=== PATIENT | female | born 1940 | race Caucasian/White ===

== ENCOUNTER → 2017-05-01 13:36 | Outpatient (CLI) | payer MEDICARE ==
[2016-04-11 09:51] VITALS: BMI 24.3
[~2017-05-01 13:36] MED LIST: ADVAIR 250/501 DISK INH; ARAVA10 MG PO; BAYER CHEWABLE81 MG PO; COUMADIN5 MG PO; CRESTOR5 MG PO; DEXILANT30 MG PO; GABAPENTIN100 MG PO; HCTZ25 MG PO; HYDROCODON-ACE1 EAC7 PO; IMDUR60 MG PO; LISINOPRIL-HCTZ1 T13 PO; LISINOPRIL10 MG PO; MAXIPIME INJ2 GM IV; MAXZIDE-25 MG T1 TAB PO; NITROSTAT0.4 MG SL; OYSCO 500+D TAB1 TAB PO; PEPCID20 MG PO; PLAVIX75 MG PO; PREDNISONE10 MG PO; PREDNISONE5 MG PO; PROAIR HFA8.5 GM INH; SODIUM CL 0.91000 ML IV; SPIRIVA18 MCG INH; SYNTHROID50 MCG PO; TUDORZA PRESS400 MCG IH; TYLENOL 325 MG325 MG PO; ULTRAM50 MG PO; VANCOMYCIN IV; VANCOMYCIN1 GM/2501 IV; VENTOLIN HFA18 GM INH; ZOFRAN4 MG PO; ZOSYN 3.373.375 G/VI IV; [UNRECOGNIZED DRUG - OTHER] PO
== END | disposition home or self-care (01) ==
LOC: D.US 13:36
DX: I65.23 Occlusion and stenosis of bilateral carotid arteries (principal)

== ENCOUNTER → 2018-01-17 14:05 | Outpatient (CLI) | payer MEDICARE ==
[2016-04-11 09:51] VITALS: BMI 24.3
== END | disposition home or self-care (01) ==
LOC: D.CT 14:05
DX: M79.605 Pain in left leg (principal); M79.604 Pain in right leg

== ENCOUNTER → 2018-02-26 09:21 | Outpatient (CLI) | payer MEDICARE ==
[2016-04-11 09:51] VITALS: BMI 24.3
== END | disposition home or self-care (01) ==
LOC: D.MRI 09:21
DX: M25.561 Pain in right knee (principal)

== ENCOUNTER → 2018-04-30 10:25 | Outpatient (CLI) | payer MEDICARE ==
[2016-04-11 09:51] VITALS: BMI 24.3
== END | disposition home or self-care (01) ==
LOC: D.US 10:25
DX: I65.23 Occlusion and stenosis of bilateral carotid arteries (principal)

== ENCOUNTER 2019-03-04 16:12 | Emergency (ER) | payer MEDICARE ==
[~2019-03-04] VITALS: Ht 157.5 cm; Wt 62.3 kg
[2019-03-04 16:13] VITALS: Ht 157.5 cm; Wt 62.3 kg
[2019-03-04 17:22] LABS: ALBUMIN 3.1 g/dL (3.4-5.0); ALKALINE PHOSPHATASE 69 U/L (46-116); ALT (SGPT) 21 U/L (10-68); BASOPHILS 0.1 % (0-2); BILIRUBIN - TOTAL 0.35 mg/dL (0.2-1.3); CALC OSMOLALITY 276 mosm/kg (275-300); CALCIUM 8.5 mg/dL (8.5-10.1); CHLORIDE - SERUM 99 mmol/L (98-107); CREATININE - SERUM 0.9 mg/dL (0.6-1.3); EOSINOPHILS 0.7 % (0-7); GLUCOSE 125 mg/dL (74-106); HEMATOCRIT 38.2 % (36.0-48.0); HEMOGLOBIN 12.5 g/dL (12-16); IMMATURE GRANULOCYTES 0.1 % (0-5); LYMPHOCYTES 6.5 % (15-50); MCHC 32.7 g/dL (31.0-37.0); MCV 85.7 fL (80.0-100.0); MEAN PLATELET VOLUME 9.8 fL (7.4-10.4); MONOCYTES 5.9 % (2-11); NEUTROPHILS 86.7 % (40-80); POTASSIUM - SERUM 4.2 mmol/L (3.5-5.1); PROTEIN - SERUM 7.7 g/dL (6.4-8.2); RBC 4.46 10x6/uL (4.00-5.40); RDW 14.6 % (11.5-14.5); SODIUM 137 mmol/L (136-145); UREA NITROGEN 17 mg/dL (7-18); WBC 7.4 10x3/uL (4.8-10.8); eGFR NON AFRICAN AMERICAN 64 mL/min (90-120)
[2019-03-04 17:28] LABS: PLATELET COUNT 206 10x3/uL (130-400)
[2019-03-04 17:31] LABS: CREATINE KINASE 56 UL (21-215); PRO BNP 393 pg/mL (0-450)
[2019-03-04 17:34] LABS: TROPONIN-I < 0.017 ng/mL (0.000-0.060)
[2019-03-04 18:44] LABS: APPEARANCE CLEAR (CLEAR); BILIRUBIN NEGATIVE (NEGATIVE); COLOR YELLOW (YELLOW); GLUCOSE NEGATIVE (NEGATIVE); KETONE NEGATIVE (NEGATIVE); NITRITE NEGATIVE (NEGATIVE); PROTEIN NEGATIVE (NEGATIVE); UROBILINOGEN NORMAL (NORMAL)
[2019-03-04] MEDS ORDERED: PEPCID40 MG PO (21:12)
[2019-03-04 21:43] VITALS: BP 168/83
== END 2019-03-04 21:43 | disposition home or self-care (01) ==
LOC: D.ER 16:12
PROVIDERS: Family Medicine
DX: J44.1 Chronic obstructive pulmonary disease with (acute) exacerbation (principal); I10 Essential (primary) hypertension

== ENCOUNTER → 2019-04-09 10:57 | Outpatient (CLI) | payer MEDICARE ==
[2019-03-04 16:13] VITALS: BMI 25.1
[~2019-04-09 10:57] MED LIST changes: +PEPCID40 MG PO
== END | disposition home or self-care (01) ==
LOC: D.HCCARDIO 10:57
PROVIDERS: ATTEND Internal Medicine Cardiovascular Disease
DX: I25.10 Atherosclerotic heart disease of native coronary artery without angina pectoris (principal)

== ENCOUNTER → 2019-04-26 08:45 | Outpatient (CLI) | payer MEDICARE ==
[2019-03-04 16:13] VITALS: BMI 25.1
== END | disposition home or self-care (01) ==
LOC: D.US 08:45
PROVIDERS: ATTEND Internal Medicine Cardiovascular Disease
DX: I65.23 Occlusion and stenosis of bilateral carotid arteries (principal)

== ENCOUNTER 2019-05-27 09:42 | Observation (INO) | payer MEDICARE ==
[~2019-05-27] VITALS: Ht 157.5 cm; Wt 50.0 kg
--- NOTE | ~2019-05-27 | CN ---
PATIENT NAME:NORI JAY MEDICAL RECORD: [id number] : 36 LOCATION:D.[facility].E10- ADMIT DATE: 05/27/19 ACCOUNT: [id number] CONSULTING PHYSICIAN: FEROZ SHEN MD REFERRING PHYSICIAN: EUNICE MURPHY MD DATE OF CONSULTATION: 05/27/2019 CARDIOLOGY CONSULT ADMITTING DIAGNOSES: 1. Atypical chest pain. 2. Coronary artery disease. 3. Previous percutaneous transluminal coronary angioplasty stent in 2013. 4. Hypertension. 5. Hyperlipidemia. 6. Chronic obstructive pulmonary disease. 7. Smoking history. HISTORY OF PRESENT ILLNESS: Ms. Jay has chest pain on the right side up near her shoulder only when she coughs. This is not at all like her previous angina. Her last cardiac intervention was 2013. Her EKG is with no ST-T abnormalities. Troponin is normal. PHYSICAL EXAMINATION: GENERAL APPEARANCE: Well-nourished, well-developed, appears stated age. Level of distress, comfortable. PSYCHIATRIC: Mental status, alert, normal affect. Orientation, oriented to time, place and person. EYES: Lids and conjunctiva, noninjected. No discharge, no pallor. ENT: Lips, teeth, gums, normal dentition. Oropharynx, no cyanosis, no pallor. NECK: Carotid arteries, bilateral normal upstroke, no bruits, no thrills. JUGULAR VEINS: No jugular venous pressure or distention. CERVICAL LYMPH NODES: Nontender, nonenlarged. THYROID: Not enlarged. Nontender. No nodules. LUNGS: Respiratory effort, unlabored. CHEST: Normal curvature. No thoracic deformity. No chest wall tenderness. Percussion, resonant. Auscultation, clear. No wheezes, no rales, no rhonchi. CARDIOVASCULAR: Precordial exam, nondisplaced. No heaves or pericardial thrills. Rate and rhythm, regular. Heart sounds, normal S1, normal S2. No S3, no gallop, no rub. Systolic murmur, not heard. Diastolic murmur, not heard. EXTREMITIES: No cyanosis, no edema. Peripheral pulses, full and equal in all extremities, except as noted. No bruits appreciated. ABDOMEN: Soft, nondistended. Normal aorta. No bruit. Nontender. No masses. Liver, nontender, no hepatomegaly. Spleen, nontender, no splenomegaly. MUSCULOSKELETAL: No joint tenderness. No joint swelling. No erythema. NEUROLOGICAL: Normal gait, normal strength, normal tone. SKIN: Warm and dry. OVERALL IMPRESSION: Atypical chest pain, it is musculoskeletal in nature. This is noncardiac. No other cardiac workup or treatment is necessary at this time. TRANSINT:[id number] Voice Confirmation ID: [id number] DOCUMENT ID: [id number] CONSULT REPORT [id number] NORI JAY JEFFREY MD CC: [id number] DICTATION DATE: 05/27/19 1202 FILTRATION PLANT MECHANIC: 05/27/19 1221 ADM IN [facility] [address] [id number]
[2019-05-27 09:47] VITALS: Ht 157.5 cm; Wt 50.0 kg
[2019-05-27 10:27] LABS: BASOPHILS 0.3 % (0-2); EOSINOPHILS 2.8 % (0-7); HEMATOCRIT 35.2 % (36.0-48.0); HEMOGLOBIN 11.7 g/dL (12-16); IMMATURE GRANULOCYTES 0.3 % (0-5); LYMPHOCYTES 13.7 % (15-50); MCH 28.5 pg (26.0-34.0); MCHC 33.2 g/dL (31.0-37.0); MCV 85.9 fL (80.0-100.0); MEAN PLATELET VOLUME 9.5 fL (7.4-10.4); MONOCYTES 12.6 % (2-11); NEUTROPHILS 70.3 % (40-80); PLATELET COUNT 167 10x3/uL (130-400); RDW 14.2 % (11.5-14.5); WBC 6.1 10x3/uL (4.8-10.8)
[2019-05-27 10:31] LABS: ALBUMIN 2.9 g/dL (3.4-5.0); ALKALINE PHOSPHATASE 67 U/L (46-116); ALT (SGPT) 21 U/L (10-68); BILIRUBIN - TOTAL 0.27 mg/dL (0.2-1.3); CALC OSMOLALITY 266 mosm/kg (275-300); CALCIUM 8.5 mg/dL (8.5-10.1); CARBON DIOXIDE 31.2 mmol/L (21.0-32.0); CHLORIDE - SERUM 98 mmol/L (98-107); GLUCOSE 107 mg/dL (74-106); POTASSIUM - SERUM 4.1 mmol/L (3.5-5.1); PROTEIN - SERUM 7.2 g/dL (6.4-8.2); SODIUM 133 mmol/L (136-145); UREA NITROGEN 15 mg/dL (7-18); eGFR NON AFRICAN AMERICAN 56 mL/min (90-120)
[2019-05-27 10:40] LABS: MAGNESIUM - SERUM 1.8 mg/dL (1.8-2.4); PRO BNP 252 pg/mL (0-450); TROPONIN-I < 0.017 ng/mL (0.000-0.060)
[2019-05-27 11:20] VITALS: BP 114/60
[2019-05-27 12:00] VITALS: BP 122/64
[2019-05-27 12:32] VITALS: BP 114/74
== END 2019-05-27 12:32 | disposition home or self-care (01) ==
LOC: D.ER 09:42 → D.EDHOLD 11:41 → D.M2 11:41 → OBSVTIME 11:51 → D.EDHOLD 12:09
PROVIDERS: Family Medicine; ADMIT Family Medicine; ATTEND Family Medicine
DX: R07.9 Chest pain, unspecified (principal); I25.10 Atherosclerotic heart disease of native coronary artery without angina pectoris; E78.5 Hyperlipidemia, unspecified; I10 Essential (primary) hypertension; J44.9 Chronic obstructive pulmonary disease, unspecified; Z95.5 Presence of coronary angioplasty implant and graft; Z87.891 Personal history of nicotine dependence

== ENCOUNTER 2019-10-27 11:43 | Inpatient (IN) | payer MEDICARE ==
[2019-10-27] VITALS (13 sets, daily range): BP systolic 118–178; BP diastolic 28–99; BMI 24.0
[~2019-10-27] VITALS: Ht 157.5 cm; Wt 68.6 kg
--- NOTE | 2019-10-27 12:15 | NUR ---
PT TAKEN OFF C-PAP AND PLACED ON 4/L/NC
[2019-10-27 12:31] LABS: BASOPHILS 0.1 % (0-2); EOSINOPHILS 0 % (0-7); HEMATOCRIT 36.2 % (36.0-48.0); HEMOGLOBIN 11.7 g/dL (12-16); IMMATURE GRANULOCYTES 0.2 % (0-5); LYMPHOCYTES 3.5 % (15-50); MCHC 32.3 g/dL (31.0-37.0); MCV 86.6 fL (80.0-100.0); MONOCYTES 8.5 % (2-11); NEUTROPHILS 87.7 % (40-80); RBC 4.18 10x6/uL (4.00-5.40); RDW 15.5 % (11.5-14.5); WBC 10.1 10x3/uL (4.8-10.8)
[2019-10-27 12:36] LABS: PLATELET COUNT 207 10x3/uL (130-400)
[2019-10-27 12:43] LABS: CALC OSMOLALITY 269 mosm/kg (275-300); CALCIUM 8.8 mg/dL (8.5-10.1); CARBON DIOXIDE 28.3 mmol/L (21.0-32.0); CHLORIDE - SERUM 97 mmol/L (98-107); CREATININE - SERUM 0.7 mg/dL (0.6-1.3); GLUCOSE 148 mg/dL (74-106); POTASSIUM - SERUM 4.3 mmol/L (3.5-5.1); SODIUM 132 mmol/L (136-145); UREA NITROGEN 17 mg/dL (7-18); eGFR NON AFRICAN AMERICAN 85 mL/min (90-120)
[2019-10-27 12:44] LABS: INR 3.26 (0.85-1.17); PROTIME 32.4 SECONDS (11.6-15.0)
[2019-10-27 12:45] LABS: APTT 65.5 SECONDS (22.8-39.4)
[2019-10-27 13:03] LABS: ALBUMIN 2.8 g/dL (3.4-5.0); ALKALINE PHOSPHATASE 55 U/L (46-116); ALT (SGPT) 15 U/L (10-68); CKMB 2.5 U/L (0.0-3.6); CREATINE KINASE 124 UL (21-215); MAGNESIUM - SERUM 1.6 mg/dL (1.8-2.4); PRO BNP 1417 pg/mL (0-450); TROPONIN-I < 0.017 ng/mL (0.000-0.060)
--- NOTE | 2019-10-27 14:35 | NUR ---
PATIENT ADMITTED FROM ER PER STRETCHER, TRANSFERED SELF TO BED. ON NASAL CANNULA ON ARRIVAL, PLACE BIPAP AT 40% OXYGEN. PATIENT DOES BECOME SHORT OF BREATH WITH TRANSFERRING SELF. LEFT HAND INFUSING WITH LEVAQUIN, LEFT AC INFUSING WITH MAGNESIUM. PATIENT DENIES PAIN. MONITOR SR.
--- NOTE | 2019-10-27 15:14 | MORECARE ---
CASE MANAGEMENT DISCHARGE SUMMARY PATIENT: NORI JAY UNIT: [id number] ADM DATE: 10/27/19 AGE: 79 : 38 SEX: F ROOM/BED: D.2303 AUTHOR: SABI CORTES PHYSICIAN: REFERRING PHYSICIAN: JACOBO ARORA MD DATE OF SERVICE: 10/27/19 Discharge Plan Patient Name: NORI JAY Facility: [facility]:[place] : 1940 Planned Disposition: Home Anticipated Discharge Date: 10/29/19 Discharge Date: Expected LOS: 2 Initial Reviewer: [email or web address] Initial Review Date: 10/27/2019 Generated: 10/27/19 4:14 pm Patient Name: NORI JAY Page [phone] at 1514 All edits/amendments must be made on the electronic document DICTATION DATE: 10/27/19 151 REIMBURSEMENT ANALYST: RUPAL 10/27/19 151 RPT#: [id number] DC DATE: STATUS: ADM IN [facility] [address] [place] [address] END OF REPORT
--- NOTE | 2019-10-27 15:23 | MORECARE ---
CASE MANAGEMENT DISCHARGE SUMMARY PATIENT: NORI JAY UNIT: [id number] ADM DATE: 10/27/19 AGE: 79 : 38 SEX: F ROOM/BED: D.2303 AUTHOR: SABI CORTES PHYSICIAN: REFERRING PHYSICIAN: JACOBO ARORA MD DATE OF SERVICE: 10/27/19 Discharge Plan Patient Name: NORI JAY Facility: [facility]:[place] : 1940 Planned Disposition: Home Anticipated Discharge Date: 10/29/19 Discharge Date: Expected LOS: 2 Initial Reviewer: [email or web address] Initial Review Date: 10/27/2019 Generated: 10/27/19 4:23 pm Last DP export: 10/27/19 2:14 p Patient Name: NORI JAY Page [phone] at 1523 All edits/amendments must be made on the electronic document DICTATION DATE: 10/27/19 1523 FURNACE ROOM SUPERVISOR: RUPAL 10/27/19 1523 RPT#: [id number] DC DATE: STATUS: ADM IN [facility] [address] [place] [address] END OF REPORT
[2019-10-27 15:25] LABS: % SATURATION 7 % (15-55); IRON 19 ug/dl (35-150); TOTAL IRON BIND CAPACITY 238 ug/dl (260-445); UNSAT IRON BIND CAPACITY 219 ug/dl (150-375)
[2019-10-27] MEDS ORDERED: GABAPENTIN100 MG PO (15:41)
[2019-10-27] MEDS ORDERED: NORVASC2.5 MG PO (15:42)
--- NOTE | 2019-10-27 15:47 | MORECARE ---
CASE MANAGEMENT DISCHARGE SUMMARY PATIENT: NORI JAY UNIT: [id number] ADM DATE: 10/27/19 AGE: 79 : 38 SEX: F ROOM/BED: D.2303 AUTHOR: SEBASTIANDOC PHYSICIAN: REFERRING PHYSICIAN: JACOBO ARORA MD DATE OF SERVICE: 10/27/19 Discharge Plan Patient Name: NORI JAY Facility: [facility]:[place] : 1940 Planned Disposition: Home Anticipated Discharge Date: 10/29/19 Discharge Date: Expected LOS: 2 Initial Reviewer: [email or web address] Initial Review Date: 10/27/2019 Generated: 10/27/19 4:46 pm DCP- Discharge Planning Updated by [email or web address]: Petra Durán on 10/27/19 2:[address] DC PLAN: Return home independently with her significant other. ANTICIPATED DC NEEDS: Denied known dc needs. CM met with patient to complete initial dc planning assessment. CM educated patient on the CM role and verbal consent given by patient to complete assessment. CM verified patient's address, phone number, and emergency contact phone numbers. Patient lives at home independently with her significant other. At discharge patient plans to return home and feels this is a safe discharge. CM discussed availability of home health, rehab services, and medical equipment. Patient denied known discharge needs at this time. Transportation provider at discharge will be Alfonzo. CM will continue to follow and will assist as needed with dc plans/needs. Petra Durán RN, [facility] DCPIA - Discharge Planning Initial Assessment Updated by [email or web address]: Petra Durán on 10/27/19 3:44 pm * Is the patient Alert and Oriented? Yes * How many steps to enter\exit or inside your home? None * PCP Dr. Bethea * Pharmacy [facility] [address] [place] [phone] * Preadmission Environment Home with Family * ADLs Independent * Equipment Cane Nebulizer Oxygen * Other Equipment Home oxygen with portability. Chris is DME provider. * List name and contact numbers for known caregivers / representatives who currently or will assist patient after discharge: Alfonzo Beltran - [facility] - [phone] * Verbal permission to speak to the caregivers and representatives has been obtained from the patient. Yes * Community resources currently utilized None * Additional services required to return to the preadmission environment? No * Can the patient safely return to the preadmission environment? Yes * Has this patient been hospitalized within the prior 30 days at any hospital? No Last DP export: 10/27/19 2:23 p Patient Name: NORI JAY Page [phone] at 1547 All edits/amendments must be made on the electronic document DICTATION DATE: 10/27/19 1546 MARBLE INSTALLER: RUAPL 10/27/196 RPT#: [id number] DC DATE: STATUS: ADM IN [facility] [address] [place] [address] END OF REPORT
--- NOTE | 2019-10-27 16:36 | NUR ---
ASSESSMENT COMPLETED PATIENT ANSWERS QUESTIONS APPRIOPIATELY. FRIEND HERE UPDATE GIVEN. BREATHING BETTER ON BIPAP.
--- NOTE | 2019-10-27 17:27 | NUR ---
DR. ESPINOSA HERE. DINNER TRAY SERVED. ATE ONE BITE AND BECAME TOO SHORT OF BREATH TO EAT. BIPAP MASK REPLACED. TALKED WITH ABOUT LIFE SUPPORT HAVE A TUBE PLACED DOWN HER THROAT IF SHE BECOMES UNABLE TO BREATH OR IF SHE WANTS CPR DONE IF HEART STOPS, SHE STATES SHE DOES NOT WANT CPR OR TO PLACED ON LIFE SUPPORT AND HER DAUGHTER HAS ALL THE PAPERWORK, HER DAUGHTER WILL BE HERE TOMORROW. DR. ESPINOSA NOTIFIED. PO MED TAKEN.
--- NOTE | 2019-10-27 18:00 | NUR ---
PHILLIPS CATH INSERTED IN ENGINEER THIRD ASSISTANT 16 [place] WITHOUT DIFFICULTY, IMMEDIATE RETURN OF CLEAR YELLOW URINE. PATIENT TOLERATED WELL. PHILLIPS SECURE TO RIGHT THIGH. PATIENT RESTING COMFORTABLY ON BIPAP. 1/2 NS INFUSING RIGHT AC AT 75 ML HOUR. NO REDNESS OR SWELLING AT SITE.
[2019-10-27 18:38] LABS: APPEARANCE SL CLDY (CLEAR); BILIRUBIN NEGATIVE (NEGATIVE); COLOR DK YELLOW (YELLOW); GLUCOSE NEGATIVE (NEGATIVE); KETONE NEGATIVE (NEGATIVE); NITRITE NEGATIVE (NEGATIVE); PROTEIN TRACE mg/dL (NEGATIVE); SPECIFIC GRAVITY 1.025 (1.005-1.020); UROBILINOGEN NORMAL (NORMAL)
--- NOTE | 2019-10-27 19:00 | NUR ---
REPORT RECECIVED. RECEIVED PATIENT IN BED. AWAKE ALERT AND ORIENTED X 4. ON BIPAP. ASSESSMENT COMPLETED PER FLOW SHEET WITH NO ACUTE DISTRESS OBSERVED AT PRESENT. MONITORS CONNECTED TO PATIENT WITH ALARMS SET. VSS. CALL LIGHT IN REACH AND ABLE TO UTILIZE TO MAKE NEEDS KNOWN.
--- NOTE | 2019-10-27 20:05 | NUR ---
PATIENT TOLL SERVICE OBSERVER LIGHT. ENTERED ROOM PATIENT FOUND TO BE DYSPNEIC/TACHYPNEIC AND USING ACCESSORY MUSCLES RESP 30-35 02 SAT 96% AND REMAINS ON BIPAP AT ORDERED SETTINGS. SKIN FLUSHED/DIAPHORETIC. DENIES PAIN. BP 200/110 HR 106. HOB ELEVATED MORE TO EASE BREATHING. DR. JESÚS WALDEN
--- NOTE | 2019-10-27 20:10 | NUR ---
SPOKE WITH DR. ESPINOSA. UPDATED ON PAIALANTS CURRENT CONDITION. NEW ORDERS RECEIVED.
--- NOTE | 2019-10-27 20:14 | NUR ---
MORPHINE 2 MG IVP ADMIN AND EFFECTIVE. RESP EFFORT/RATE DECREASED. BP LOWERED TO 140'S SYSTOLIC. PATIENT EXPRESSED FEELING BETTER. CALL LIGHT IN REACH
--- NOTE | 2019-10-27 21:00 | NUR ---
RESTING QUIETLY WITH EYES CLOSED, EASILY ROUSED AND ALERT. VSS. RESP EVEN AND UNLABORED RR20. CONTINUES ON BIPAP. CALL LIGHT IN REACH
--- NOTE | 2019-10-27 23:00 | NUR ---
RESTING WITH EYES CLOSED, EASILY ROUSED AND ALERT. VSS. REASSESSMENT COMPLETED PER FLOW SHEET. WITH NO ACUTE DISTRESS OBSERVED. CONTINUES ON BIPAP
[2019-10-28] VITALS (71 sets, daily range): BP systolic 106–209; BP diastolic 57–117; Ht 157.5 cm; Wt 68.6 kg
--- NOTE | 2019-10-28 01:00 | NUR ---
RESTING WITH EYES CLOSED, EASILY ROUSED AND ALERT. VSS
--- NOTE | 2019-10-28 03:00 | NUR ---
REASSESSMENT COMPLETED PER FLOW SHEET. CONTINUE POC
[2019-10-28 03:38] LABS: BASOPHILS 0.2 % (0-2); EOSINOPHILS 0 % (0-7); HEMATOCRIT 35.6 % (36.0-48.0); HEMOGLOBIN 11.6 g/dL (12-16); IMMATURE GRANULOCYTES 0.2 % (0-5); LYMPHOCYTES 4.4 % (15-50); MCH 28.1 pg (26.0-34.0); MCHC 32.6 g/dL (31.0-37.0); MCV 86.2 fL (80.0-100.0); MEAN PLATELET VOLUME 9.1 fL (7.4-10.4); MONOCYTES 5.4 % (2-11); NEUTROPHILS 89.8 % (40-80); PLATELET COUNT 229 10x3/uL (130-400); RBC 4.13 10x6/uL (4.00-5.40); RDW 15.5 % (11.5-14.5)
[2019-10-28 03:41] LABS: WBC 5.9 10x3/uL (4.8-10.8)
[2019-10-28 03:44] LABS: INR 3.43 (0.85-1.17); PROTIME 33.7 SECONDS (11.6-15.0)
[2019-10-28 03:53] LABS: ANION GAP 12.3 mmol/L (8-16); CALCIUM 8.8 mg/dL (8.5-10.1); CREATININE - SERUM 0.8 mg/dL (0.6-1.3); PHOSPHOROUS 3.2 mg/dL (2.5-4.9); POTASSIUM - SERUM 4.3 mmol/L (3.5-5.1)
[2019-10-28 03:55] LABS: MAGNESIUM - SERUM 2.2 mg/dL (1.8-2.4)
--- NOTE | 2019-10-28 07:00 | NUR ---
PT REPORT RECEIVED FROM INSPECTOR MECHANICAL NURSE. SHIFT ASSESSMENT COMPLETED AT THIS TIME. NO VISIBLE SIGNS OF DISTRESS NOTED. WILL CONTINUE TO MONITOR
--- NOTE | 2019-10-28 08:30 | NUR ---
STARTED PT ON A CARDENE DRIP DUE TO HYPERTENSION. WILL CONTINUE TO MONITOR
--- NOTE | 2019-10-28 09:00 | NUR ---
PT GIVEN AM MEDS. TOLERATED WELL. TRIED TO EAT BREAKFAST. ATE TWO BITES BUT HAD TO GO BACK ON BIPAP BECAUSE OF SOB. WILL CONTINUE TO MONITOR
--- NOTE | 2019-10-28 11:15 | NUR ---
DR ESPINOSA AT BEDSIDE. UPDATE GIVEN. ORDER RECEIVED TO TRY VAPOTHERM SO PT CAN ATTEMPT TO EAT LUNCH. REASSESSMENT COMPLETED. WILL CONTINUE TO MONITOR
--- NOTE | 2019-10-28 12:15 | NUR ---
PT PLACED ON VAPOTHERM BY RT. 40L 60% OXYGEN. WILL CONTINUE TO MONITOR. RT AT BEDSIDE.
--- NOTE | 2019-10-28 12:25 | NUR ---
PT BACK ON BIPAP. UNABLE TO TOLERATE BEING ON VAPOTHERM DUE TO SOB. NO VISIBLE SIGNS OF DISTRESS NOTED. WILL CONTINUE TO MONITOR
--- NOTE | 2019-10-28 13:00 | NUR ---
PT RESTING IN BED CURRENTLY. NO VISIBLE SIGNS OF DISTRESS NOTED. WILL CONTINUE TO MONITOR
--- NOTE | 2019-10-28 15:00 | NUR ---
PT RESTING IN BED. FAMILY AT BEDSIDE. PT BECAME NAUSEOUS AND DRY HEAVED INTO BAG. NO VOMITING NOTED. REASSESSMENT COMPLETED. ZOFRAN GIVEN FOR NAUSEA. WILL CONTINUE TO MONITOR
--- NOTE | 2019-10-28 17:00 | NUR ---
PT RESTING IN BED. NO VISIBLE SIGNS OF DISTRESS NOTED. PT STILL USING BIPAP. WILL CONTINUE TO MONITOR
--- NOTE | 2019-10-28 19:00 | NUR ---
ASSESSMENT COMPLETED. BIPAP ON. PT C/O NOT BEING ABLE TO BREATHE, PER ORDERS GIVEN MORPHINE. PATIENT TOOK SEVERAL MINS AFTERWARDS TO RECOVER. HOB ELEVATED. DENIES ANY PAIN
--- NOTE | 2019-10-28 21:00 | NUR ---
PATIENT REFUSED TO REPOSITIONED. STATES SHE CAN'T BREATHE AND THIS IS THE ONLY POSITION SHE CAN BREATHE.
--- NOTE | 2019-10-28 23:00 | NUR ---
RE-ASSESSMENT COMPLETED. CONT TO REFUSE TO REPOSITION. MORE MORPHINE GIVEN D/T C/O AIR HUNGER. STATES SHE DOES NOT WANT AN ETT IF IT'S NEEDED. UNABLE TO TAKE BIPAP OFF FOR ANY TIME OR PT DESAT AND TAKES A WHILE TO RECOVER. PT ALSO REFUSED CHG BATH
[2019-10-29] VITALS (31 sets, daily range): BP systolic 113–202; BP diastolic 64–111
--- NOTE | 2019-10-29 02:00 | NUR ---
LAYING IN BED. EASILY WAKES. C/O HEADACHE. REFUSED TYLENOL PO D/T STATES SHE ALREADY CAN'T BREATHE WITH BIPAP ON. STATED THAT SHE CAN WAIT UNTIL THE NEXT MORPHINE IS DUE SINCE IT'S IV.
--- NOTE | 2019-10-29 03:00 | NUR ---
RE-ASSESSMENT COMPLETED. NO CHANGES SINCE LAST ASSESSMENT.
[2019-10-29 04:21] LABS: BASOPHILS 0 % (0-2); EOSINOPHILS 0 % (0-7); HEMATOCRIT 35.1 % (36.0-48.0); HEMOGLOBIN 11.2 g/dL (12-16); IMMATURE GRANULOCYTES 0.2 % (0-5); LYMPHOCYTES 1.2 % (15-50); MCH 27.6 pg (26.0-34.0); MCHC 31.9 g/dL (31.0-37.0); MCV 86.5 fL (80.0-100.0); MEAN PLATELET VOLUME 9.5 fL (7.4-10.4); MONOCYTES 3.9 % (2-11); NEUTROPHILS 94.7 % (40-80); PLATELET COUNT 246 10x3/uL (130-400); RBC 4.06 10x6/uL (4.00-5.40); RDW 15.4 % (11.5-14.5)
[2019-10-29 04:30] LABS: PROTIME 39.7 SECONDS (11.6-15.0)
[2019-10-29 04:31] LABS: WBC 12.5 10x3/uL (4.8-10.8)
[2019-10-29 04:33] LABS: INR 4.21 (0.85-1.17)
[2019-10-29 04:55] LABS: ANION GAP 10.3 mmol/L (8-16); CALCIUM 8.5 mg/dL (8.5-10.1); CARBON DIOXIDE 26.4 mmol/L (21.0-32.0); CREATININE - SERUM 0.9 mg/dL (0.6-1.3); MAGNESIUM - SERUM 2.1 mg/dL (1.8-2.4); POTASSIUM - SERUM 4.7 mmol/L (3.5-5.1)
--- NOTE | 2019-10-29 05:02 | NUR ---
REPOSITIONED PATIENT, C/O CAN'T BREATHE BUT RECOVERED AFTER APPROX 5 MINS
--- NOTE | 2019-10-29 07:00 | NUR ---
PT REPORT RECEIVED FROM LPN HOME HEALTH NURSE. NO VISIBLE SIGNS OF DISTRESS NOTED. SHIFT ASSESSMENT COMPLETED AT THIS TIME. PT REQUESTING MORPHINE FOR AIR HUNGER. WILL CONTINUE TO MONITOR
--- NOTE | 2019-10-29 09:00 | NUR ---
PT RESTING IN BED. FAMILY AT BEDSIDE. NO VISIBLE SIGNS OF DISTRESS NOTED. WILL CONTINUE TO MONITOR.
--- NOTE | 2019-10-29 11:00 | NUR ---
PT RESTING IN BED. REASSESSMENT COMPLETED AT THIS TIME. NO VISIBLE SIGNS OF DISTRESS NOTED. WILL CONTINUE TO MONITOR
--- NOTE | 2019-10-29 12:03 | NUR ---
DAUGHTER IN ROOM. BROUGHT COPY OF LIVING WILL FOR PT. WILL CONTINUE TO MOINTOR
--- NOTE | 2019-10-29 13:00 | NUR ---
PT RESTING IN BED. FAMILY IN ROOM. DR ESPINOSA AT BEDSIDE. UPDATE GIVEN. NEW ORDER FOR XANAX RECEIVED. WILL CONTINUE TO MONITOR
--- NOTE | 2019-10-29 17:00 | NUR ---
PT TRIED TO EAT DINNER TRAY. TOOK ONE BITE AND HAD TO GO BACK ON BIPAP. PT WANTS TO TRY AGAIN. WILL CONTINUE TO MONITOR
--- NOTE | 2019-10-29 17:36 | NUR ---
PT TOLERATED A FEW BITES OF FOOD WHILE BEING OFF BIPAP. HOWEVER PT BECAME TIRED AND SOB. PUT BIPAP MASK BACK ON PT AND WILL CONTINUE TO MONITOR
--- NOTE | 2019-10-29 19:44 | NUR ---
SHIFT ASSESSMENT COMPLETE. PATIENT DENIES ANY NEEDS AT THIS TIME. CALL LIGHT WITHIN REACH, BED IN LOW POSITION.
--- NOTE | 2019-10-29 21:07 | NUR ---
PATIENT MEDS GIVEN PER ORDER. PATIENT STATES THAT SHE DOES NOT WANT HER BREATHING TREATMENTS TONIGHT IF SHE IS ASLEEP. PATIENT ALSO STATES SHE TOLD RESPIRATORY NOT TO WAKE HER FOR TREATMENT.
[2019-10-30] VITALS (24 sets, daily range): BP systolic 108–180; BP diastolic 64–97
--- NOTE | 2019-10-30 00:26 | NUR ---
PATIENT VERY ANXIOUS, RR 35-40, AND SPO2 95%. PATIENT IS UNABLE TO TAKE BIPAP MASK OFF DUE TO SPO2 DECREASING INTO THE 80'S WITHIN 1-2 MINUTES. MEDS GIVEN FOR AIR HUNGER AND ANXIETY. CALL LIGHT WITHIN REACH, BED IN LOW POSITION.
[2019-10-30 03:39] LABS: BASOPHILS 0 % (0-2); EOSINOPHILS 0 % (0-7); HEMATOCRIT 34.5 % (36.0-48.0); IMMATURE GRANULOCYTES 0.2 % (0-5); LYMPHOCYTES 1.9 % (15-50); MCH 27.4 pg (26.0-34.0); MCHC 31.9 g/dL (31.0-37.0); MEAN PLATELET VOLUME 9.2 fL (7.4-10.4); MONOCYTES 4.8 % (2-11); NEUTROPHILS 93.1 % (40-80); PLATELET COUNT 212 10x3/uL (130-400); RBC 4.01 10x6/uL (4.00-5.40); RDW 15.2 % (11.5-14.5)
[2019-10-30 03:41] LABS: WBC 9.3 10x3/uL (4.8-10.8)
[2019-10-30 03:51] LABS: CALCIUM 8.5 mg/dL (8.5-10.1); CARBON DIOXIDE 26.5 mmol/L (21.0-32.0); CREATININE - SERUM 0.9 mg/dL (0.6-1.3); MAGNESIUM - SERUM 2.3 mg/dL (1.8-2.4); PHOSPHOROUS 3.4 mg/dL (2.5-4.9)
[2019-10-30 03:53] LABS: POTASSIUM - SERUM 5.5 mmol/L (3.5-5.1)
[2019-10-30 03:55] LABS: INR 4.09 (0.85-1.17); PROTIME 40.1 SECONDS (11.6-15.0)
--- NOTE | 2019-10-30 07:15 | NUR ---
REPORT RECEIVED. ASSESSMENT COMPPLETE PER FLOW SHEET. VSS. NO NEW CHANGES WILL CONTINUE TO MONITOR
--- NOTE | 2019-10-30 08:43 | NUR ---
NUTRITION F//U PT REMAINS ON BIPAP. NURSING REPORTS PT UNABLE TO TAKE PO DUE TO BIPAP USE. MAY BENEFIT FROM PROCALAMINE PPN. WILL CONTINUE TO MONITOR. RD FOLLOWING
--- NOTE | 2019-10-30 09:00 | NUR ---
PT RESTING COMFORTABLY REPOSITIOEND FOR COMFORT. WILL CONTINUE TO MONITOR
--- NOTE | 2019-10-30 11:00 | NUR ---
REASSESSMENT COMPLETE PER FLOW SHEET. VSS. NO NEW CHANGES PT RESTING COMFORTABLY WILL CONTINUE TOMONITOR
--- NOTE | 2019-10-30 13:10 | NUR ---
FAMILY AT BEDSIDE GIVEN UDPATE NO NEW CAHNGES WILL CONTINUE TO MONITOR
--- NOTE | 2019-10-30 15:00 | NUR ---
REASSESSMENT COMPLETE PER FLOW SHEET. NO NEW CHANES PT RESTING COMFORTABLY WILL CONTINUE TO MONITOR
--- NOTE | 2019-10-30 17:10 | NUR ---
FAMILY AT BEDSIDE. NO NEW CHANGES. PT RESTING COMFORTABLY WILL CONTINUE TO MONITOR
--- NOTE | 2019-10-30 19:16 | NUR ---
SWITCHED SUPPLEMENTAL O2 DEVICE TO VAPOTHERM 25L 30% 02
--- NOTE | 2019-10-30 19:25 | NUR ---
PATIENT WANTED TO TRY VAPOTHERM AGAIN WHILE FAMILY WAS NOT PRESENT DUE TO ANXIETY SHE GETS WITH EVERYONE IN ROOM. RT RYLEE HERE CHANGING PATIENT OVER TO VAPOTHERM.
--- NOTE | 2019-10-30 19:52 | NUR ---
PATIENT HAS VERY LABORED BREATHING AND WANTS TO GO BACK ON BIPAP. SPO2 WAS 92% AT THIS TIME. BIPAP PLACED ON PATIENT.
--- NOTE | 2019-10-30 23:00 | NUR ---
Reassessment complete with no changes at this time. Call light within reach, bed in low position.
[2019-10-31] VITALS (24 sets, daily range): BP systolic 16–191; BP diastolic 44–99
--- NOTE | 2019-10-31 03:00 | NUR ---
Reassessment complete with no changes noted at this time. Call light within reach, bed in low position.
--- NOTE | 2019-10-31 03:17 | NUR ---
PATIENT VERY ANXIOUS, LABORED BREATHING. XANAX GIVEN FOR ANXIETY PER MD ORDER. CALL LIGHT WITHIN REACH, BED IN LOW POSITION.
[2019-10-31 04:32] LABS: BASOPHILS 0 % (0-2); EOSINOPHILS 0 % (0-7); HEMATOCRIT 36.1 % (36.0-48.0); HEMOGLOBIN 11.4 g/dL (12-16); IMMATURE GRANULOCYTES 0.2 % (0-5); LYMPHOCYTES 2.7 % (15-50); MCH 27.3 pg (26.0-34.0); MCHC 31.6 g/dL (31.0-37.0); MCV 86.4 fL (80.0-100.0); MEAN PLATELET VOLUME 9.7 fL (7.4-10.4); MONOCYTES 5.2 % (2-11); NEUTROPHILS 91.9 % (40-80); PLATELET COUNT 231 10x3/uL (130-400); RBC 4.18 10x6/uL (4.00-5.40); RDW 15.6 % (11.5-14.5)
[2019-10-31 04:34] LABS: WBC 6.4 10x3/uL (4.8-10.8)
[2019-10-31 04:46] LABS: ANION GAP 9.3 mmol/L (8-16); CALCIUM 8.6 mg/dL (8.5-10.1); CARBON DIOXIDE 30.5 mmol/L (21.0-32.0); CREATININE - SERUM 0.8 mg/dL (0.6-1.3); INR 3.8 (0.85-1.17); POTASSIUM - SERUM 4.8 mmol/L (3.5-5.1); PROTIME 36.7 SECONDS (11.6-15.0)
--- NOTE | 2019-10-31 06:50 | NUR ---
CHG BATH GIVEN. PATIENT IS LABORED RESPIRATIONS. PHILLIPS CARE DONE. CALL LIGHT WITHIN REACH, BED IN LOW POSITION.
--- NOTE | 2019-10-31 07:00 | NUR ---
REPORT RECEIVED ASSESSMENT COMPLETE PER FLOW SHEET. VSS. NO NEW CHANGES WILL CONTINUE TO MONITOR
--- NOTE | 2019-10-31 08:44 | NUR ---
NUTRITION F/U PT ATE SMALL AMT BREAKFAST BEFORE RESUMING BIPAP. NURSING REPORTS PT DOES BETTER WITH LIQUIDS. WILL ADD ENSURE TO MEALS CONTINUE TO MONITOR. RD FOLLOWING
--- NOTE | 2019-10-31 09:00 | NUR ---
PT ATE 2 BITES OF BREAKFAST. BACK ON BIPAP AT THIS TIME R/T AIR HUNGER
--- NOTE | 2019-10-31 11:00 | NUR ---
REASSESSMENT COMPLETE EPER FLOW SHEET.VSS. NO NEW CAHNGES WILL CONTINUE TO MONITOR
--- NOTE | 2019-10-31 11:31 | NUR ---
Nutrition follow-up: Chart reviewed Pt with very poor po intake 2/2 breathing issues ProcalAmine PPN started @ 50 ml/hr IVF decreased to 25 ml/hr RDN following.
--- NOTE | 2019-10-31 13:00 | NUR ---
FAMILY AT BEDSIDE GIVEN UPDATE NO NEW CHANGES WILL CONTINUE TOMONITOR
--- NOTE | 2019-10-31 15:00 | NUR ---
REASSESSMENT COMPLET EPER FLOW SHEET. VSS. NO NEW CHANGES WILL CONTINUE TOMONITOR
--- NOTE | 2019-10-31 17:00 | NUR ---
PT SLEEPING COMFORTABLY VSS NO NEW CHANGES WILL CONTINUE TO MONITOR
--- NOTE | 2019-10-31 19:15 | NUR ---
PT RESTING QUIETLY, AROUSES EASILY WITH NO C/O, BIPAP IN USE WITH FIO2 @ 50 %, EXPIRATORY WHEEZES NOTED, LEFT PIV INTACT WITH 1/2 NS @ 25 CC/HR AND PROCALAMINE @ 50 CC/HR, PHILLIPS PATENT TO BSD, PULSES EQUAL AND PALPABLE, VITALS STABLE, WILL CONT TO MONITOR
--- NOTE | 2019-10-31 21:00 | NUR ---
PT ASLEEP WITH NO DISTRESS NOTED, WILL CONT TO MONITOR
--- NOTE | 2019-10-31 23:00 | NUR ---
PT REMAINS STABLE, SLEEPING, VITALS STABLE
[2019-11-01] VITALS (49 sets, daily range): BP systolic 117–184; BP diastolic 63–149
--- NOTE | 2019-11-01 01:00 | NUR ---
PT REMAINS ASLEEP, WILL CONT TO MONITOR
--- NOTE | 2019-11-01 03:00 | NUR ---
PT RESTING QUIETLY WITH BIPAP IN USE, NO DISTRESS NOTED
[2019-11-01 03:33] LABS: BASOPHILS 0.2 % (0-2); EOSINOPHILS 0 % (0-7); HEMATOCRIT 35.4 % (36.0-48.0); HEMOGLOBIN 11.4 g/dL (12-16); IMMATURE GRANULOCYTES 0.2 % (0-5); LYMPHOCYTES 4.2 % (15-50); MCH 27.3 pg (26.0-34.0); MCHC 32.2 g/dL (31.0-37.0); MCV 84.9 fL (80.0-100.0); MEAN PLATELET VOLUME 9.1 fL (7.4-10.4); NEUTROPHILS 88.4 % (40-80); RBC 4.17 10x6/uL (4.00-5.40); RDW 15.5 % (11.5-14.5); WBC 5.3 10x3/uL (4.8-10.8)
[2019-11-01 04:03] LABS: PLATELET COUNT 182 10x3/uL (130-400)
[2019-11-01 04:07] LABS: CALC OSMOLALITY 276 mosm/kg (275-300); CALCIUM 8.6 mg/dL (8.5-10.1); CHLORIDE - SERUM 100 mmol/L (98-107); CREATININE - SERUM 0.6 mg/dL (0.6-1.3); POTASSIUM - SERUM 4.3 mmol/L (3.5-5.1); SODIUM 134 mmol/L (136-145); UREA NITROGEN 28 mg/dL (7-18); eGFR NON AFRICAN AMERICAN > 90 mL/min (90-120)
[2019-11-01 04:08] LABS: GLUCOSE 146 mg/dL (74-106)
[2019-11-01 04:18] LABS: INR 3.11 (0.85-1.17); PROTIME 31.3 SECONDS (11.6-15.0)
--- NOTE | 2019-11-01 07:15 | NUR ---
REPORT RECEIVED. PT LAYING QUIETLY IN BED ON VAPOTHERM AT 30%. ALERT AND ORIENTED. PT HAS A PHILLIPS AND AN IV TO HER LEFT FOREARM WITH PROCALAMINE AT 50ML/HR AND CARDENE AT 25ML/HR. HEAD TO TOE ASSESSMENT COMPLETED. VSS. WILL CONTINUE TO MONITOR.
--- NOTE | 2019-11-01 09:48 | NUR ---
PT SITTING UP IN BED. AT BEDSIDE. VSS. NO COMPLAINTS OR NEEDS AT THIS TIME. WILL CONTINUE TO MONITOR.
--- NOTE | 2019-11-01 11:15 | NUR ---
REASSESSMENT COMPLETED. PT MAINTAINING O2 SATURATION GREATER THAN 92 ON VAPOTHERM. NO COMPLAINTS AT THIS TIME. WILL CONTINUE TO MONITOR.
--- NOTE | 2019-11-01 13:15 | NUR ---
FAMILY AT BEDSIDE. VSS. WILL CONTINUE TO MONITOR.
--- NOTE | 2019-11-01 15:30 | NUR ---
AFEBRILE. PT COMPLAINS OF BEING HOT. AIR TURNED DOWN IN ROOM. WILL CONTINUE TO MONITOR.
--- NOTE | 2019-11-01 17:20 | NUR ---
FAMILY AT BEDSIDE GIVEN UDPATE NO NEW CHANGES VSS WILL CONTINUE TOMONITOR
--- NOTE | 2019-11-01 20:28 | NUR ---
PT RESTING QUIETLY WITH BIPAP IN USE, LEFT PIV INTACT WITH PROCALAMINE @ 50 CC/HR/, PHILLIPS PATENT TO BSD, NO DISTRESS NOTED AT THIS TIME, WILL CONT TO MONITOR
--- NOTE | 2019-11-01 21:00 | NUR ---
PT REMAINS ASLEEP ON BIPAP WITH NO DISTRESS NOTED
--- NOTE | 2019-11-01 22:57 | NUR ---
PT MAKES NEEDS KNOWN, VITALS STABLE, NO DISTRESS NOTED
[2019-11-02] VITALS (24 sets, daily range): BP systolic 107–180; BP diastolic 63–110
--- NOTE | 2019-11-02 01:26 | NUR ---
PT SLEEPING WITH NO CHANGES NOTED, WILL CONT TO MONITOR
[2019-11-02 02:58] LABS: BASOPHILS 0.2 % (0-2); EOSINOPHILS 0 % (0-7); HEMATOCRIT 35.9 % (36.0-48.0); HEMOGLOBIN 11.5 g/dL (12-16); IMMATURE GRANULOCYTES 0.5 % (0-5); LYMPHOCYTES 4.9 % (15-50); MCH 27.3 pg (26.0-34.0); MCV 85.3 fL (80.0-100.0); MEAN PLATELET VOLUME 10.2 fL (7.4-10.4); NEUTROPHILS 88.4 % (40-80); PLATELET COUNT 193 10x3/uL (130-400); RBC 4.21 10x6/uL (4.00-5.40); RDW 15.5 % (11.5-14.5); WBC 6.1 10x3/uL (4.8-10.8)
--- NOTE | 2019-11-02 03:00 | NUR ---
PT AWAKENED BY PRODUCTION CELL LEADER FOR AM LABS, PT AGITATED FOR BEING AWAKENED SO EARLY, RT PRESENT FOR UPDRAFT
[2019-11-02 03:09] LABS: CALC OSMOLALITY 276 mosm/kg (275-300); CALCIUM 8.2 mg/dL (8.5-10.1); CARBON DIOXIDE 32.6 mmol/L (21.0-32.0); CHLORIDE - SERUM 101 mmol/L (98-107); CREATININE - SERUM 0.6 mg/dL (0.6-1.3); GLUCOSE 152 mg/dL (74-106); PHOSPHOROUS 2.1 mg/dL (2.5-4.9); POTASSIUM - SERUM 4.4 mmol/L (3.5-5.1); SODIUM 135 mmol/L (136-145); UREA NITROGEN 25 mg/dL (7-18); eGFR NON AFRICAN AMERICAN > 90 mL/min (90-120)
--- NOTE | 2019-11-02 05:04 | NUR ---
PT AWAKE, NO C/O @ THIS TIME, DRINKS FLUIDS WITH ASSISTANCE WITH BIPAP MASK, WILL CONT TO MONITOR
--- NOTE | 2019-11-02 14:47 | NUR ---
ASSISTED TO BEDSIDE COMMODE CHAIR-90% ASSIST-POOR WEIGHT BEARING BY PT PT STATED BREATHING EASIER SITTING UP--BATH AND LINEN CHANGE DONE -80% [id number] PLACED ON PT BY RT -HOB ELEVATED TO 45*-O2 SAT 98%
[2019-11-03] VITALS (24 sets, daily range): BP systolic 120–197; BP diastolic 61–109
[2019-11-03 03:22] LABS: BASOPHILS 0 % (0-2); EOSINOPHILS 0 % (0-7); HEMATOCRIT 36.2 % (36.0-48.0); HEMOGLOBIN 11.6 g/dL (12-16); IMMATURE GRANULOCYTES 1.1 % (0-5); LYMPHOCYTES 6.3 % (15-50); MCH 27.4 pg (26.0-34.0); MCV 85.6 fL (80.0-100.0); MEAN PLATELET VOLUME 9.6 fL (7.4-10.4); MONOCYTES 13.9 % (2-11); NEUTROPHILS 78.7 % (40-80); PLATELET COUNT 197 10x3/uL (130-400); RBC 4.23 10x6/uL (4.00-5.40); RDW 15.5 % (11.5-14.5); WBC 7.5 10x3/uL (4.8-10.8)
[2019-11-03 03:32] LABS: INR 2.45 (0.85-1.17); PROTIME 25.9 SECONDS (11.6-15.0)
[2019-11-03 03:36] LABS: CALC OSMOLALITY 281 mosm/kg (275-300); CALCIUM 8.7 mg/dL (8.5-10.1); CARBON DIOXIDE 32.3 mmol/L (21.0-32.0); CHLORIDE - SERUM 102 mmol/L (98-107); CREATININE - SERUM 0.7 mg/dL (0.6-1.3); GLUCOSE 124 mg/dL (74-106); POTASSIUM - SERUM 4.1 mmol/L (3.5-5.1); SODIUM 137 mmol/L (136-145); UREA NITROGEN 31 mg/dL (7-18); eGFR NON AFRICAN AMERICAN 85 mL/min (90-120)
[2019-11-03 03:37] LABS: PHOSPHOROUS 2.8 mg/dL (2.5-4.9)
--- NOTE | 2019-11-03 19:00 | NUR ---
SHIFT ASSESSMENT COMPLETE. VS STABLE. NO VISUAL CUES OF DISTRESS NOTED. WILL CONTINUE TO MONITOR.
--- NOTE | 2019-11-03 21:00 | NUR ---
VS STABLE. NO DISTRESS NOTED. WILL MONITOR.
--- NOTE | 2019-11-03 21:00 | NUR ---
VS STABLE. NO DISTRESS NOTED. WILL MONITOR.
--- NOTE | 2019-11-03 23:00 | NUR ---
VS STABLE. NO DISTRESS NOTED. WILL MONITOR.
[2019-11-04] VITALS (15 sets, daily range): BP systolic 115–193; BP diastolic 75–99
--- NOTE | 2019-11-04 01:00 | NUR ---
VS STABLE. NO DISTRESS NOTED. WILL MONITOR.
--- NOTE | 2019-11-04 03:00 | NUR ---
VS STABLE. NO DISTRESS NOTED. WILL MONITOR.
[2019-11-04 04:04] LABS: BASOPHILS 0 % (0-2); EOSINOPHILS 0 % (0-7); HEMATOCRIT 39.8 % (36.0-48.0); HEMOGLOBIN 12.6 g/dL (12-16); IMMATURE GRANULOCYTES 0.4 % (0-5); MCH 27.5 pg (26.0-34.0); MCHC 31.7 g/dL (31.0-37.0); MCV 86.7 fL (80.0-100.0); MEAN PLATELET VOLUME 9.9 fL (7.4-10.4); MONOCYTES 10.4 % (2-11); NEUTROPHILS 82.2 % (40-80); PLATELET COUNT 217 10x3/uL (130-400); RBC 4.59 10x6/uL (4.00-5.40); RDW 15.5 % (11.5-14.5); WBC 6.7 10x3/uL (4.8-10.8)
[2019-11-04 04:31] LABS: ALBUMIN 2.4 g/dL (3.4-5.0); ALKALINE PHOSPHATASE 35 U/L (46-116); ALT (SGPT) 32 U/L (10-68); BILIRUBIN - TOTAL 0.44 mg/dL (0.2-1.3); CALC OSMOLALITY 285 mosm/kg (275-300); CALCIUM 8.8 mg/dL (8.5-10.1); CARBON DIOXIDE 36.7 mmol/L (21.0-32.0); CHLORIDE - SERUM 102 mmol/L (98-107); CREATININE - SERUM 0.6 mg/dL (0.6-1.3); GLUCOSE 101 mg/dL (74-106); POTASSIUM - SERUM 4.2 mmol/L (3.5-5.1); PROTEIN - SERUM 5.8 g/dL (6.4-8.2); SODIUM 140 mmol/L (136-145); THYROID STIMULATING HORMONE 1.63 uIU/mL (0.36-3.74); UREA NITROGEN 32 mg/dL (7-18); eGFR NON AFRICAN AMERICAN > 90 mL/min (90-120)
--- NOTE | 2019-11-04 05:00 | NUR ---
VS STABLE. NO DISTRESS NOTED. WILL MONITOR.
--- NOTE | 2019-11-04 07:00 | NUR ---
PT REPORT RECEIVED FROM JAVA GRAILS DEVELOPER NURSE. NO VISIBLE SIGNS OF DISTRESS NOTED. SHIFT ASSESSMENT COMPLETED. WILL CONTINUE TO MONITOR
--- NOTE | 2019-11-04 08:45 | NUR ---
PAGED DR ESPINOSA CONCERNING IV ACCESS. AWAITING CALL BACK
--- NOTE | 2019-11-04 08:55 | NUR ---
DR ESPINOSA CALLED BACK. UPDATE GIVEN. ORDERED MIDLINE PLACEMENT FOR PT IV ACCESS.
--- NOTE | 2019-11-04 09:10 | NUR ---
PT SITTING UP AT BEDSIDE. NO VISIBLE SIGNS OF DISTRESS NOTED. WILL CONTINUE TO MONITOR
--- NOTE | 2019-11-04 09:23 | NUR ---
NUTRITION F/U VISITOR AT BEDSIDE. PT WITH 100% INTAKE ENSURE THIS AM AND PREPARING TO EAT A SAUSAGE AND BISCUIT. WILL CONTINUE TO PROVIDE DIET AND ENSURE. MONITOR PO INTAKE. RD FOLLOWING
--- NOTE | 2019-11-04 09:26 | NUR ---
PT BACK IN BED. VSS.
--- NOTE | 2019-11-04 11:00 | NUR ---
PT RESTING IN BED. NO VISIBLE SIGNS OF DISTRESS NOTED. REASSESSMENT COMPLETED. WILL CONTINUE TO MONITOR
--- NOTE | 2019-11-04 12:45 | NUR ---
DR ESPINOSA AT BEDSIDE. ORDERS TO TRANSFER RECEIVED. WILL CONTINUE TO MONITOR
--- NOTE | 2019-11-04 13:00 | NUR ---
PT RESTING IN BED. REQUESTED TO GO BACK ON BIPAP DUE TO SOB. PLACED PT BACK ON BIPAP. WILL CONTINUE TO MONITOR
--- NOTE | 2019-11-04 14:00 | NUR ---
CALLED RAFAEL HERMOSILLOSHAVING MACHINE OPERATOR TO GET BED FOR PT.
--- NOTE | 2019-11-04 15:00 | NUR ---
PT RESTING IN BED. NO VISIBLE SIGNS OF DISTRESS NOTED. WANTED A DRINK OF WATER. TOOK BIPAP MASK OFF AND GOT PT A SIP OF WATER. WILL CONTINUE TO MONITOR
--- NOTE | 2019-11-04 16:05 | NUR ---
BED ASSIGNMENT CALLED IN. PT GOING TO ROOM [id number]
--- NOTE | 2019-11-04 16:26 | NUR ---
OT NOTE: PT COMPLETED BED MOB TASKS WITH MIN A. PT COMPLETED SIT TO STAND WITH MIN A. PT COMPLETED EOB SITTING WITH SBA. THANK YOU,JOVITA NGUYỄN
--- NOTE | 2019-11-04 16:45 | NUR ---
TRIED CALLING REPORT TO MED 2. LEFT ON HOLD.
--- NOTE | 2019-11-04 16:50 | NUR ---
HUNG UP AND CALLED MED 2 AGAIN. WAITING ON NURSE
--- NOTE | 2019-11-04 16:53 | NUR ---
REPORT CALLED TO MIRIAM ON MED 2. PREPARING TO TRANSFER PT TO FLOOR.
--- NOTE | 2019-11-04 23:10 | NUR ---
PT LYING IN BED RESTING WITH EYES CLOSED. EASILY AROUSED TO VERBAL STIMULATION. PT IS WEARING BiPAP. O2 95% NO SIGNS OR SYMPTOMS OF RESPIRATORY DISTRESS AT THIS TIME. PHILLIPS CATHETER IN PLACE. CLEAR YELLOW URINE FLOWING. BLACK AND BLUE BRUISES TO RIGHT ARM NOTED. LEFT AC 20G SALINE LOCKED, DRESSING IS CLEAN, DRY, AND INTACT. PT STATES LAST BOWEL MOVEMENT WAS TODAY. ABDOMEN IS SOFT TO PALPATIONS. ACTIVE BOWELL SOUNDS X4. RED IRRATATED AREA TO BOTTOM AND GROIN AREA, WOUND CONSULT AND PRN NYSTATIN POWDER VERBAL ORDER PER HALLIE GALARZA APRN. BED IS IN LOWEST POSITON AND CALL LIGHT IS WITHIN REACH. PT ADVISED TO CALL WHEN GETTING TO AND FROM BED. WILL CONTINUE TO MONITOR.
[2019-11-05] VITALS: BP 155/82
--- NOTE | 2019-11-05 02:46 | NUR ---
I have reviewed this patient and I concur with the Shift Assessment completed by the Licensed Practical Nurse today this shift.
[2019-11-05 04:30] VITALS: BP 157/73
[2019-11-05 06:11] LABS: HEMATOCRIT 39.8 % (36.0-48.0); HEMOGLOBIN 12.6 g/dL (12-16); MCH 27.6 pg (26.0-34.0); MCHC 31.7 g/dL (31.0-37.0); MCV 87.1 fL (80.0-100.0); MEAN PLATELET VOLUME 10.3 fL (7.4-10.4); PLATELET COUNT 207 10x3/uL (130-400); RBC 4.57 10x6/uL (4.00-5.40); RDW 15.7 % (11.5-14.5); WBC 6.4 10x3/uL (4.8-10.8)
--- NOTE | 2019-11-05 06:29 | NUR ---
PT LYING IN BED WATCHING T.V. PT ON VAPOTHERM 30LS/60% PULSE OX 96. NO COMPLAINTS OF PAIN AT THIS TIME.
[2019-11-05 06:37] LABS: ALBUMIN 2.5 g/dL (3.4-5.0); ALKALINE PHOSPHATASE 42 U/L (46-116); ALT (SGPT) 35 U/L (10-68); BILIRUBIN - TOTAL 0.55 mg/dL (0.2-1.3); CALC OSMOLALITY 292 mosm/kg (275-300); CALCIUM 8.7 mg/dL (8.5-10.1); CARBON DIOXIDE 32.2 mmol/L (21.0-32.0); CHLORIDE - SERUM 103 mmol/L (98-107); CREATININE - SERUM 0.7 mg/dL (0.6-1.3); GLUCOSE 128 mg/dL (74-106); PROTEIN - SERUM 5.7 g/dL (6.4-8.2); SODIUM 141 mmol/L (136-145); eGFR NON AFRICAN AMERICAN 85 mL/min (90-120)
[2019-11-05 06:49] LABS: POTASSIUM - SERUM 4.7 mmol/L (3.5-5.1); UREA NITROGEN 41 mg/dL (7-18)
--- NOTE | 2019-11-05 07:00 | NUR ---
CALL LIGHT ANSWERED, PT REMOVED FROM BED SANCHEZ. REDNESS AND SCAB NOTED TO COCCYX/BOTTOM. PHILLIPS NOTED WITH DARK, YELLOW URINE. PT ASSISTED TO SIT UP ON SIDE OF BED PER REQUEST. VAPOTHERM IN PLACE AT THIS TIME. DENIES NEEDS OR PAIN AT THIS TIME. PT REPOSITIONED TO COMFORT. BED IN LOWEST POSITION. CALL LIGHT WITHIN REACH. WILL CONTINUE TO MONITOR.
--- NOTE | 2019-11-05 07:39 | NUR ---
CALL LIGHT ANSWERED, PT REMOVED FROM BED SANCHEZ. NO VOID OR BM NOTED. REDNESS AND SCAB NOTED TO COCCYX/BOTTOM. PT ASSISTED TO SIT UP ON SIDE OF BED PER REQUEST. VAPOTHERM IN PLACE AT THIS TIME. DENIES NEEDS OR PAIN AT THIS TIME. PT REPOSITIONED TO COMFORT. BED IN LOWEST POSITION. CALL LIGHT WITHIN REACH. WILL CONTINUE TO MONITOR.
[2019-11-05 08:37] LABS: ANISOCYTOSIS OCC; LYMPHOCYTES 9 % (15-50); MONOCYTES 10 % (2-11); NEUTROPHILS 80 % (40-80); PLATELET ESTIMATE NORMAL; ROULEAUX OCC
--- NOTE | 2019-11-05 10:00 | NUR ---
I have reviewed this patient and I concur with the Shift Assessment completed by the Licensed Practical Nurse today this shift.
[2019-11-05 10:09] VITALS: BP 126/72
--- NOTE | 2019-11-05 10:38 | NUR ---
PT SWITHCED FROM VAPOTHERM TO BIPAP, STATED SHE WAS HAVING SOME SLIGHT SOB. SOB IMPROVED AFTER BIPAP PLACEMENT.
[2019-11-05 11:49] LABS: INR 1.68 (0.85-1.17); PROTIME 19.2 SECONDS (11.6-15.0)
--- NOTE | 2019-11-05 12:08 | NUR ---
OT NOTE: PT PERFORMED VERY WELL TODAY. BED MOB WITH MIN ASSIST; SIT TO STAND WITH MIN ASSIST; TRANSFERS FROM BED TO CHAIR WITH MIN ASSIST; SET UP FOR GROOMING TASKS; AROM EXS TO 90 DEGREES; EDUCATED ON LE EXS WHILE UP IN CHAIR. MIRIAM STEPHENS, OTR/L
--- NOTE | 2019-11-05 12:25 | MORECARE ---
CASE MANAGEMENT DISCHARGE SUMMARY PATIENT: NORI JAY UNIT: [id number] ADM DATE: 10/27/19 AGE: 79 : 38 SEX: F ROOM/BED: D.2106 AUTHOR: SEBASTIANDOC PHYSICIAN: REFERRING PHYSICIAN: JACOBO ARORA MD DATE OF SERVICE: 11/05/19 Discharge Plan Patient Name: NORI JAY Facility: [facility]:[place] : 1940 Planned Disposition: Senior Care Acute Care Facility Anticipated Discharge Date: 10/29/19 Discharge Date: Expected LOS: 2 Initial Reviewer: [email or web address] Initial Review Date: 11/06/2019 Generated: 11/05/19 1:25 pm DCP- Discharge Planning Updated by [email or web address]: Petra Durán on 10/27/19 2:[address] DC PLAN: Return home independently with her significant other. ANTICIPATED DC NEEDS: Denied known dc needs. CM met with patient to complete initial dc planning assessment. CM educated patient on the CM role and verbal consent given by patient to complete assessment. CM verified patient's address, phone number, and emergency contact phone numbers. Patient lives at home independently with her significant other. At discharge patient plans to return home and feels this is a safe discharge. CM discussed availability of home health, rehab services, and medical equipment. Patient denied known discharge needs at this time. Transportation provider at discharge will be Alfonzo. CM will continue to follow and will assist as needed with dc plans/needs. Petra Durán RN, [facility] DCPIA - Discharge Planning Initial Assessment Updated by [email or web address]: Petra Durán on 10/27/19 3:44 pm * Is the patient Alert and Oriented? Yes * How many steps to enter\exit or inside your home? None * PCP Dr. Bethea * Pharmacy [facility] [address] [place] [phone] * Preadmission Environment Home with Family * ADLs Independent * Equipment Cane Nebulizer Oxygen * Other Equipment Home oxygen with portability. Chris is DME provider. * List name and contact numbers for known caregivers / representatives who currently or will assist patient after discharge: Alfonzo Beltran - [facility] - [phone] * Verbal permission to speak to the caregivers and representatives has been obtained from the patient. Yes * Community resources currently utilized None * Additional services required to return to the preadmission environment? No * Can the patient safely return to the preadmission environment? Yes * Has this patient been hospitalized within the prior 30 days at any hospital? No External Providers External Provider: Y[facility] Next Contact Date: 11/05/2019 Service Request Date: Service Type: Resolution: Reviewer: Comments: Last DP export: 10/27/19 2:47 p Patient Name: NORI JAY Page [phone] at 1225 All edits/amendments must be made on the electronic document DICTATION DATE: 11/05/191224 EMERY WHEEL MOLDER: RUPAL 11/05/19 1225 RPT#: [id number] DC DATE: STATUS: ADM IN [facility] [address] [place] [address] END OF REPORT
--- NOTE | 2019-11-05 12:50 | MORECARE ---
CASE MANAGEMENT DISCHARGE SUMMARY PATIENT: NORI JAY UNIT: [id number] ADM DATE: 10/27/19 AGE: 79 : 38 SEX: F ROOM/BED: D.3163 AUTHOR: SEBASTIAN,DOC PHYSICIAN: REFERRING PHYSICIAN: JACOBO ARORA MD DATE OF SERVICE: 11/05/19 Discharge Plan Patient Name: NORI JAY Facility: [facility]:[place] : 1940 Planned Disposition: Skilled Nursing Acute Care Facility Anticipated Discharge Date: 10/29/19 Discharge Date: Expected LOS: 2 Initial Reviewer: [email or web address] Initial Review Date: 11/06/2019 Generated: 11/05/19 1:50 pm Comments DCP- Discharge Planning Updated by [id number]: Chacho Mackey on 11/05/19 11:[address] Patient Name: NOIR JAY Encounter No: [id number] : 1940 Primary Insurance: MEDICARE A & B Anticipated DC Date: 10-29-2019 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 CM MET WITH PT AND STEP DAUGHTER IN ROOM. NORI JAY provided verbal consent to discuss current and ongoing needs with/in the presence of: STEP DAUGHTER. CM DISCUSSED LTACH REFERRAL AND LTACH AVAILABILITIY. PT TEARFUL AND WAS HOPING SHE WOULD BE HOME FOR IONIA. CM EXPLAINED TO PT THAT DR. ARORA FEELS PT WILL REQUIRE THREE WEEKS OF HOSPITALIZATION. PT STATES THAT THE DOCTOR IS "FULL OF SHIT". CM EXPLAINED THAT PT HAS BEEN VERY ILL AND THAT IT WOULD TAKE SOME TIME TO RECUPERATE AND GET PT'S OXYGEN NEEDS TO A LEVEL THAT CAN BE PROVIDED AT HOME FOR PT TO ACTUALLY GO HOME. PT REPORTS UNDERSTANDING, PT IN AGREEMENT WITH REFERRAL TO LTACH [facility]FERRAL TO [facility] [place]. IMPORTANT MESSAGE FROM MEDICARE PROVIDED AND EXPLAINED. CM CALLED [facility] OF [facility], , LEFT DETAILED MESSAGE ASKING FOR ADMISSION DETERMINATION. CM FAXED REFERRAL TO [facility] [place] AT [phone]. CM WAITING ADMISSION DETERMINATION FROM [facility]. Chacho Mackey , CASE MANAGEMENT DCP- Discharge Planning Updated by [id number]: Petra Durán on 10/27/19 2:[address] DC PLAN: Return home independently with her significant other. ANTICIPATED DC NEEDS: Denied known dc needs. CM met with patient to complete initial dc planning assessment. CM educated patient on the CM role and verbal consent given by patient to complete assessment. CM verified patient's address, phone number, and emergency contact phone numbers. Patient lives at home independently with her significant other. At discharge patient plans to return home and feels this is a safe discharge. CM discussed availability of home health, rehab services, and medical equipment. Patient denied known discharge needs at this time. Transportation provider at discharge will be Alfonzo. CM will continue to follow and will assist as needed with dc plans/needs. Petra Durán RN, [facility] DCPIA - Discharge Planning Initial Assessment Updated by [id number]: Petra Durán on 10/27/19 3:44 pm * Is the patient Alert and Oriented? Yes * How many steps to enter\\exit or inside your home? None * PCP Dr. Bethea * Pharmacy [facility] [address] [place] [address] * Preadmission Environment Home with Family * ADLs Independent * Equipment Cane Nebulizer Oxygen * Other Equipment Home oxygen with portability. Chris is DME provider. * List name and contact numbers for known caregivers / representatives who currently or will assist patient after discharge: Alfonzo Bletran - [facility] other - [phone] * Verbal permission to speak to the caregivers and representatives has been obtained from the patient. Yes * Community resources currently utilized None * Additional services required to return to the preadmission environment? No * Can the patient safely return to the preadmission environment? Yes * Has this patient been hospitalized within the prior 30 days at any hospital? No Coverage Notice Reviewer: [id number] - Chacho Mackey Notice Issued Date-Time: 11/05/2019 11:35 Notice Type: IM Discharge Notice Notice Delivered To: Patient Relationship to Patient: Stem Setter Name: Delivery Method: HAND - Hand Delivered Monalisa Days: Prior Verbal Notification: Recipient Understood Notice: Yes Recipient Signature: Yes Med Rec Note Co-signed by Attending: Coverage Notice Comment: Last DP export: 12/17/19 11:25 Patient Name: NORI JAY Page 26725 at 1250 All edits/amendments must be made on the electronic document DICTATION DATE: 11/05/191248 ENGINEER OPERATIONS AND MAINTENANCE: RUPAL 11/05/191248 RPT#: [id number] DC DATE: STATUS: ADM IN [facility] [address] [place] [address] END OF REPORT
[2019-11-05 14:12] VITALS: BP 131/74
--- NOTE | 2019-11-05 14:30 | NUR ---
PT PLACED BACK ON BIPAP PER REQUEST. STATED SHE FEELS A LITTLE SOB.
--- NOTE | 2019-11-05 16:44 | MORECARE ---
CASE MANAGEMENT DISCHARGE SUMMARY PATIENT: NORI JAY UNIT: [id number] ADM DATE: 10/27/19 AGE: 79 : 38 SEX: F ROOM/BED: D.8047 AUTHOR: SEBASTIAN,DOC PHYSICIAN: REFERRING PHYSICIAN: JACOBO ARORA MD DATE OF SERVICE: 11/05/19 Discharge Plan Patient Name: NORI JAY Facility: [facility]:[place] : 1940 Planned Disposition: Care Home Acute Care Facility Anticipated Discharge Date: 10/29/19 Discharge Date: Expected LOS: 2 Initial Reviewer: [email or web address] Initial Review Date: 11/06/2019 Generated: 11/05/19 5:44 pm Comments DCP- Discharge Planning Updated by [email or web address]: Chacho Mackey on 11/05/19 11:[address] Patient Name: NORI JAY Encounter No: [id number] : 1940 Primary Insurance: MEDICARE A & B Anticipated DC Date: 10-29-2019 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 CM MET WITH PT AND STEP DAUGHTER IN ROOM. NORI JAY provided verbal consent to discuss current and ongoing needs with/in the presence of: STEP DAUGHTER. CM DISCUSSED LTACH REFERRAL AND LTACH AVAILABILITIY. PT TEARFUL AND WAS HOPING SHE WOULD BE HOME FOR CASHION. CM EXPLAINED TO PT THAT DR. ARORA FEELS PT WILL REQUIRE THREE WEEKS OF HOSPITALIZATION. PT STATES THAT THE DOCTOR IS "FULL OF SHIT". CM EXPLAINED THAT PT HAS BEEN VERY ILL AND THAT IT WOULD TAKE SOME TIME TO RECUPERATE AND GET PT'S OXYGEN NEEDS TO A LEVEL THAT CAN BE PROVIDED AT HOME FOR PT TO ACTUALLY GO HOME. PT REPORTS UNDERSTANDING, PT IN AGREEMENT WITH REFERRAL TO LTACH [facility]FERRAL TO [facility] IN [place]. IMPORTANT MESSAGE FROM MEDICARE PROVIDED AND EXPLAINED. CM CALLED [facility] OF [facility], , LEFT DETAILED MESSAGE ASKING FOR ADMISSION DETERMINATION. CM FAXED REFERRAL TO [facility] [place] AT [phone]. CM WAITING ADMISSION DETERMINATION FROM [facility]. Chacho aMckey , CASE MANAGEMENT DCP- Discharge Planning Updated by [email or web address]: Petra Durán on 10/27/19 2:[address] DC PLAN: Return home independently with her significant other. ANTICIPATED DC NEEDS: Denied known dc needs. CM met with patient to complete initial dc planning assessment. CM educated patient on the CM role and verbal consent given by patient to complete assessment. CM verified patient's address, phone number, and emergency contact phone numbers. Patient lives at home independently with her significant other. At discharge patient plans to return home and feels this is a safe discharge. CM discussed availability of home health, rehab services, and medical equipment. Patient denied known discharge needs at this time. Transportation provider at discharge will be Alfonzo. CM will continue to follow and will assist as needed with dc plans/needs. Petra Durán RN, [facility] DCPIA - Discharge Planning Initial Assessment Updated by [email or web address]: Chacho Mackey on 11/05/19 4:37 pm * Is the patient Alert and Oriented? Yes * How many steps to enter\\exit or inside your home? None * PCP Dr. Bethea * Pharmacy [facility] [address] [place] [address] * Preadmission Environment Home with Family * ADLs Independent * Equipment Cane Nebulizer Oxygen * Other Equipment Home oxygen with portability. Chris is DME provider. * List name and contact numbers for known caregivers / representatives who currently or will assist patient after discharge: Alfonzo Beltran - [facility] other - [phone] WIL JAY, SON, HILARIO JAY, SON, * Verbal permission to speak to the caregivers and representatives has been obtained from the patient. Yes * Community resources currently utilized None * Additional services required to return to the preadmission environment? No * Can the patient safely return to the preadmission environment? Yes * Has this patient been hospitalized within the prior 30 days at any hospital? No Coverage Notice Reviewer: [id number] Jovani Mackey Notice Issued Date-Time: 11/05/2019 11:35 Notice Type: IM Discharge Notice Notice Delivered To: Patient Relationship to Patient: Account Development Manager Name: Delivery Method: HAND - Hand Delivered Monalisa Days: Prior Verbal Notification: Recipient Understood Notice: Yes Recipient Signature: Yes Med Rec Note Co-signed by Attending: Coverage Notice Comment: Last DP export: 11/05/19 11:50 Patient Name: NORI JAY Page [phone] at 1644 All edits/amendments must be made on the electronic document DICTATION DATE: 11/05/191643 LEI MAKER: RUPAL 11/05/191643 RPT#: [id number] DC DATE: STATUS: ADM IN [facility] [address] [place] [address] END OF REPORT
--- NOTE | 2019-11-05 18:07 | NUR ---
OT NOTE: PT COMPLETED BED MOB TASKS WITH CGA. PT COMPLETED HYGIENE TASKS WITH LAY Mathias. THANK YOU,JOVITA NGUYỄN
[2019-11-05 19:00] VITALS: BP 147/58
[2019-11-05 20:00] VITALS: BP 147/91
--- NOTE | 2019-11-05 22:01 | NUR ---
PATIENT SITTING UP IN BED WITH BIPAP ON. IV L UPPER ARM SL. PATIENT HAS BRUISES ON HER R LOWER ARM. PATIENT STATES THAT SHE IS NOT IN PAIN AT THE TIME. PATIENT HAS REDNESS/ SCAN TO COCCIX. PATIENT DENIES ANY NEEDS AT THIS TIME. BED RAILS X2. CALL LIGHT AND BEDSIDE TABLE WITHIN REACH.
[2019-11-06 01:21] VITALS: BP 148/76
[2019-11-06 04:00] VITALS: BP 100/56; BP 142/79
[2019-11-06 04:40] LABS: BASOPHILS 0 % (0-2); EOSINOPHILS 0 % (0-7); HEMATOCRIT 36.8 % (36.0-48.0); HEMOGLOBIN 11.7 g/dL (12-16); IMMATURE GRANULOCYTES 1.1 % (0-5); LYMPHOCYTES 5.4 % (15-50); MCH 27.5 pg (26.0-34.0); MCHC 31.8 g/dL (31.0-37.0); MCV 86.6 fL (80.0-100.0); MEAN PLATELET VOLUME 9.9 fL (7.4-10.4); MONOCYTES 5.9 % (2-11); NEUTROPHILS 87.6 % (40-80); PLATELET COUNT 202 10x3/uL (130-400); RBC 4.25 10x6/uL (4.00-5.40); RDW 15.6 % (11.5-14.5)
[2019-11-06 05:03] LABS: ALBUMIN 2.4 g/dL (3.4-5.0); BILIRUBIN - TOTAL 0.37 mg/dL (0.2-1.3); CALCIUM 8.6 mg/dL (8.5-10.1); CARBON DIOXIDE 34.1 mmol/L (21.0-32.0); CREATININE - SERUM 0.8 mg/dL (0.6-1.3); POTASSIUM - SERUM 4.1 mmol/L (3.5-5.1); PROTEIN - SERUM 5.5 g/dL (6.4-8.2)
[2019-11-06 05:22] LABS: INR 1.67 (0.85-1.17)
--- NOTE | 2019-11-06 05:27 | NUR ---
PT RECEIVED LAYING IN BED AWAKE WITH BIPAP MASK ON. UPDATED BOARD AND PLAN FOR THE DAY. CALL LIGHT CLOSE.
[2019-11-06 07:59] VITALS: BP 141/65
[2019-11-06 11:23] VITALS: BP 148/65
--- NOTE | 2019-11-06 11:51 | MORECARE ---
CASE MANAGEMENT DISCHARGE SUMMARY PATIENT: NORI JAY UNIT: [id number] ADM DATE: 10/27/19 AGE: 79 : 38 SEX: F ROOM/BED: D.2104 AUTHOR: SEBASTIANDOC PHYSICIAN: REFERRING PHYSICIAN: JACOBO ARORA MD DATE OF SERVICE: 11/06/19 Discharge Plan Patient Name: NORI JAY Facility: [facility]:[place] : 1940 Planned Disposition: Senior Living Acute Care Facility Anticipated Discharge Date: 10/29/19 Discharge Date: Expected LOS: 2 Initial Reviewer: [email or web address] Initial Review Date: 11/06/2019 Generated: 11/06/19 12:51 pm Comments DCP- Discharge Planning Updated by [email or web address]: Chacho Mackey on 11/06/19 10:[address] Patient Name: NORI JAY Encounter No: [id number] : 1940 Primary Insurance: MEDICARE A & B Anticipated DC Date: 10-29-2019 Planned Disposition: Tours Captain Acute Care Facility External Planned Provider: [facility] [place] DCP follow-up note: CM FAXED REFERRAL [place] TO [facility] AT [phone]. CM WAITING ADMISSION DETERMINATION FROM [facility]. LARRY Singer DCP- Discharge Planning Updated by [id number]: Chacho Mackey on 11/05/19 11:[address] Patient Name: NORI JAY Encounter No: [id number] : 1940 Primary Insurance: MEDICARE A & B Anticipated DC Date: 10-29-2019 Planned Disposition: Tours Captain Acute Care Facility External Planned Provider: [facility] [place] DCP follow-up note: CM RECEIVED ORDER FOR LTACH REFERRAL. CM MET WITH PT AND STEP DAUGHTER IN ROOM. NORI JAY provided verbal consent to discuss current and ongoing needs with/in the presence of: STEP DAUGHTER. CM DISCUSSED LTACH REFERRAL AND LTACH AVAILABILITIY. PT TEARFUL AND WAS HOPING SHE WOULD BE HOME FOR INVERNESS. CM EXPLAINED TO PT THAT DR. ARORA FEELS PT WILL REQUIRE THREE WEEKS OF HOSPITALIZATION. PT STATES THAT THE DOCTOR IS "FULL OF SHIT". CM EXPLAINED THAT PT HAS BEEN VERY ILL AND THAT IT WOULD TAKE SOME TIME TO RECUPERATE AND GET PT'S OXYGEN NEEDS TO A LEVEL THAT CAN BE PROVIDED AT HOME FOR PT TO ACTUALLY GO HOME. PT REPORTS UNDERSTANDING, PT IN AGREEMENT WITH REFERRAL TO LTACH [facility]FERRAL TO [facility] [place]. IMPORTANT MESSAGE FROM MEDICARE PROVIDED AND EXPLAINED. CM [facility], , LEFT DETAILED MESSAGE ASKING FOR ADMISSION DETERMINATION. CM FAXED REFERRAL TO [facility] AT [phone]. CM WAITING ADMISSION DETERMINATION FROM [facility]. Chacho Mackey , CASE MANAGEMENT DCP- Discharge Planning Updated by [id number]: Petra Durán on 10/27/19 2:[address] DC PLAN: Return home independently with her significant other. ANTICIPATED DC NEEDS: Denied known dc needs. CM met with patient to complete initial dc planning assessment. CM educated patient on the CM role and verbal consent given by patient to complete assessment. CM verified patient's address, phone number, and emergency contact phone numbers. Patient lives at home independently with her significant other. At discharge patient plans to return home and feels this is a safe discharge. CM discussed availability of home health, rehab services, and medical equipment. Patient denied known discharge needs at this time. Transportation provider at discharge will be Alfonzo. CM will continue to follow and will assist as needed with dc plans/needs. Petra Durán RN, [facility] DCPIA - Discharge Planning Initial Assessment Updated by [email or web address]: Chacho Mackey on 11/05/19 4:37 pm * Is the patient Alert and Oriented? Yes * How many steps to enter\\exit or inside your home? None * PCP Dr. Bethea * Pharmacy [facility] [address] [place] [phone] * Preadmission Environment Home with Family * ADLs Independent * Equipment Cane Nebulizer Oxygen * Other Equipment Home oxygen with portability. Chris is DME provider. * List name and contact numbers for known caregivers / representatives who currently or will assist patient after discharge: Alfonzo Beltran - [facility] - [phone] WIL JAY, SON, HILARIO JAY, SON, * Verbal permission to speak to the caregivers and representatives has been obtained from the patient. Yes * Community resources currently utilized None * Additional services required to return to the preadmission environment? No * Can the patient safely return to the preadmission environment? Yes * Has this patient been hospitalized within the prior 30 days at any hospital? No Coverage Notice Reviewer: [id number] Jovani Mackey Notice Issued Date-Time: 11/05/2019 11:35 Notice Type: IM Discharge Notice Notice Delivered To: Patient Relationship to Patient: Shop Repairer Name: Delivery Method: HAND - Hand Delivered Monalisa Days: Prior Verbal Notification: Recipient Understood Notice: Yes Recipient Signature: Yes Med Rec Note Co-signed by Attending: Coverage Notice Comment: Last DP export: 11/05/19 3:44 Patient Name: NORI JAY Page [phone] at 1151 All edits/amendments must be made on the electronic document DICTATION DATE: 11/06/19 1151 OCEAN LIFEGUARD: RUPAL 11/06/19 1151 RPT#: [id number] DC DATE: STATUS: ADM IN [facility] [address] [place] [address] END OF REPORT
--- NOTE | 2019-11-06 12:25 | NUR ---
Nutrition Consult/Follow-up: Not eating very much. Pt states "you can't eat if you're not hungry". Denies N/V. Prefers Boost to Ensure. Diet: Cardiac, Mech Soft with Gravy, Ensure TID PO intake: 0-25% Wt: 142.1# (145.5# on 10/28) Last BM: 11/04 (diarrhea) Labs noted: Glu 135, Alb 2.4 Meds reviewed -Ensure changed to Boost per pt request -Rec appetite stimulant -Monitor wt -RD following
--- NOTE | 2019-11-06 13:28 | NUR ---
OT NOTE: PERFORMED BED MOB WITH MIN ASSIST; EOB SITTING WITH GOOD BALANCE; SIMPLE GROOMING WITH SET UP; FEEDING WITH SET UP; FUNCTIONAL TRANSFERS TO AND FROM BED TO CHAIR WITH WALKER AND MIN ASSIST. PT REMAINS WEAK AND SOB WITH MINIMAL EXERTION, HOWEVER, IMPROVING DAILY AND WOULD BENEFIT FROM IP REHAB. MIRIAM STEPHENS, OTR/L
[2019-11-06 15:47] VITALS: BP 153/75
--- NOTE | 2019-11-06 15:49 | NUR ---
PHILLIPS REMOVED PER PROTOCOL. PT ABLE TO GET TO BATHROOM WITH ASSIST. EXPLAINED REASON FOR REMOVAL. FAMILY IN ROOM WITH UPDATE.
--- NOTE | 2019-11-06 16:18 | NUR ---
Blanchable redness noted just above coccyx region with a scaly area that was possibly an ulcer at some point, but is now healed. Zinc paste is being used on the area. Pt is now up to bathroom, as f/c has been removed. And is also up to chair.
--- NOTE | 2019-11-06 19:30 | NUR ---
EVENING ROUNDS COMPLETE, PT LAYING IN BED, NO SIGNS OF DISTRESS. PT DENIES ANY PAIN OR NEEDS AT THIS TIME. CL IN REACH, BED IN LOWEST POSITION.
[2019-11-06 20:00] VITALS: BP 152/67
--- NOTE | 2019-11-06 23:10 | NUR ---
PT C/O NOT VOIDING SINCE REMOVAL OF PHILILPS. BLADDER SCAN COMPLETE WITH 200ML HOLDING. HALLIE THACKER APN PAGED AT THIS TIME. THIS NURSE WAS TOLD TO WATCH PT'S OUTPUT AND TO BLADDER SCAN WHEN IT IS TIME FOR I&O'S AND CALL WITH ANY UPDATES.
[2019-11-07 01:08] VITALS: BP 149/76
--- NOTE | 2019-11-07 04:03 | NUR ---
PT VOIDED 25CC AT THIS TIME ON THE BSC. PT STILL RETAINING 290CC ACCORDING TO BLADDER SCANNER.
[2019-11-07 05:24] LABS: BASOPHILS 0 % (0-2); EOSINOPHILS 0 % (0-7); HEMATOCRIT 39.4 % (36.0-48.0); HEMOGLOBIN 12.3 g/dL (12-16); IMMATURE GRANULOCYTES 1.4 % (0-5); LYMPHOCYTES 4.1 % (15-50); MCH 27.3 pg (26.0-34.0); MCHC 31.2 g/dL (31.0-37.0); MCV 87.6 fL (80.0-100.0); MEAN PLATELET VOLUME 10.2 fL (7.4-10.4); MONOCYTES 5.1 % (2-11); NEUTROPHILS 89.4 % (40-80); PLATELET COUNT 223 10x3/uL (130-400); RDW 15.8 % (11.5-14.5); WBC 8.5 10x3/uL (4.8-10.8)
[2019-11-07 05:31] LABS: INR 1.72 (0.85-1.17); PROTIME 19.5 SECONDS (11.6-15.0)
[2019-11-07 05:32] VITALS: BP 151/79
[2019-11-07 05:33] LABS: ALBUMIN 2.7 g/dL (3.4-5.0); ANION GAP 6.2 mmol/L (8-16); BILIRUBIN - TOTAL 0.43 mg/dL (0.2-1.3); CALCIUM 8.7 mg/dL (8.5-10.1); CARBON DIOXIDE 35.9 mmol/L (21.0-32.0); CREATININE - SERUM 0.8 mg/dL (0.6-1.3); POTASSIUM - SERUM 4.1 mmol/L (3.5-5.1); PROTEIN - SERUM 6.2 g/dL (6.4-8.2)
--- NOTE | 2019-11-07 07:17 | NUR ---
PT RECEIVED LYING IN BED, AWAKE AND ALERT WEARING BIPAP AT PRESENT. RT IN ROOM FOR TREATMENT AND WILL PLACE ON VAPOTHERM AFTER.
--- NOTE | 2019-11-07 08:36 | MORECARE ---
CASE MANAGEMENT DISCHARGE SUMMARY PATIENT: NORI JAY UNIT: [id number] ADM DATE: 10/27/19 AGE: 79 : 38 SEX: F ROOM/BED: D.2104 AUTHOR: SEBASTIAN,DOC PHYSICIAN: REFERRING PHYSICIAN: JACOBO ARORA MD DATE OF SERVICE: 11/07/19 Discharge Plan Patient Name: NORI JAY Facility: [facility]:[place] : 1940 Planned Disposition: Retirement Acute Care Facility Anticipated Discharge Date: 10/29/19 Discharge Date: Expected LOS: 2 Initial Reviewer: [id number] Initial Review Date: 11/06/2019 Generated: 11/07/19 9:35 am Comments DCP- Discharge Planning Updated by [email or web address]: Chacho Mackey on 11/07/19 7:[address] Patient Name: NORI JAY Encounter No: [id number] : 1940 Primary Insurance: MEDICARE A & B Anticipated DC Date: 10-29-2019 Planned Disposition: Retirement Acute Care Facility External Planned Provider: [facility] DCP follow-up note: CM FAXED REFERRAL UDPATE TO [facility] AT [phone]. CM WAITING ADMISSION DETERMINATION FROM [facility]. LARRY Singer DCP- Discharge Planning Updated by [id number]: Chacho Mackey on 11/06/19 10:[address] Patient Name: NORI JAY Encounter No: [id number] : 1940 Primary Insurance: MEDICARE A & B Anticipated DC Date: 10-29-2019 Planned Disposition: [place] [facility] Acute Care Facility External Planned Provider: [facility] DCP follow-up note: CM FAXED REFERRAL UDPATE TO [facility] AT [phone]. CM WAITING ADMISSION DETERMINATION FROM [facility]. LARRY Singer DCP- Discharge Planning Updated by [email or web address]: Chacho Mackey on 11/05/19 11:[address] Patient Name: NORI JAY Encounter No: [id number] : 1940 Primary Insurance: MEDICARE A & B Anticipated DC Date: 10-29-2019 Planned Disposition: Retirement Acute Care Facility External Planned Provider: [facility] DCP follow-up note: CM RECEIVED ORDER FOR LTACH REFERRAL. CM MET WITH PT AND STEP DAUGHTER IN ROOM. NORI JAY provided verbal consent to discuss current and ongoing needs with/in the presence of: STEP DAUGHTER. CM DISCUSSED LTACH REFERRAL AND LTACH AVAILABILITIY. PT TEARFUL AND WAS HOPING SHE WOULD BE HOME FOR [place]. CM EXPLAINED TO PT THAT DR. ARORA FEELS PT WILL REQUIRE THREE WEEKS OF HOSPITALIZATION. PT STATES THAT THE DOCTOR IS "FULL OF SHIT". CM EXPLAINED THAT PT HAS BEEN VERY ILL AND THAT IT WOULD TAKE SOME TIME TO RECUPERATE AND GET PT'S OXYGEN NEEDS TO A LEVEL THAT CAN BE PROVIDED AT HOME FOR PT TO ACTUALLY GO HOME. PT REPORTS UNDERSTANDING, PT IN AGREEMENT WITH REFERRAL TO LTACH REFERRAL TO [facility] [place]. IMPORTANT MESSAGE FROM MEDICARE PROVIDED AND EXPLAINED. CM CALLED [facility] OF [facility], , LEFT DETAILED MESSAGE ASKING FOR ADMISSION DETERMINATION. CM FAXED REFERRAL TO [facility] [place] AT [phone]. CM WAITING ADMISSION DETERMINATION FROM [facility], [place]. Chacho Mackey , CASE MANAGEMENT DCP- Discharge Planning Updated by [email or web address]: Petra Durán on 10/27/19 2:[address] DC PLAN: Return home independently with her significant other. ANTICIPATED DC NEEDS: Denied known dc needs. CM met with patient to complete initial dc planning assessment. CM educated patient on the CM role and verbal consent given by patient to complete assessment. CM verified patient's address, phone number, and emergency contact phone numbers. Patient lives at home independently with her significant other. At discharge patient plans to return home and feels this is a safe discharge. CM discussed availability of home health, rehab services, and medical equipment. Patient denied known discharge needs at this time. Transportation provider at discharge will be Alfonzo. CM will continue to follow and will assist as needed with dc plans/needs. Petra Durán RN, [facility] DCPIA - Discharge Planning Initial Assessment Updated by [email or web address]: Chacho Mackey on 11/05/19 4:37 pm * Is the patient Alert and Oriented? Yes * How many steps to enter\\exit or inside your home? None * PCP Dr. Bethea * Pharmacy [facility] [address] [place] [phone] * Preadmission Environment Home with Family * ADLs Independent * Equipment Cane Nebulizer Oxygen * Other Equipment Home oxygen with portability. Chris is DME provider. * List name and contact numbers for known caregivers / representatives who currently or will assist patient after discharge: Alfonzo Beltran - [facility] - [phone] WIL JAY, SON, HILARIO JAY, SON, * Verbal permission to speak to the caregivers and representatives has been obtained from the patient. Yes * Community resources currently utilized None * Additional services required to return to the preadmission environment? No * Can the patient safely return to the preadmission environment? Yes * Has this patient been hospitalized within the prior 30 days at any hospital? No Coverage Notice Reviewer: [id number] Jovani Mackey Notice Issued Date-Time: 11/05/2019 11:35 Notice Type: IM Discharge Notice Notice Delivered To: Patient Relationship to Patient: Pitch Gatherer Name: Delivery Method: HAND - Hand Delivered Monalisa Days: Prior Verbal Notification: Recipient Understood Notice: Yes Recipient Signature: Yes Med Rec Note Co-signed by Attending: Coverage Notice Comment: Reviewer: [id number] C Mackey Notice Issued Date-Time: 11/06/2019 12:55 Notice Type: Patient Choice Letter Notice Delivered To: Patient Relationship to Patient: Pitch Gatherer Name: Delivery Method: HAND - Hand Delivered Monalisa Days: Prior Verbal Notification: Recipient Understood Notice: Yes Recipient Signature: Yes Med Rec Note Co-signed by Attending: Coverage Notice Comment: TAL Carrasco DP export: 11/06/19 10:51 Patient Name: NORI JAY Page [phone] at 0836 All edits/amendments must be made on the electronic document DICTATION DATE: 11/07/19834 GENERAL ACTIVITIES THERAPIST: RUPAL 11/07/19834 RPT#: [id number] DC DATE: STATUS: ADM IN [facility] [address] [place] [address] END OF REPORT
[2019-11-07 10:39] VITALS: BP 145/69
--- NOTE | 2019-11-07 11:58 | MORECARE ---
CASE MANAGEMENT DISCHARGE SUMMARY PATIENT: NORI JAY UNIT: [id number] ADM DATE: 10/27/19 AGE: 79 : 38 SEX: F ROOM/BED: D.2104 AUTHOR: SEBASTIAN,DOC PHYSICIAN: REFERRING PHYSICIAN: JACOBO ARORA MD DATE OF SERVICE: 11/07/19 Discharge Plan Patient Name: NORI JAY Facility: [facility]:[place] : 1940 Planned Disposition: Fdc Acute Care Facility Anticipated Discharge Date: 11/08/19 Discharge Date: Expected LOS: 12 Initial Reviewer: [id number] Initial Review Date: 11/06/2019 Generated: 11/07/19 12:57 pm Comments DCP- Discharge Planning Updated by [email or web address]: Chacho Mackey on 11/07/19 7:[address] Patient Name: NORI JAY Encounter No: [id number] : 1940 Primary Insurance: MEDICARE A & B Anticipated DC Date: 10-29-2019 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 DCP follow-up note: CM FAXED REFERRAL UDPATE TO [facility] AT [phone]. CM WAITING ADMISSION DETERMINATION FROM [facility]. LARRY Singer DCP- Discharge Planning Updated by [email or web address]: Chacho Mackey on 11/06/19 10:[address] Patient Name: NORI JAY Encounter No: [id number] : 1940 Primary Insurance: MEDICARE A & B Anticipated DC Date: 10-29-2019 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 DCP follow-up note: CM FAXED REFERRAL UDPATE TO [facility] AT [phone]. CM WAITING ADMISSION DETERMINATION FROM [facility]. LARRY Singer DCP- Discharge Planning Updated by [id number]: Chacho Mackey on 11/05/19 11:[address] Patient Name: NORI JAY Encounter No: [id number] : 1940 Primary Insurance: MEDICARE A & B Anticipated DC Date: 10-29-2019 Planned Disposition: Corporate Staff Accountant Acute Care Facility External Planned Provider: [facility] [place] DCP follow-up note: CM RECEIVED ORDER FOR LTACH REFERRAL. CM MET WITH PT AND STEP DAUGHTER IN ROOM. NORI JAY provided verbal consent to discuss current and ongoing needs with/in the presence of: STEP DAUGHTER. CM DISCUSSED LTACH REFERRAL AND LTACH AVAILABILITIY. PT TEARFUL AND WAS HOPING SHE WOULD BE HOME FOR [place]. CM EXPLAINED TO PT THAT DR. ARORA FEELS PT WILL REQUIRE THREE WEEKS OF HOSPITALIZATION. PT STATES THAT THE DOCTOR IS "FULL OF SHIT". CM EXPLAINED THAT PT HAS BEEN VERY ILL AND THAT IT WOULD TAKE SOME TIME TO RECUPERATE AND GET PT'S OXYGEN NEEDS TO A LEVEL THAT CAN BE PROVIDED AT HOME FOR PT TO ACTUALLY GO HOME. PT REPORTS UNDERSTANDING, PT IN AGREEMENT WITH REFERRAL TO LTACH REFERRAL TO [facility] [place]. IMPORTANT MESSAGE FROM MEDICARE PROVIDED AND EXPLAINED. CM CALLED [facility] OF [facility], , LEFT DETAILED MESSAGE ASKING FOR ADMISSION DETERMINATION. CM [facility] [place] AT [phone]. CM WAITING ADMISSION DETERMINATION FROM [facility] [place]. Chacho Mackey , CASE MANAGEMENT DCP- Discharge Planning Updated by [email or web address]: Petra Durán on 10/27/19 2:[address] DC PLAN: Return home independently with her significant other. ANTICIPATED DC NEEDS: Denied known dc needs. CM met with patient to complete initial dc planning assessment. CM educated patient on the CM role and verbal consent given by patient to complete assessment. CM verified patient's address, phone number, and emergency contact phone numbers. Patient lives at home independently with her significant other. At discharge patient plans to return home and feels this is a safe discharge. CM discussed availability of home health, rehab services, and medical equipment. Patient denied known discharge needs at this time. Transportation provider at discharge will be Alfonzo. CM will continue to follow and will assist as needed with dc plans/needs. Petra Durán RN, [facility] DCPIA - Discharge Planning Initial Assessment Updated by [email or web address]: Chacho Mackey on 11/05/19 4:37 pm * Is the patient Alert and Oriented? Yes * How many steps to enter\\exit or inside your home? None * PCP Dr. Bethea * Pharmacy [facility] [address] [place] [phone] * Preadmission Environment Home with Family * ADLs Independent * Equipment Cane Nebulizer Oxygen * Other Equipment Home oxygen with portability. Chris is DME provider. * List name and contact numbers for known caregivers / representatives who currently or will assist patient after discharge: Alfonzo Beltran - [facility] - [phone] WIL JAY, SON, HILARIO JAY, SON, * Verbal permission to speak to the caregivers and representatives has been obtained from the patient. Yes * Community resources currently utilized None * Additional services required to return to the preadmission environment? No * Can the patient safely return to the preadmission environment? Yes * Has this patient been hospitalized within the prior 30 days at any hospital? No Coverage Notice Reviewer: [email or web address] Jovani Mackey Notice Issued Date-Time: 11/05/2019 11:35 Notice Type: IM Discharge Notice Notice Delivered To: Patient Relationship to Patient: Air And Hydronic Balancing Technician Name: Delivery Method: HAND - Hand Delivered Monalisa Days: Prior Verbal Notification: Recipient Understood Notice: Yes Recipient Signature: Yes Med Rec Note Co-signed by Attending: Coverage Notice Comment: Reviewer: [id number] C Mackey Notice Issued Date-Time: 11/06/2019 12:55 Notice Type: Patient Choice Letter Notice Delivered To: Patient Relationship to Patient: Air And Hydronic Balancing Technician Name: Delivery Method: HAND - Hand Delivered Monalisa Days: Prior Verbal Notification: Recipient Understood Notice: Yes Recipient Signature: Yes Med Rec Note Co-signed by Attending: Coverage Notice Comment: TAL Carrasco DP export: 11/07/19 7:36 Patient Name: NORI JAY Page [phone] at 1158 All edits/amendments must be made on the electronic document DICTATION DATE: 11/07/19 1157 FIRE ENGINE PUMP OPERATOR: RUPAL 11/07/19 1157 RPT#: [id number] DC DATE: [facility]US: [facility] [address] [place] [address] END OF REPORT
--- NOTE | 2019-11-07 12:05 | MORECARE ---
CASE MANAGEMENT DISCHARGE SUMMARY PATIENT: NORI JAY UNIT: [id number] ADM DATE: 10/27/19 AGE: 79 : 38 SEX: F ROOM/BED: D.7310 AUTHOR: SEBASTIAN,DOC PHYSICIAN: REFERRING PHYSICIAN: JACOBO ARORA MD DATE OF SERVICE: 11/07/19 Discharge Plan Patient Name: NORI JAY Facility: [facility]:[place] : 1940 Planned Disposition: Jail Acute Care Facility Anticipated Discharge Date: 11/08/19 Discharge Date: Expected LOS: 12 Initial Reviewer: [email or web address] Initial Review Date: 11/06/2019 Generated: 11/07/19 1:05 pm Comments DCP- Discharge Planning Updated by [id number]: Chacho Mackey on 11/07/19 10:[address] Patient Name: NORI JAY Encounter No: [id number] : 1940 Primary Insurance: MEDICARE A & B Anticipated DC Date: 11-08-2019 Planned Disposition: Jail Acute Care Facility External Planned Provider: [facility] DCP follow-up note: CM RECEIVED CALL FROM [facility] [place], THEY PLAN TO ACCEPT PT BUT DO NOT HAVE AVAILABLE BEDS AT THIS TIME. CM SPOKE TO PT IN ROOM, DISCUSSED [place] TE[facility]NIC[facility] ACUTE CARE FACILITIES [place] OF [place]. PT IS NOT WILLING TO BE PLACED IN ASSISTED ACUTE CARE [place] OF [place]. PT IS WILLING TO WAIT FOR LTACH BED AT [facility]. CM NOTIFIED CARE TEAM MEMBERS AT [facility] TEAM MEETING. CM WAITING AVAILABLE BED AT [facility] FOR ASSISTED ACUTE CARE. Chacho Mackey CASE ADA DCP- Discharge Planning Updated by [email or web address]: Chacho Mackey on 11/07/19 7:[address] Patient Name: NORI JAY Encounter No: [id number] : 1940 Primary Insurance: MEDICARE A & B Anticipated DC Date: 10-29-2019 Planned Disposition: Underwriting Specialist Acute Care Facility External Planned Provider: [facility] DCP follow-up note: CM FAXED REFERRAL UDPATE TO [facility] AT [phone]. CM WAITING ADMISSION DETERMINATION FROM [facility]. Chacho Mackey CASE MANAGEMENT DCP- Discharge Planning Updated by [id number]: Chacho Mackey on 11/06/19 10:[address] Patient Name: NORI JAY Encounter No: [id number] : 1940 Primary Insurance: MEDICARE A & B Anticipated DC Date: 10-29-2019 Planned Disposition: Jail Acute Care Facility External Planned Provider: [facility] [place] DCP follow-up note: CM FAXED REFERRAL UDPATE TO [facility] AT [phone]. CM WAITING ADMISSION DETERMINATION FROM [facility]. Chacho Mackey CASE ADA DCP- Discharge Planning Updated by [email or web address]: Chacho Mackey on 11/05/19 11:[address] Patient Name: NORI JAY Encounter No: [id number] : 1940 Primary Insurance: MEDICARE A & B Anticipated DC Date: 10-29-2019 Planned Disposition: Underwriting Specialist Acute Care Facility External Planned Provider: [facility] [place] DCP follow-up note: CM RECEIVED ORDER FOR LTACH REFERRAL. CM MET WITH PT AND STEP DAUGHTER IN ROOM. NORI JAY provided verbal consent to discuss current and ongoing needs with/in the presence of: STEP DAUGHTER. CM DISCUSSED LTACH REFERRAL AND LTACH AVAILABILITIY. PT TEARFUL AND WAS HOPING SHE WOULD BE HOME FOR [place]. CM EXPLAINED TO PT THAT DR. ARORA FEELS PT WILL REQUIRE THREE WEEKS OF HOSPITALIZATION. PT STATES THAT THE DOCTOR IS "FULL OF SHIT". CM EXPLAINED THAT PT HAS BEEN VERY ILL AND THAT IT WOULD TAKE SOME TIME TO RECUPERATE AND GET PT'S OXYGEN NEEDS TO A LEVEL THAT CAN BE PROVIDED AT HOME FOR PT TO ACTUALLY GO HOME. PT REPORTS UNDERSTANDING, PT IN AGREEMENT WITH REFERRAL TO LTACH [facility] [place]. IMPORTANT MESSAGE FROM MEDICARE PROVIDED AND EXPLAINED. CM CALLED [facility] OF [facility], , LEFT DETAILED MESSAGE ASKING FOR ADMISSION DETERMINATION. CM FAXED REFERRAL TO [facility] AT [phone]. CM WAITING ADMISSION DETERMINATION FROM [facility]. Chacho Mackey , CASE MANAGEMENT DCP- Discharge Planning Updated by [id number]: Petra Durán on 10/27/19 2:[address] DC PLAN: Return home independently with her significant other. ANTICIPATED DC NEEDS: Denied known dc needs. CM met with patient to complete initial dc planning assessment. CM educated patient on the CM role and verbal consent given by patient to complete assessment. CM verified patient's address, phone number, and emergency contact phone numbers. Patient lives at home independently with her significant other. At discharge patient plans to return home and feels this is a safe discharge. CM discussed availability of home health, rehab services, and medical equipment. Patient denied known discharge needs at this time. Transportation provider at discharge will be Alfonzo. CM will continue to follow and will assist as needed with dc plans/needs. Petra Durán RN, [facility] DCPIA - Discharge Planning Initial Assessment Updated by [id number]: Chacoh Mackey on 11/05/19 4:37 pm * Is the patient Alert and Oriented? Yes * How many steps to enter\\exit or inside your home? None * PCP Dr. Bethea * Pharmacy [facility] [address] [place] [phone] * Preadmission Environment Home with Family * ADLs Independent * Equipment Cane Nebulizer Oxygen * Other Equipment Home oxygen with portability. Chris is DME provider. * List name and contact numbers for known caregivers / representatives who currently or will assist patient after discharge: Alfonzo Beltran - [facility] - [phone] WIL JAY, SON, HILARIO JAY, SON, * Verbal permission to speak to the caregivers and representatives has been obtained from the patient. Yes * Community resources currently utilized None * Additional services required to return to the preadmission environment? No * Can the patient safely return to the preadmission environment? Yes * Has this patient been hospitalized within the prior 30 days at any hospital? No Coverage Notice Reviewer: [id number] Jovani Mackey Notice Issued Date-Time: 11/05/2019 11:35 Notice Type: IM Discharge Notice Notice Delivered To: Patient Relationship to Patient: Section Plotter Operator Name: Delivery Method: HAND - Hand Delivered Monalisa Days: Prior Verbal Notification: Recipient Understood Notice: Yes Recipient Signature: Yes Med Rec Note Co-signed by Attending: Coverage Notice Comment: Reviewer: [id number] Jovani Mackey Notice Issued Date-Time: 11/06/2019 12:55 Notice Type: Patient Choice Letter Notice Delivered To: Patient Relationship to Patient: Section Plotter Operator Name: Delivery Method: HAND - Hand Delivered Monalisa Days: Prior Verbal Notification: Recipient Understood Notice: Yes Recipient Signature: Yes Med Rec Note Co-signed by Attending: Coverage Notice Comment: TAL HERNANDEZ Last DP export: 11/07/19 10:58 Patient Name: NORI JAY Page [phone] at 1205 All edits/amendments must be made on the electronic document DICTATION DATE: 11/07/19 1205 MOTION PICTURE SET WORKER: RUPAL 11/07/19 1205 RPT#: [id number] DC DATE: STATUS: ADM IN [facility] [address] [place] [address] END OF REPORT
[2019-11-07 13:19] VITALS: BP 156/76
--- NOTE | 2019-11-07 15:03 | NUR ---
OT NOTE:11/06/19 PT COMPLETED BED MOB TASKS WITH MIN A. PT COMPLETED TRANSFERS WITH MIN A. PT COMPLETED BUE AROM AX. THANK YOU,JOVITA NGUYỄN
--- NOTE | 2019-11-07 15:32 | NUR ---
OT NOTE: PT SITTING UP ON EOB.. GOOD SITTING BALANCE. PERFORMED SIT TO STAND X 2 TRIALS.. 02 DROPPED TO 88 BUT QUICKLY INCREASED TO 92/93..BACK TO BED WITH MIN ASSIST; SUPINE TO SIT WITH MIN ASSIST. TRANSFER TO CHAIR WITH MIN ASSIST X 2. ABLE TO PERFORM BASIC UPPER BODY TASKS WHILE SITTING UP IN CHAIR WITH ITEMS PLACED ON BEDSIDE TRAY TABLE. Jaki GLEZ TR/L
[2019-11-07 18:10] VITALS: BP 126/63
[2019-11-07 21:28] VITALS: BP 105/59
[2019-11-08] VITALS: BP 141/74
--- NOTE | 2019-11-08 03:58 | NUR ---
PT O2 SAT REPORTED BY CRYSTALLIZER OPERATOR OF 83% WITH PT ON BIPAP. RESP THERAPY ASSISTED WITH ADMINISTERING BREATHING TREATMENT. EKG DONE AND COPY IN PAPER CHART. CONT PULSE OX ADDED TO PT L HAND. O2 SAT UP TO 93% ON BIPAP. PT IN HIGH FOWLERS POSITION AT THIS TIME.
[2019-11-08 04:00] VITALS: BP 123/64
--- NOTE | 2019-11-08 04:01 | NUR ---
THIS NURSE NOTICED THAT A LIVING WILL FOR PT WAS SCANNED INTO CHART, BUT NO DNR ORDER HAS BEEN SIGNED.
--- NOTE | 2019-11-08 04:50 | NUR ---
SPOKE WITH HALLIE THACKER APN ABOUT DNR NEEDING TO BE SIGNED. WILL HAVE DR. ARORA SIGN FIRST THING.
[2019-11-08 06:16] LABS: BASOPHILS 0.1 % (0-2); EOSINOPHILS 0 % (0-7); HEMATOCRIT 38.7 % (36.0-48.0); HEMOGLOBIN 12.1 g/dL (12-16); IMMATURE GRANULOCYTES 1.1 % (0-5); LYMPHOCYTES 6.4 % (15-50); MCH 27.4 pg (26.0-34.0); MCHC 31.3 g/dL (31.0-37.0); MCV 87.8 fL (80.0-100.0); MEAN PLATELET VOLUME 10.4 fL (7.4-10.4); MONOCYTES 6.3 % (2-11); NEUTROPHILS 86.1 % (40-80); PLATELET COUNT 211 10x3/uL (130-400); RBC 4.41 10x6/uL (4.00-5.40)
[2019-11-08 06:37] LABS: WBC 16.1 10x3/uL (4.8-10.8)
[2019-11-08 06:45] LABS: ALBUMIN 2.8 g/dL (3.4-5.0); ANION GAP 7.5 mmol/L (8-16); BILIRUBIN - TOTAL 0.42 mg/dL (0.2-1.3); CALCIUM 8.9 mg/dL (8.5-10.1); CREATININE - SERUM 0.8 mg/dL (0.6-1.3); POTASSIUM - SERUM 3.5 mmol/L (3.5-5.1); PROTEIN - SERUM 5.9 g/dL (6.4-8.2)
[2019-11-08 06:54] LABS: INR 2.35 (0.85-1.17)
--- NOTE | 2019-11-08 07:31 | NUR ---
OT NOTE: DOS 11/07/19 PT EXHIBITED SOB WITH ACTIVITIES. NURSING NOTIFIED. PT COMPLETED SUPINE TO SIT WITH MIN A. PT COMPLETED EOB SITTING ENDURANCE WITH SBA-CGA. PT COMPLETED SIMPLE HYGIENE TASKS AT EOB WITH MIN A. THANK YOU, JOVITA NGUYỄN
--- NOTE | 2019-11-08 07:34 | NUR ---
PT RECEIVED LAYING ON RIGHT SIDE IN BED, AWAKE AND ALERT. BIPAP IN PLACE, 100% OXYGEN SETTING. STABLE AT PRESENT BUT HAD ROUGH NIGHT WITH OXYGEN LEVEL DROPPING.
--- NOTE | 2019-11-08 08:36 | NUR ---
OT NOTE: HOLD SECONDARY TO RESPIRATORY ISSUES. MIRIAM STEPHENS,O TR/L
--- NOTE | 2019-11-08 08:48 | NUR ---
PT STARTED SHIFT ON BIPAP 100% OXYGEN, HR 104. RT SWITCHED HER TO VAPOTHERM 30 LITERS. SATS DROPPED TO 82% SO RT PLACED BACK ON PIPAP AND PULSE OX UP TO 90%. RASHID SALAS NOTIFIED AND DR ESPINOSA NOTIFIED, ORDERS RECEIVED.
[2019-11-08 13:21] VITALS: BP 148/86
[2019-11-08 17:19] VITALS: BP 124/61
--- NOTE | 2019-11-08 19:15 | NUR ---
REPORT RECEIVED. PT RR EVEN AND TACHYPENIC 26, ON 100% BIPAP. ASST PT WITH BEDPAN AND PTs SATS DROPED TO THE LOW 70S. PT A&O X4, FAMILY AT BEDSIDE. NO FURTHER NEEDS EXPRESSED AT THIS TIME. WILL CTM.
[2019-11-08 20:30] VITALS: BP 145/80
--- NOTE | 2019-11-08 20:30 | NUR ---
PTS IV TO LEFT UPPER ARM NOT FLUSHING, PT C/O PAIN TO TOUCH. NEW 22G IV STARTED TO LEFT WRIST. X2 ATTEMPT. NO FURTHER NEEDS EXPRESSED. GRANDDAUGHTER AT BEDSIDE. WILL CTM.
--- NOTE | 2019-11-09 03:41 | NUR ---
PTS FAMILY REFUSING PTS VITALS WHILE SHE IS ASLEEP. NO NEEDS EXPRESSED. CALL LIGHT IN REACH. WILL CTM.
[2019-11-09 05:07] LABS: BASOPHILS 0 % (0-2); EOSINOPHILS 0 % (0-7); HEMATOCRIT 38.9 % (36.0-48.0); HEMOGLOBIN 12.1 g/dL (12-16); IMMATURE GRANULOCYTES 0.7 % (0-5); LYMPHOCYTES 2.6 % (15-50); MCH 27.5 pg (26.0-34.0); MCHC 31.1 g/dL (31.0-37.0); MCV 88.4 fL (80.0-100.0); MEAN PLATELET VOLUME 10.3 fL (7.4-10.4); MONOCYTES 1.4 % (2-11); NEUTROPHILS 95.3 % (40-80); PLATELET COUNT 218 10x3/uL (130-400); RDW 16.1 % (11.5-14.5); WBC 12.8 10x3/uL (4.8-10.8)
[2019-11-09 05:16] LABS: ANION GAP 12.7 mmol/L (8-16); CALCIUM 8.8 mg/dL (8.5-10.1); CARBON DIOXIDE 29.7 mmol/L (21.0-32.0); CREATININE - SERUM 0.8 mg/dL (0.6-1.3)
[2019-11-09 05:22] LABS: POTASSIUM - SERUM 4.4 mmol/L (3.5-5.1)
[2019-11-09 05:30] LABS: INR 2.27 (0.85-1.17); PROTIME 24.4 SECONDS (11.6-15.0)
--- NOTE | 2019-11-09 07:28 | NUR ---
PT AWAKE AND ORIENTED. GRANDDAUGHTER AT BEDSIDE. PT HAS BIPAP ON AND IS REQUESTING TO HAVE IT OFF TO ATTEMPT TO EAT AND DRINK SOME COFFFE. PT VERBALIZES UNDERSTANDING THAT IF SHE BEGINS TO RAPIDLY DESAT SHE PREVIOUSLY HAS, SHE WILL HAVE TO GO BACK ON THE BIPAP. REQUESTING XANX BEFORE SHE ATTEMPTS TO DO ALL OF THIS. ALL QUESTIONS ANSWERED TO THE BEST OF MY ABILITY, CL IN REACH, SRX2.
[2019-11-09 08:06] VITALS: BP 170/79
--- NOTE | 2019-11-09 09:50 | NUR ---
PT AWAKE ALERT AND ORIENTED. HAS BEEN OFF BIPAP AND ON VAPOTHERM FOR ABOUT 1 HR AT THIS TIME. PT HAS BEEN SATTING 98-100% ON THE VAPOTHERM, CONFIRMED WITH RT THAT SHE CAN BE ON THE VAPOTHERM LONG SHE DOES NOT BEGAN TO DSAT, IF SHE DOES WE WILL PLACE HER BACK ON. PT VERBALIZES UNDERSTANDING. MULTIPLE FAMILY MEMBERS AT BEDSIDE, CLIN REACH, SRX2.
--- NOTE | 2019-11-09 11:06 | NUR ---
I have reviewed this patient and I concur with the Shift Assessment completed by the Licensed Practical Nurse today this shift.
[2019-11-09 11:33] VITALS: BP 129/65
--- NOTE | 2019-11-09 11:48 | NUR ---
EGG CRATE PLACED UNDER PT FOR COMFORT AND WOUND PREVENTION.
--- NOTE | 2019-11-09 12:30 | NUR ---
PT STILL SATTING WELL 97-100%, 96% WHEN ROLLING FOR BED CHANGES. FAMILY AT BEDSIDE,, NO COMPALITNS OR CONCERNS AT THIS TIME. CL IN REACH, SRX2.
[2019-11-09 15:31] VITALS: BP 135/69
--- NOTE | 2019-11-09 18:32 | NUR ---
PT AWAKE AND ORIENTED NO COMPLAINTS OR CONCERNS HAS TOLERATED WITH GOOD O2 ALL DAY WITHOUT BIPAP. WILL PLACE AGAIN FOR BEDTIME. MULTIPLE FAMILY MEMBERS AT BEDSIDE. CL IN REACH, SRX2.
--- NOTE | 2019-11-09 19:10 | NUR ---
REPORT RECEIVED. RR EVEN AND UNLABORED ON VAPOTHERM. FAMILY AT BEDSIDE. NO VOICED C/O OR CONCERNS NOTED. NO S/SX OF DISTRESS OBSERVED. CALL LIGHT IN REACH. WILL CTM.
[2019-11-09 20:30] VITALS: BP 159/70
[2019-11-10 05:14] LABS: BASOPHILS 0 % (0-2); EOSINOPHILS 0 % (0-7); HEMATOCRIT 36.1 % (36.0-48.0); IMMATURE GRANULOCYTES 0.4 % (0-5); LYMPHOCYTES 2.2 % (15-50); MCH 26.9 pg (26.0-34.0); MCHC 30.5 g/dL (31.0-37.0); MCV 88.3 fL (80.0-100.0); MEAN PLATELET VOLUME 10.3 fL (7.4-10.4); MONOCYTES 3.7 % (2-11); NEUTROPHILS 93.7 % (40-80); PLATELET COUNT 199 10x3/uL (130-400); RBC 4.09 10x6/uL (4.00-5.40); RDW 16.2 % (11.5-14.5); WBC 14.3 10x3/uL (4.8-10.8)
[2019-11-10 05:26] LABS: INR 4.18 (0.85-1.17); PROTIME 39.5 SECONDS (11.6-15.0)
[2019-11-10 05:34] LABS: ANION GAP 10.4 mmol/L (8-16); CARBON DIOXIDE 30.9 mmol/L (21.0-32.0); CREATININE - SERUM 0.8 mg/dL (0.6-1.3); POTASSIUM - SERUM 4.3 mmol/L (3.5-5.1)
--- NOTE | 2019-11-10 07:19 | NUR ---
PT AWAKE AND ORIENTED, NO COMPLAINTS OR CONCERNS THIS MRONING. TOLERATING VAPOTHERM WELL. GRANDDAUGHTER AT BEDISDE. ALL QUESTIONS ANSWERED TO THE BEST OF MY ABILITY. CL IN REACH, SRX2.
[2019-11-10 10:28] VITALS: BP 148/68
--- NOTE | 2019-11-10 10:50 | NUR ---
I have reviewed this patient and I concur with the Shift Assessment completed by the Licensed Practical Nurse today this shift.
[2019-11-10 14:02] VITALS: BP 129/59
--- NOTE | 2019-11-10 14:39 | NUR ---
OT NOTE: PT REQUIRED INCREASED ASSIST WITH FUNCTIONAL TRANSFER FROM CHAIR TO BED.. REQUIRED MIN ASSIST LAST WEEK, TODAY REQUIRED MAX ASSIST AND INCREASED DIFFICULTY MOVING LES.; TOLERATED SITTING UP IN CHAIR APPROX 2 HRS. MAX ASSIST BACK TO BED. MOD ASSIST WITH ROLLING SIDE TO SIDE. [phone] MIRIAM STEPHENS, OTR/L
[2019-11-10 17:10] VITALS: BP 142/64
--- NOTE | 2019-11-10 19:04 | NUR ---
ALERT AND OX4 AND DENIES SOB THERM IN PLACE AT 40 FAMILY PRESENT AT BS BED LOW AND LOCKED SRX2 AND CALL LIGHT WITH PT SHE DENIES NEEDS AT THIS TIME
[2019-11-10 20:29] VITALS: BP 130/60
[2019-11-11 00:30] VITALS: BP 139/74
--- NOTE | 2019-11-11 01:23 | NUR ---
I have reviewed this patient and I concur with the Shift Assessment completed by the Licensed Practical Nurse today this shift.
[2019-11-11 04:03] VITALS: BP 160/70
[2019-11-11 06:00] LABS: BASOPHILS 0 % (0-2); EOSINOPHILS 0 % (0-7); HEMATOCRIT 33.1 % (36.0-48.0); HEMOGLOBIN 10.5 g/dL (12-16); IMMATURE GRANULOCYTES 0.6 % (0-5); LYMPHOCYTES 2.3 % (15-50); MCH 27.9 pg (26.0-34.0); MCHC 31.7 g/dL (31.0-37.0); MCV 87.8 fL (80.0-100.0); MEAN PLATELET VOLUME 10.8 fL (7.4-10.4); MONOCYTES 4.6 % (2-11); NEUTROPHILS 92.5 % (40-80); PLATELET COUNT 192 10x3/uL (130-400); RBC 3.77 10x6/uL (4.00-5.40); RDW 16.2 % (11.5-14.5); WBC 14.2 10x3/uL (4.8-10.8)
[2019-11-11 06:17] LABS: INR 4.17 (0.85-1.17); PROTIME 39.4 SECONDS (11.6-15.0)
[2019-11-11 06:26] LABS: CALC OSMOLALITY 299 mosm/kg (275-300); CALCIUM 8.5 mg/dL (8.5-10.1); CARBON DIOXIDE 30.4 mmol/L (21.0-32.0); CHLORIDE - SERUM 110 mmol/L (98-107); CREATININE - SERUM 0.7 mg/dL (0.6-1.3); GLUCOSE 99 mg/dL (74-106); POTASSIUM - SERUM 4.3 mmol/L (3.5-5.1); SODIUM 146 mmol/L (136-145); UREA NITROGEN 39 mg/dL (7-18); eGFR NON AFRICAN AMERICAN 85 mL/min (90-120)
--- NOTE | 2019-11-11 07:13 | NUR ---
PT AWAKE AND ORIENTED WHEN I ENTERED. ON VAPOTHERM AND TOLERATING WELL AT THIS TIME. REQUESTS XANAX WHEN I BRING MORNING MEDICATIONS. MULTIPLE FAMILY MEMEBERS AT BEDSIDE. NO COMPLAINTS/CONCERNS, ALL QUESTIONS ANSWERED TO THE BEST OF MY ABILITY. CL IN REACH, SRX2.
[2019-11-11 08:40] VITALS: BP 152/68
--- NOTE | 2019-11-11 09:06 | NUR ---
PT AWAKE AND ORIENTED, NO COMPLAINTS/CONCERNS, STATES SHE'S FEELING BETTER THAN ANY PREVIOUS DAY AND IS THANKFUL FOR THE CARE SHES' RECIEVED. FAMILY AT BEDSIDE, CL IN REACH, SRX2.
--- NOTE | 2019-11-11 09:22 | NUR ---
FAMILY REQUESTS MULTIPLE TIMES I PLACE A WOUND CARE CONSULT FOR THE PTS BOTTOM. WILL DO, BUT I INFORMED FAMILY WE WERE ALREADY FOLLWING WHAT JAMES LOPEZ WOULD LIKELY SUGGEST. WILL ACCOMIDATE.
--- NOTE | 2019-11-11 10:40 | NUR ---
I CONCUR WITH THE RENTAL SALESPERSON ASSESSMENT OF THIS PATIENT.
--- NOTE | 2019-11-11 11:22 | NUR ---
Pt has a 1cm x 1cm stage 2 pressure injury on her right buttock. It is red with peeling skin. There is no drainage seen. Pt states it is "tender" It is being protected with mepilex dressing. Pt is on an egg crate mattress. Recommend changing over to an air overlay. Pt is alert and oriented. We discussed the importance of turning/repositioning while she is in bed. She voiced understanding. She is able to turn herself, but needs reminding to do so. She is not up walking as of yet, but is up to the chair with physical therapy. Wound care continues to monitor.
--- NOTE | 2019-11-11 12:40 | NUR ---
PT MOVED TO LARGER ROOM TO BETTER ACCOMIDATE NEEDS (3 LARGE MACHINES, AIR MATRESS, ECT.). TRANSFERED VIA WHEELCAHIR WITH ASSISTANCE FROM RT. PT TOLERATED NON REBREATHER WELL. CURRENTLY SITTING IN RECLINER FOR LUNCH. FAMILY AT [facility]. CL IN REACH, SRX2.
[2019-11-11 13:01] VITALS: BP 141/73
--- NOTE | 2019-11-11 13:06 | NUR ---
Nutrition Follow-up: Diet: Cardiac Mech Soft with gravy/thin liquids + Boost with meals PO intake: 0-25%; reports that her appetite is unchanged. States that she just doesn't eat much. States that she is able to drink ~2 cans Boost per day. Last BM: 11/07/19 x 4 days ago. WT: 142# (11/04/19); Admit wt: 131# (10/27/19)- patient with daily wts order Meds noted: solumedrol. Labs noted: Na 146. Noted pt with stage II PU to her R buttock. -Continue current nutrition regimen. -Will add Richard once daily for nutritionally aided wound healing. -Encourage PO intake. -Consider adding appetite stimulant as medically feasible. -Need new wt. -RD following.
[2019-11-11 17:27] VITALS: BP 145/62
--- NOTE | 2019-11-11 19:10 | NUR ---
REPORT RECEIVED, WILL CONTINUE POC. PATIENT IS AAOX4, UP WITH ASSIST. LYING IN SEMI-FOWLERS POSITION. NO S/S OF DISTRESS, RR EVEN AND UNLABORED ON VAPOTHERM 40% PIV TO LT AC, NO PATENT, REMOVED WITH CATH TIP INTACT. ATTEMPTED TO RESITE, UNSUCCESSFUL X2 ATTEMPTS. PATIENT DENIES FURTHER NEEDS. BED LOCKED AND LOWERED. WILL CTM. FAMILY AT BEDSIDE.
--- NOTE | 2019-11-11 19:15 | NUR ---
REPORT RECEIVED, WILL CONTINUE POC. PATIENT IS AAOX4, BEDFAST. NO S/S OF DISTRESS OBSERVED, RR EVEN AND UNLABORED ON 2L O2 VIA NC. F/C HANGING TO RT SIDE OF BED, PATENT, DRAINING CONCENTRATED URINE BY GRAVITY. PATIENT DENIES NEEDS AT THIS TIME. CL IN REACH, BED LOCKED AND LOWERED. WILL CTM.
[2019-11-11 20:00] VITALS: BP 134/60
--- NOTE | 2019-11-11 22:00 | NUR ---
CT CAME TO GET PATIENT BUT NEEDED IV ACCESS. HAD ANOTHER NURSE ATTEMPT IV, SUCCESSFUL X1 ATTEMPTS. NEW PIV TO RT FA. CT FLUSHED TO CHECK PATENCY THEN TOOK PATIENT TO CT.
[2019-11-12 00:09] VITALS: BP 117/78
--- NOTE | 2019-11-12 02:08 | NUR ---
I have reviewed this patient and I concur with the Shift Assessment completed by the Licensed Practical Nurse today this shift.
[2019-11-12 04:00] VITALS: BP 154/59
[2019-11-12 05:10] LABS: BASOPHILS 0 % (0-2); EOSINOPHILS 0.1 % (0-7); HEMATOCRIT 34.6 % (36.0-48.0); HEMOGLOBIN 10.8 g/dL (12-16); IMMATURE GRANULOCYTES 0.3 % (0-5); LYMPHOCYTES 1.8 % (15-50); MCH 27.1 pg (26.0-34.0); MCHC 31.2 g/dL (31.0-37.0); MCV 86.7 fL (80.0-100.0); MEAN PLATELET VOLUME 10.5 fL (7.4-10.4); MONOCYTES 2.8 % (2-11); PLATELET COUNT 182 10x3/uL (130-400); RBC 3.99 10x6/uL (4.00-5.40); RDW 16.1 % (11.5-14.5); WBC 11.6 10x3/uL (4.8-10.8)
[2019-11-12 05:38] LABS: CALC OSMOLALITY 297 mosm/kg (275-300); CALCIUM 8.7 mg/dL (8.5-10.1); CARBON DIOXIDE 30.5 mmol/L (21.0-32.0); CHLORIDE - SERUM 109 mmol/L (98-107); CREATININE - SERUM 0.7 mg/dL (0.6-1.3); GLUCOSE 117 mg/dL (74-106); POTASSIUM - SERUM 4.2 mmol/L (3.5-5.1); SODIUM 145 mmol/L (136-145); UREA NITROGEN 34 mg/dL (7-18); eGFR NON AFRICAN AMERICAN 85 mL/min (90-120)
[2019-11-12 05:41] LABS: INR 2.67 (0.85-1.17); PROTIME 27.7 SECONDS (11.6-15.0)
--- NOTE | 2019-11-12 07:05 | NUR ---
RECEIVED REPORT. ASSUMED CARE OF PATIENT. PATIENT ALERT/OREINTED, GRANDDAUGHTER AT BEDSIDE. PATIENT QUESTIONED THIS TRIMMING OPERATOR IF SHE WAS GOING TO HAVE TO HAVE ANOTHER IV TODAY, THEY BLOW EVERY DAY DUE TO THE AMOUNT OF ABX THAT SHE RECEIVES AND SHE HAS BEEN HERE SINCE 10/27/19. THIS TRIMMING OPERATOR ASKED THE FAMILY IF ANYONE HAD SPOKEN TO THEM REGARDING A MIDLINE, SPECIAL IV AND THEY SAID YES BUT NOBODY EVER CAME. ORDER IN CHART FROM 11/04 FOR VASCUALR ACCESS. WILL FOLLOW UP TO WHY THIS LINE WAS NOT PLACED. PATIENT IN NO DISTRESS.
--- NOTE | 2019-11-12 07:51 | NUR ---
FAMILY RESOURCE SPECIALIST CALLED ER FOR THIS HR CLERK VASCULAR ACCESS NURSE NOT ANSWERING EXT [phone]. ER IS UNAWARE OF ANYONE COMING IN TODAY TO PLACE LINES AND INFORMED THE ER THAT WE HAVE 2 PATIENTS NEEDING LINES. WAITING ON CALLBACK.
--- NOTE | 2019-11-12 09:06 | NUR ---
NEW ORDER OBTAINED FOR NYSTATIN SWISH AND SWALLOW.
[2019-11-12 09:19] VITALS: BP 147/60
--- NOTE | 2019-11-12 09:43 | NUR ---
20 GAUGE IV REMOVED FRO RIGHT WRIST AT IV HAS INFILTRATED. CATHETER TIP INTACT. NO BLEEDING FROM SITE. 2X2 GAUZE APPLIED AND SECURED WITH BANDAID.
--- NOTE | 2019-11-12 09:46 | NUR ---
INCENTIVE SPIROMETER PROVIDED TO PATIENT ORDERED. INSTRUCTIONS FOR USE PROVIDED TO PATIENT IN FRONT OF HER FAMILY. PATIENT VERBALIZES UNDERSTANDING OF USE OF DEVICE. PATIENT AT FIRST STATES SHE HAS TWO OF THOSE THINGS AT HOME, REFERRING TO I.S., AND SAYS YA I NEED TO BLOW INTO IT AND THIS NURSE ASKED HOW OFTEN SHE USES HER I.S. AT HOME AND PATIENT REPLIED NEVER, WHILE LAUGHING. PATIENT IS VERY RECEPTIVE TO TEACHINGS AND IS DOING ALL THAT IS ASKED OF HER. CALL LIGHT WITHIN REACH.
--- NOTE | 2019-11-12 10:26 | MORECARE ---
CASE MANAGEMENT DISCHARGE SUMMARY PATIENT: NORI JAY UNIT: [id number] ADM DATE: 10/27/19 AGE: 79 : 38 SEX: F ROOM/BED: D.2103 AUTHOR: SABI CORTES PHYSICIAN: REFERRING PHYSICIAN: JACOBO ARORA MD DATE OF SERVICE: 11/12/19 Discharge Plan Patient Name: NORI JAY Facility: [facility]:[place] : 1940 Planned Disposition: [facility] Acute Care Facility Anticipated Discharge Date: 11/08/19 Discharge Date: Expected LOS: 12 Initial Reviewer: [id number] Initial Review Date: 11/06/2019 Generated: 11/12/19 11:25 am Comments DCP- Discharge Planning Updated by [email or web address]: Chacho Mackey on 11/12/19 9:[address] Patient Name: NORI JAY Encounter No: [id number] : 1940 Primary Insurance: MEDICARE A & B Anticipated DC Date: 11-08-2019 Planned Disposition: [facility] Acute Care Facility External Planned Provider: [facility] DCP follow-up note: CM CALLED [facility] OF [facility], ; THEY DO NOT HAVE AVAILABLE BEDS AT THIS TIME AND HAVE POSSIBLE DISCHARGES LATER THIS WEEK. [facility] ADVISED TO FAX UPDATE ON 11-14-19. CM WAITING AVAILABLE BED AT [facility]. CM TO FAX UPDATE 11-14-19 TO [facility]. Chacho Mackey, CASE MANAGEMENT DCP- Discharge Planning Updated by [id number]: Chacho Mackey on 11/07/19 10:[address] Patient Name: NORI JAY Encounter No: [id number] : 1940 Primary Insurance: MEDICARE A & B Anticipated DC Date: 11-08-2019 Planned Disposition: [facility] Acute Care Facility External Planned Provider: [facility] DCP follow-up note: CM RECEIVED CALL FROM [facility], THEY PLAN TO ACCEPT PT BUT DO NOT HAVE AVAILABLE BEDS AT THIS TIME. CM SPOKE TO PT IN ROOM, DISCUSSED [facility] FACILITIES OUT[place] OF [place]. PT IS NOT WILLING TO BE PLACED IN [facility] [place] OF [place]. PT IS WILLING TO WAIT FOR LTACH BED AT [facility]. CM NOTIFIED CARE TEAM MEMBERS AT [facility] TEAM MEETING. CM WAITING AVAILABLE BED AT [facility] FOR [facility]. Chacho Mackey CASE MANAGEMENT DCP- Discharge Planning Updated by [email or web address]: Chacho Mackey on 11/07/19 7:[address] Patient Name: NORI Nettles PIERRE Encounter No: [id number] : 1940 Primary Insurance: MEDICARE A & B Anticipated DC Date: 10-29-2019 Planned Disposition: [facility] Acute Care Facility External Planned Provider: [facility] DCP follow-up note: CM FAXED REFERRAL UDPATE TO [facility] AT [phone]. CM WAITING ADMISSION DETERMINATION FROM [facility]. Chacho Mackey CASE ADA DCP- Discharge Planning Updated by [email or web address]: Chacho Mackey on 11/06/19 10:[address] Patient Name: NORI Nettles PIERRE Encounter No: [id number] : 1940 Primary Insurance: MEDICARE A & B Anticipated DC Date: 10-29-2019 Planned Disposition: [facility] Acute Care Facility External Planned Provider: [facility] DCP follow-up note: CM FAXED REFERRAL UDPATE TO [facility] AT [phone]. CM WAITING ADMISSION DETERMINATION FROM [facility]. Chacho Mackey CASE MANAGEMENT DCP- Discharge Planning Updated by [id number]: Chacho Mackey on 11/05/19 11:[address] Patient Name: NORI JAY Encounter No: [id number] : 1940 Primary Insurance: MEDICARE A & B Anticipated DC Date: 10-29-2019 Planned Disposition: [facility] Acute Care Facility External Planned Provider: [facility] DCP follow-up note: CM RECEIVED ORDER FOR LTACH REFERRAL. CM MET WITH PT AND STEP DAUGHTER IN ROOM. NORI JAY provided verbal consent to discuss current and ongoing needs with/in the presence of: STEP DAUGHTER. CM DISCUSSED LTACH REFERRAL AND LTACH AVAILABILITIY. PT TEARFUL AND WAS HOPING SHE WOULD BE HOME FOR [place]. CM EXPLAINED TO PT THAT DR. ARORA FEELS PT WILL REQUIRE THREE WEEKS OF HOSPITALIZATION. PT STATES THAT THE DOCTOR IS "FULL OF SHIT". CM EXPLAINED THAT PT HAS BEEN VERY ILL AND THAT IT WOULD TAKE SOME TIME TO RECUPERATE AND GET PT'S OXYGEN NEEDS TO A LEVEL THAT CAN BE PROVIDED AT HOME FOR PT TO ACTUALLY GO HOME. PT REPORTS UNDERSTANDING, PT IN AGREEMENT WITH REFERRAL TO LTACH REFERRAL TO [facility] [place]. IMPORTANT MESSAGE FROM MEDICARE PROVIDED AND EXPLAINED. CM CALLED [facility] OF [facility], , LEFT DETAILED MESSAGE ASKING FOR ADMISSION DETERMINATION. CM FAXED REFERRAL TO [facility] AT [phone]. CM WAITING ADMISSION DETERMINATION FROM [facility]. Chacho Mackey , CASE MANAGEMENT DCP- Discharge Planning Updated by [id number]: Petra Durán on 10/27/19 2:[address] DC PLAN: Return home independently with her significant other. ANTICIPATED DC NEEDS: Denied known dc needs. CM met with patient to complete initial dc planning assessment. CM educated patient on the CM role and verbal consent given by patient to complete assessment. CM verified patient's address, phone number, and emergency contact phone numbers. Patient lives at home independently with her significant other. At discharge patient plans to return home and feels this is a safe discharge. CM discussed availability of home health, rehab services, and medical equipment. Patient denied known discharge needs at this time. Transportation provider at discharge will be Alfonzo. CM will continue to follow and will assist as needed with dc plans/needs. Petra Durán RN, CCM DCPIA - Discharge Planning Initial Assessment Updated by [id number]: Chacho Mackey on 11/05/19 4:37 pm * Is the patient Alert and Oriented? Yes * How many steps to enter\\exit or inside your home? None * PCP Dr. Bethea * Pharmacy [facility] [address] [place] [phone] * Preadmission Environment Home with Family * ADLs Independent * Equipment Cane Nebulizer Oxygen * Other Equipment Home oxygen with portability. Chris is DME provider. * List name and contact numbers for known caregivers / representatives who currently or will assist patient after discharge: Alfonzo Ramaslin - [facility] - [phone] WIL JAY, SON, HILARIO JAY, SON, * Verbal permission to speak to the caregivers and representatives has been obtained from the patient. Yes * Community resources currently utilized None * Additional services required to return to the preadmission environment? No * Can the patient safely return to the preadmission environment? Yes * Has this patient been hospitalized within the prior 30 days at any hospital? No Coverage Notice Reviewer: SANDOVAL Mackey Notice Issued Date-Time: 11/05/2019 11:35 Notice Type: IM Discharge Notice Notice Delivered To: Patient Relationship to Patient: Carbon Brusher Assembler Name: Delivery Method: HAND - Hand Delivered Monalisa Days: Prior Verbal Notification: Recipient Understood Notice: Yes Recipient Signature: Yes Med Rec Note Co-signed by Attending: Coverage Notice Comment: Reviewer: SANDOVAL Mackey Notice Issued Date-Time: 11/06/2019 12:55 Notice Type: Patient Choice Letter Notice Delivered To: Patient Relationship to Patient: Carbon Brusher Assembler Name: Delivery Method: HAND - Hand Delivered Monalisa Days: Prior Verbal Notification: Recipient Understood Notice: Yes Recipient Signature: Yes Med Rec Note Co-signed by Attending: Coverage Notice Comment: TAL HERNANDEZ Last DP export: 11/07/19 11:05 Patient Name: NORI JAY Page [phone] at 1026 All edits/amendments must be made on the electronic document DICTATION DATE: 11/12/19 1025 ENGINEERING INSTRUCTOR: RUPAL 11/12/19 1025 RPT#: [id number] DC DATE: STATUS: ADM IN [facility] [address] [place] [address] END OF REPORT
[2019-11-12 12:13] VITALS: BP 128/61
--- NOTE | 2019-11-12 15:47 | MORECARE ---
CASE MANAGEMENT DISCHARGE SUMMARY PATIENT: NORI JAY UNIT: [id number] ADM DATE: 10/27/19 AGE: 79 : 38 SEX: F ROOM/BED: D.2105 AUTHOR: SABI CORTES PHYSICIAN: REFERRING PHYSICIAN: JACOBO ARORA MD DATE OF SERVICE: 11/12/19 Discharge Plan Patient Name: NORI JAY Facility: [facility]:[place] : 1940 Planned Disposition: Group Home Acute Care Facility Anticipated Discharge Date: 11/08/19 Discharge Date: Expected LOS: 12 Initial Reviewer: [id number] Initial Review Date: 11/06/2019 Generated: 11/12/19 4:47 pm Comments DCP- Discharge Planning Updated by [id number]: Chacho Mackey on 11/12/19 9:[address] Patient Name: NORI JAY Encounter No: [id number] : 1940 Primary Insurance: MEDICARE A & B Anticipated DC Date: 11-08-2019 Planned Disposition: Business Strategy Manager Acute Care Facility External Planned Provider: [facility] DCP follow-up note: CM CALLED [facility] OF [facility], ; THEY DO NOT HAVE AVAILABLE BEDS AT THIS TIME AND HAVE POSSIBLE DISCHARGES LATER THIS WEEK. [facility] ADVISED TO FAX UPDATE ON 11-14-19. CM WAITING AVAILABLE BED AT [facility]. CM TO FAX UPDATE 11-14-19 TO [facility]. Chacho Mackey, CASE MANAGEMENT DCP- Discharge Planning Updated by [id number]: Chacho Mackey on 11/07/19 10:[address] Patient Name: NORI JAY Encounter No: [id number] : 1940 Primary Insurance: MEDICARE A & B Anticipated DC Date: 11-08-2019 Planned Disposition: Group Home Acute Care Facility External Planned Provider: [facility] DCP follow-up note: CM RECEIVED CALL FROM [facility], THEY PLAN TO ACCEPT PT BUT DO NOT HAVE AVAILABLE BEDS AT THIS TIME. CM SPOKE TO PT IN ROOM, DISCUSSED [facility] AC[facility] C[facility] FACILITIES OUTSIDE OF [place]. PT IS NOT WILLING TO BE PLACED IN RECE[facility]ING [facility] C[facility] [place]. PT IS WILLING TO WAIT FOR LTACH BED AT [facility]. CM NOTIFIED CARE TEAM MEMBERS AT [facility]LINARY TEAM MEETING. CM WAITING AVAILABLE BED AT [facility] FOR [facility]. 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 AT [phone]. CM WAITING ADMISSION DETERMINATION FROM [facility]. Chacho Mackey CASE ADA DCP- Discharge Planning Updated by [id number]: Chacho Mackey on 11/06/19 10:[address] Patient Name: NORI Nettles PIERRE Encounter No: [id number] : 1940 Primary Insurance: MEDICARE A & B Anticipated DC Date: 10-29-2019 Planned Disposition: Business Strategy Manager Acute Care Facility External Planned Provider: [facility] DCP follow-up note: CM FAXED REFERRAL UDPATE TO [facility] AT [phone]. CM WAITING ADMISSION DETERMINATION FROM [facility]. 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 CM MET WITH PT AND STEP DAUGHTER IN ROOM. NORI JAY provided verbal consent to discuss current and ongoing needs with/in the presence of: STEP DAUGHTER. CM DISCUSSED LTACH REFERRAL AND LTACH AVAILABILITIY. PT TEARFUL AND WAS HOPING SHE WOULD BE HOME FOR [place]. CM EXPLAINED TO PT THAT DR. ARORA FEELS PT WILL REQUIRE THREE WEEKS OF HOSPITALIZATION. PT STATES THAT THE DOCTOR IS "FULL OF SHIT". CM EXPLAINED THAT PT HAS BEEN VERY ILL AND THAT IT WOULD TAKE SOME TIME TO RECUPERATE AND GET PT'S OXYGEN NEEDS TO A LEVEL THAT CAN BE PROVIDED AT HOME FOR PT TO ACTUALLY GO HOME. PT REPORTS UNDERSTANDING, PT IN AGREEMENT WITH REFERRAL TO LTACH REFERRAL TO [facility] IN [place]. IMPORTANT MESSAGE FROM MEDICARE PROVIDED AND EXPLAINED. CM CALLED [facility] OF [facility], , LEFT DETAILED MESSAGE ASKING FOR ADMISSION DETERMINATION. CM FAXED REFERRAL TO [facility] AT [phone]. CM WAITING ADMISSION DETERMINATION FROM [facility]. Chacho Mackey , CASE MANAGEMENT DCP- Discharge Planning Updated by [id number]: Petra Durán on 10/27/19 2:[address] DC PLAN: Return home independently with her significant other. ANTICIPATED DC NEEDS: Denied known dc needs. CM met with patient to complete initial dc planning assessment. CM educated patient on the CM role and verbal consent given by patient to complete assessment. CM verified patient's address, phone number, and emergency contact phone numbers. Patient lives at home independently with her significant other. At discharge patient plans to return home and feels this is a safe discharge. CM discussed availability of home health, rehab services, and medical equipment. Patient denied known discharge needs at this time. Transportation provider at discharge will be Alfonzo. CM will continue to follow and will assist as needed with dc plans/needs. Petra Durán RN, CCM DCPIA - Discharge Planning Initial Assessment Updated by [id number]: Chacho Mackey on 11/05/19 4:37 pm * Is the patient Alert and Oriented? Yes * How many steps to enter\\exit or inside your home? None * PCP Dr. Bethea * Pharmacy [facility] [address] [place] [phone] * Preadmission Environment Home with Family * ADLs Independent * Equipment Cane Nebulizer Oxygen * Other Equipment Home oxygen with portability. Chris is DME provider. * List name and contact numbers for known caregivers / representatives who currently or will assist patient after discharge: Alfonzo Beltran - [facility] - [phone] WIL JAY, SON, HILARIO JAY, SON, * Verbal permission to speak to the caregivers and representatives has been obtained from the patient. Yes * Community resources currently utilized None * Additional services required to return to the preadmission environment? No * Can the patient safely return to the preadmission environment? Yes * Has this patient been hospitalized within the prior 30 days at any hospital? No Coverage Notice Reviewer: SANDOVAL Mackey Notice Issued Date-Time: 11/05/2019 11:35 Notice Type: IM Discharge Notice Notice Delivered To: Patient Relationship to Patient: Pony Ride Operator Name: Delivery Method: HAND - Hand Delivered Monalisa Days: Prior Verbal Notification: Recipient Understood Notice: Yes Recipient Signature: Yes Med Rec Note Co-signed by Attending: Coverage Notice Comment: Reviewer: SANDOVAL Mackey Notice Issued Date-Time: 11/06/2019 12:55 Notice Type: Patient Choice Letter Notice Delivered To: Patient Relationship to Patient: Pony Ride Operator Name: Delivery Method: HAND - Hand Delivered Monalisa Days: Prior Verbal Notification: Recipient Understood Notice: Yes Recipient Signature: Yes Med Rec Note Co-signed by Attending: Coverage Notice Comment: TAL HERNANDEZ Last DP export: 11/12/19 9:26 Patient Name: NORI JAY Page [phone] at 1547 All edits/amendments must be made on the electronic document DICTATION DATE: 11/12/19 1547 SUPERVISORY HISTORIAN: RUPAL 11/12/19 1547 RPT#: [id number] DC DATE: STATUS: ADM IN [facility] [address] [place] [address] END OF REPORT
--- NOTE | 2019-11-12 16:54 | NUR ---
CENTRAL LINE PLACED AT BEDSIDE BY , PROCEDURE COMPLETE AT 1640. AWAITING XRAY REPORT TO BEFORE USING CVL.
[2019-11-12 17:43] VITALS: BP 151/70
--- NOTE | 2019-11-12 18:00 | NUR ---
COMPLETE LINEN CHANGE AND INCONTINENT CARE PROVIDED TO THIS PATIENT. BLOOD LEAKED ONTO SHEET DURING CVL PLACMENT. PATIENT TOLERATED LINEN CHANGE WELL.
--- NOTE | 2019-11-12 18:39 | NUR ---
MIDLINE TO RIGHT UPPER ARM REMOVED, CATHETER TIP INTACT, NO BLEEDING TO SITE. PRESSURE HELD AND GAUZE SECURED WITH CLEAR TEGADERM. PATIENT TOLERATED REMOVAL WELL. NO DISTRESS.
--- NOTE | 2019-11-12 19:10 | NUR ---
BEDSIDE REPORT RECEIVED FROM DAY SHIFT, PT CARE ASSUMED. INTRODUCED SELF AND WROTE NAME ON BOARD. PT SITTING UP IN BED, VISITING WITH FAMILY, AAOX4, REQUESTING PRN XANAX, ADMINISTERED, PER ORDER. DENIES ANY OTHER NEEDS AT THIS TIME. BED IN LOWEST POSITION, SR X2, CALL LIGHT WITHIN REACH. WILL CONTINUE TO MONITOR.
[2019-11-12 20:00] VITALS: BP 155/69
[2019-11-13 04:00] VITALS: BP 150/56
[2019-11-13 05:58] LABS: BASOPHILS 0 % (0-2); EOSINOPHILS 0 % (0-7); HEMOGLOBIN 9.7 g/dL (12-16); IMMATURE GRANULOCYTES 0.3 % (0-5); LYMPHOCYTES 1.9 % (15-50); MCH 27.1 pg (26.0-34.0); MCHC 31.3 g/dL (31.0-37.0); MCV 86.6 fL (80.0-100.0); MEAN PLATELET VOLUME 10.4 fL (7.4-10.4); NEUTROPHILS 95.8 % (40-80); PLATELET COUNT 155 10x3/uL (130-400); RBC 3.58 10x6/uL (4.00-5.40); RDW 16.2 % (11.5-14.5); WBC 11.8 10x3/uL (4.8-10.8)
[2019-11-13 06:14] LABS: INR 2.47 (0.85-1.17)
[2019-11-13 06:15] LABS: CALC OSMOLALITY 298 mosm/kg (275-300); CALCIUM 8.2 mg/dL (8.5-10.1); CARBON DIOXIDE 29.8 mmol/L (21.0-32.0); CHLORIDE - SERUM 108 mmol/L (98-107); CREATININE - SERUM 0.6 mg/dL (0.6-1.3); GLUCOSE 116 mg/dL (74-106); POTASSIUM - SERUM 4.2 mmol/L (3.5-5.1); SODIUM 146 mmol/L (136-145); UREA NITROGEN 31 mg/dL (7-18); eGFR NON AFRICAN AMERICAN > 90 mL/min (90-120)
--- NOTE | 2019-11-13 08:04 | NUR ---
PATIENT IS ALERT AND ORIENTED. ИВАН AT BEDSIDE. SHE GETS UP TO THE BEDSIDE COMMODE WITH TWO PERSON ASSIST. THIS MORNING SHE WAS UP WITH ASSIST TO THE BEDSIDE COMMODE AND SHE IS CONSTIPATED, SMALL BM, AND HARD STOOL VISABLE THAT SHE COULD NOT PASS. THERE IS EXCORIATION ON HER BUTTOCK. SHE IS ON THE FIRST STEP OVERLAY. DENIES ANY NEEDS AT THIS TIME. SILL ASK FOR A STOOL SOFTENER. PATIENT IS CONCERNED ABOUT HAVING DIARREAH WITH THE SORES ON HER BUTT, HOWEVER SHE MAY GET HEMMORROIDS IF SHE DOES NOT GET SOMETHING.
[2019-11-13 08:07] VITALS: BP 151/63
--- NOTE | 2019-11-13 08:47 | NUR ---
HEART RATE HAS BEEN IN THE 144 TO 150'S FOR ABOUT 30 MINUTES.
--- NOTE | 2019-11-13 10:04 | NUR ---
CALLED DR KEYES, HE ORDERED A EKG AND TELEMETRY. PATIENT IS IN A FIB NOW. CALLING TO REPORT.
--- NOTE | 2019-11-13 10:07 | NUR ---
NO TX GIVEN HR 157
--- NOTE | 2019-11-13 10:22 | NUR ---
PAGED DR. KEYES AGAIN, HE ORDERED ONE TIME DOSE IV CARDEZEM.
[2019-11-13 11:05] VITALS: BP 138/81
--- NOTE | 2019-11-13 12:02 | NUR ---
CALLED DR KEYES AGAIN ABOUT PATIENT HEART RATE, STAYING IN THE 140-150'S. IT HAS BEEN OVER ONE HOUR. WILL GIVE 5MG IV METOPROLOL NOW AND CONTINUE TO MONITOR.
--- NOTE | 2019-11-13 14:08 | NUR ---
NO TX GIVEN PT HR 150
[2019-11-13 15:16] VITALS: BP 93/46
--- NOTE | 2019-11-13 15:22 | NUR ---
REPOSITIONED AND CLEANED UP PATIENT. SHE HAS HAD VISITORS ALL DAY. CARDEZEM DRIP STARTED PER DR KEYES ORDERS. VANCOMYCIN INFUSING. B/P WAS LOW AFTER THE METOPROLOL INJECTION, 93/46. WILL CONTINUE TO MONITOR CLOSELY. HEART RATE IS STILL IN THE 140'S. PATIENT IS CONCERNED WITH USING THE BATHROOM. SHE IS CONSTIPATED. GAVE HER WARM PRUNE JUICE AND SPRITE. TOLD GARRISON ABOUT HER CONCERNS AND HAVE NOT RECIEVED ORDERS YET. WILL ASK AGAIN FOR STOOL SOFTENER. APPLIED CALMOSEPTINE ON HER BUTTOCK AND REPOSITIONED HER ON PILLOWS SO SHE IS NOT STRAIGHT ON HER BACK. PILLOWS UNDER THE RIGHT HIP NOW.
--- NOTE | 2019-11-13 17:55 | NUR ---
PULSE IS MORE STABLE SINCE THE CARDIZEM DRIP WAS STARTED. HER PULSE IS AT 89 AND 98 SINUS . SHE JUST HAD A SMALL HARD BM. SHE HAS SORES ON HER COCCYX. GRANDDAUGHTER AT BEDSIDE. ALL THE PATIENT WILL EAT ARE BOOST MILKSHAKES. SHE HAD A LITTLE PRUNE JUICE AND SPRITE.
[2019-11-13 20:00] VITALS: BP 136/60
--- NOTE | 2019-11-13 21:47 | NUR ---
PT RESTING IN BED ALERT AND ORIENTED X4. PT COMPLAING OF PAIN RELATED TO CONSTIPATION. VITALS STABLE. GRAND-DAUGHTER AT BEDSIDE WHO HELPS ASSIST WITH TURNING AND BEDPAN NEEDS. NO S/S OF DISTRESS AT THIS TIME. RT PLACED BI-PAP ON PT. CARDIZEM DRIP GOING AT 10ML/HR TELE-75 AFIB. BED LOW CALL LIGHT WITHIN REACH. WILL CONTINUE TO MONITOR.
[2019-11-14] VITALS (7 sets, daily range): BP systolic 100–137; BP diastolic 42–74
--- NOTE | 2019-11-14 01:54 | NUR ---
ASSISTED PT TO BEDPAN. PT HAVING DIFFICULT AND PAINFUL TIME HAVING BOWEL MOVEMENT. PT FAMILY AT BEDSIDE. BED LOW CALL LIGHT WITHIN [facility]. WILL CONTINUE TO MONITOR.
--- NOTE | 2019-11-14 03:03 | NUR ---
I have reviewed this patient and I concur with the Shift Assessment completed by the Licensed Practical Nurse today this shift.
[2019-11-14 05:13] LABS: CALC OSMOLALITY 294 mosm/kg (275-300); CALCIUM 8.2 mg/dL (8.5-10.1); CARBON DIOXIDE 30.2 mmol/L (21.0-32.0); CHLORIDE - SERUM 109 mmol/L (98-107); CREATININE - SERUM 0.6 mg/dL (0.6-1.3); GLUCOSE 125 mg/dL (74-106); POTASSIUM - SERUM 4.1 mmol/L (3.5-5.1); SODIUM 144 mmol/L (136-145); UREA NITROGEN 31 mg/dL (7-18); eGFR NON AFRICAN AMERICAN > 90 mL/min (90-120)
[2019-11-14 05:14] LABS: BASOPHILS 0 % (0-2); EOSINOPHILS 0 % (0-7); HEMATOCRIT 32.4 % (36.0-48.0); HEMOGLOBIN 10.1 g/dL (12-16); IMMATURE GRANULOCYTES 0.3 % (0-5); LYMPHOCYTES 2.4 % (15-50); MCH 27.4 pg (26.0-34.0); MCHC 31.2 g/dL (31.0-37.0); MCV 87.8 fL (80.0-100.0); MEAN PLATELET VOLUME 10.2 fL (7.4-10.4); MONOCYTES 2.5 % (2-11); NEUTROPHILS 94.8 % (40-80); PLATELET COUNT 146 10x3/uL (130-400); RBC 3.69 10x6/uL (4.00-5.40); RDW 16.3 % (11.5-14.5); WBC 10.2 10x3/uL (4.8-10.8)
--- NOTE | 2019-11-14 05:28 | NUR ---
PT HR PER TELE 65. DECREASED CARDIZEM TO 5ML/HR. PT ALERT AND ORIENTED X4. NO S/S OF DISTRESS AT THIS TIME. WILL CONTINUE TO MONITOR.
--- NOTE | 2019-11-14 07:20 | NUR ---
PT RECEIVED LAYING IN BED, AWAKE AND ALERT, GETTING BREATHING TREATMENT. FAMILY AT BEDSIDE.
--- NOTE | 2019-11-14 09:40 | NUR ---
PT ASKING FOR SOMETHING FOR BM. STATES SHE WAS TRYING YESTERDAY AND NURSE WAS CHECKING FOR IMPACTION WHEN SHE WENT INTO DISRYTHMIA AND NOW ON CARDIZEM GTT. LAST BM WAS SMALL HARD PELLET. NOTHING ELSE SINCE ADMISSION TO FLOOR PER PT.
--- NOTE | 2019-11-14 13:39 | NUR ---
Nutrition Follow-up: Pt reports eating small portion of breakfast this AM (yogurt, milk, 1/2 pancake). Reports drinking Boost milkshakes (with ice cream) and Boost drinks daily. C/o sore tongue; receiving mouthwash. C/o constipation and that last BM was over a week ago; nursing aware. Per wound care nurse note on 11/11, pt with stage 2 PU to R buttock. Diet: Cardiac, Mech Soft with Gravy, Boost TID PO intake: 38% avg x 6 meals Wt: 152# (11/14); 142.1# (11/04) Labs noted: Glu 125, Ca 8.2 Meds noted: Solumedrol, Coumadin -Rec appetite stimulant. -Will monitor wt and skin integrity. -RD following.
--- NOTE | 2019-11-14 13:59 | NUR ---
PT BRIDGED WITH ORAL CARDIZEM AND GTT STOPPED. TELEMETRY IN USE, SINUS RHYTHM AT PRESENT.
--- NOTE | 2019-11-14 13:59 | MORECARE ---
CASE MANAGEMENT DISCHARGE SUMMARY PATIENT: NORI JAY UNIT: [id number] ADM DATE: 10/27/19 AGE: 79 : 38 SEX: F ROOM/BED: D.2102 AUTHOR: SABI CORTES PHYSICIAN: REFERRING PHYSICIAN: JACOBO ARORA MD DATE OF SERVICE: 11/14/19 Discharge Plan Patient Name: NORI JAY Facility: [facility]:[place] : 1940 Planned Disposition: Long-Term Acute Care Facility Anticipated Discharge Date: 11/08/19 Discharge Date: Expected LOS: 12 Initial Reviewer: [id number] Initial Review Date: 11/06/2019 Generated: 11/14/19 2:59 pm Comments DCP- Discharge Planning Updated by [email or web address]: Chacho Mackey on 11/14/19 12:[address] Patient Name: NORI JAY Encounter No: [id number] : 1940 Primary Insurance: MEDICARE A & B Anticipated DC Date: 11-08-2019 Planned Disposition: Long-Term Acute Care Facility External Planned Provider: [facility] DCP follow-up note: CM CALLED [facility], ; THEY DO NOT HAVE AVAILABLE BEDS AT THIS TIME AND HAVE POSSIBLE DISCHARGES LATER THIS WEEK. CM FAXED UPDATE TO [facility] AT [phone]. CM WAITING AVAILABLE BED AT [facility]. LARRY Singer DCP- Discharge Planning Updated by [id number]: Chacho Mackey on 11/12/19 9:[address] Patient Name: NORI JAY Encounter No: [id number] : 1940 Primary Insurance: MEDICARE A & B Anticipated DC Date: 11-08-2019 Planned Disposition: Long-Term Acute Care Facility External Planned Provider: [facility] DCP follow-up note: CM CALLED [facility], ; THEY DO NOT HAVE AVAILABLE BEDS AT THIS TIME AND HAVE POSSIBLE DISCHARGES LATER THIS WEEK. [facility] ADVISED TO FAX UPDATE ON 11-14-19. CM WAITING AVAILABLE BED AT [facility]. CM TO FAX UPDATE 11-14-19 TO [facility]. LARRY Singer DCP- Discharge Planning Updated by [id number]: Chacho Mackey on 11/07/19 10:[address] Patient Name: NORI JAY Encounter No: [id number] : 1940 Primary Insurance: MEDICARE A & B Anticipated DC Date: 11-08-2019 Planned Disposition: Long-Term Acute Care Facility External Planned Provider: [facility] DCP follow-up note: CM RECEIVED CALL FROM [facility] OF [facility] OF [place], THEY PLAN TO ACCEPT PT BUT DO NOT HAVE AVAILABLE BEDS AT THIS TIME. CM SPOKE TO PT IN ROOM, DISCUSSED [facility] FACILITIES OUTSIDE OF [place]. PT IS NOT WILLING TO BE PLACED IN [facility] OUTSIDE OF [place]. PT IS WILLING TO WAIT FOR LTACH BED AT [facility]. CM NOTIFIED CARE TEAM MEMBERS AT [facility]CIPLINARY TEAM MEETING. CM WAITING AVAILABLE BED AT [facility]. LARRY Singer DCP- Discharge Planning Updated by [id number]: Chacho Mackey on 11/07/19 7:[address] Patient Name: NORI JAY Encounter No: [id number] : 1940 Primary Insurance: MEDICARE A & B Anticipated DC Date: 10-29-2019 Planned Disposition: Care Coordinator Acute Care Facility External Planned Provider: [facility] DCP follow-up note: CM FAXED REFERRAL UDPATE TO [facility] AT [phone]. CM WAITING ADMISSION DETERMINATION FROM [facility]. LARRY Singer DCP- Discharge Planning Updated by [id number]: Chacho Mackey on 11/06/19 10:[address] Patient Name: NORI JAY Encounter No: [id number] : 1940 Primary Insurance: MEDICARE A & B Anticipated DC Date: 10-29-2019 Planned Disposition: Care Coordinator Acute Care Facility External Planned Provider: [facility] DCP follow-up note: CM FAXED REFERRAL UDPATE TO [facility] AT [phone]. CM WAITING ADMISSION DETERMINATION FROM [facility]. LARRY Singer MANAGEMENT DCP- Discharge Planning Updated by [id number]: Chacho Mackey on 11/05/19 11:[address] Patient Name: NORI JAY Encounter No: [id number] : 1940 Primary Insurance: MEDICARE A & B Anticipated DC Date: 10-29-2019 Planned Disposition: Care Coordinator Acute Care Facility External Planned Provider: [facility] DCP follow-up note: CM RECEIVED ORDER FOR LTACH REFERRAL. CM MET WITH PT AND STEP DAUGHTER IN ROOM. NORI JAY provided verbal consent to discuss current and ongoing needs with/in the presence of: STEP DAUGHTER. CM DISCUSSED LTACH REFERRAL AND LTACH AVAILABILITIY. PT TEARFUL AND WAS HOPING SHE WOULD BE HOME FOR [place]. CM EXPLAINED TO PT THAT DR. ARORA FEELS PT WILL REQUIRE THREE WEEKS OF HOSPITALIZATION. PT STATES THAT THE DOCTOR IS "FULL OF SHIT". CM EXPLAINED THAT PT HAS BEEN VERY ILL AND THAT IT WOULD TAKE SOME TIME TO RECUPERATE AND GET PT'S OXYGEN NEEDS TO A LEVEL THAT CAN BE PROVIDED AT HOME FOR PT TO ACTUALLY GO HOME. PT REPORTS UNDERSTANDING, PT IN AGREEMENT WITH REFERRAL TO LTACH [facility] [place]. IMPORTANT MESSAGE FROM MEDICARE PROVIDED AND EXPLAINED. CM CALLED [facility] OF [facility], , LEFT DETAILED MESSAGE ASKING FOR ADMISSION DETERMINATION. CM FAXED REFERRAL TO [facility] AT [phone]. CM WAITING ADMISSION DETERMINATION FROM [facility]. Chacho Mackey , CASE MANAGEMENT DCP- Discharge Planning Updated by [id number]: Petra Durán on 10/27/19 2:[address] DC PLAN: Return home independently with her significant other. ANTICIPATED DC NEEDS: Denied known dc needs. CM met with patient to complete initial dc planning assessment. CM educated patient on the CM role and verbal consent given by patient to complete assessment. CM verified patient's address, phone number, and emergency contact phone numbers. Patient lives at home independently with her significant other. At discharge patient plans to return home and feels this is a safe discharge. CM discussed availability of home health, rehab services, and medical equipment. Patient denied known discharge needs at this time. Transportation provider at discharge will be Alfonzo. CM will continue to follow and will assist as needed with dc plans/needs. Petra Durán RN, [facility] DCPIA - Discharge Planning Initial Assessment Updated by SANDOVAL: Chacho Mackey on 11/05/19 4:37 pm * Is the patient Alert and Oriented? Yes * How many steps to enter\\exit or inside your home? None * PCP Dr. Bethea * Pharmacy [facility] [address] [place] [phone] * Preadmission Environment Home with Family * ADLs Independent * Equipment Cane Nebulizer Oxygen * Other Equipment Home oxygen with portability. Chris is DME provider. * List name and contact numbers for known caregivers / representatives who currently or will assist patient after discharge: Alfonzo Beltran - [facility] - [phone] WIL JAY, SON, HILARIO JAY, SON, * Verbal permission to speak to the caregivers and representatives has been obtained from the patient. Yes * Community resources currently utilized None * Additional services required to return to the preadmission environment? No * Can the patient safely return to the preadmission environment? Yes * Has this patient been hospitalized within the prior 30 days at any hospital? No Coverage Notice Reviewer: [email or web address] Jovani Mackey Notice Issued Date-Time: 11/05/2019 11:35 Notice Type: IM Discharge Notice Notice Delivered To: Patient Relationship to Patient: Sterile Proc Tech Name: Delivery Method: HAND - Hand Delivered Monalisa Days: Prior Verbal Notification: Recipient Understood Notice: Yes Recipient Signature: Yes Med Rec Note Co-signed by Attending: Coverage Notice Comment: Reviewer: [id number] Jovani Mackey Notice Issued Date-Time: 11/06/2019 12:55 Notice Type: Patient Choice Letter Notice Delivered To: Patient Relationship to Patient: Sterile Proc Tech Name: Delivery Method: HAND - Hand Delivered Monalisa Days: Prior Verbal Notification: Recipient Understood Notice: Yes Recipient Signature: Yes Med Rec Note Co-signed by Attending: Coverage Notice Comment: TAL Carrasco DP export: 11/12/19 2:47 Patient Name: NORI JAY Page [phone] at 1359 All edits/amendments must be made on the electronic document DICTATION DATE: 11/14/19 1923 FLAT DRIER: RUPAL 11/14/19 1357 RPT#: [id number] DC DATE: STATUS: ADM IN [facility] [address] [place] [address] END OF REPORT
--- NOTE | 2019-11-14 14:57 | NUR ---
OT NOTE: PT PERFORMED WELL. PT SITTING ON BS COMMODE. SIT TO STAND WITH MOD ASSIST X 2; ABLE TO STAND FOR APPROX 1 MIN WHILE HAND COMPOSITOR PERFORMED PERINEAL CARE. PT ABLE TO AMB APPROX 6 FT WITH MOD ASSIST X 2. BACK TO BED WITH MAX ASSIST. BED MOB TO INCLUDE ROLLILNG FROM SIDE TO SIDE WITH MIN ASSIST. EDUCATED PT ON BENDING KNEES AND USING HAND RAILS TO ASSIST WITH SCOOTING UP IN BED. MIRIAM STEPHENS, OTR/L [phone]
--- NOTE | 2019-11-14 16:02 | NUR ---
PT OUT OF BED TO CHAIR WITH THERAPY FOR GOOD WHILE. PT'S GRANDDAUGHTER IN ROOM AND IS HELPING HER POSITION FREQUENTLY. NEW TUBE OF CALMOSEPTINE SUPPLIED FOR STAGE 2 ON COCCYX.
--- NOTE | 2019-11-14 16:33 | NUR ---
OT NOTE: PT COMPLETED BED MOB WITH MIN/MOD A. PT COMPLETED SUPINE TO SIT WITH MOD A. PT COMPLETED TRANSFER FROM BED TO CHAIR WITH MOD A. PT COMPLETED HAIR GROOMING WITH SET UP. PT COMPLETED ORAL CARE WITH SET UP. PT COMPLETED BUE AROM EXS. [phone] THANK YOU, JOVITA NGUYỄN
--- NOTE | 2019-11-14 18:40 | NUR ---
PT TURNED TO RIGHT SIDE WITH PILLOW USED PROP.
--- NOTE | 2019-11-14 22:50 | NUR ---
PT RESTING IN BED WITH EYES CLOSED. RR EVEN AND UNLABORED WITH BI-PAP IN USE. TURNED PT TO LEFT SIDE WITH ASSISTANCE FROM GRAND-DAUGHTER AT BEDSIDE. NO S/S OF DISTRESS AT THIS TIME. PT DENIES ANYB PAIN OR FURTHER NEEDS AT THIS TIME. BED LOW CALL LIGHT WITHIN REACH. WILL CONTINUE TO MONITOR.
[2019-11-15 03:50] VITALS: BP 142/70
--- NOTE | 2019-11-15 06:35 | NUR ---
PT AND FAMILY REQUESTING THAT A PHILLIPS CATHETER BE CONSIDERED DUE TO BREAK DOWN ON PT BUTTOCK. PT AND FAMIY STATE THAT URINE IS RUNNING INTO WOUND CAUSING EXTREME DISCOMFORT AND AND WORSENING OF WOUND. PT IS INCONTINENT AND IS UNABLE TO ALWAYS TELL WHEN SHE NEEDS TO GO. PT HAS BEEN CONSTIPATED AND HAVING SMALL LIQUID BOWEL MOVEMENTS WITH PAIN.
--- NOTE | 2019-11-15 07:29 | NUR ---
REPORT RECIEVED. PT SITTING SEMI PATTON IN BED. RR EVEN AND UNLABORED ON 30% VAPOTHERM. PT HAS A R IJ TRIPLE LUMAN THAT IS SL. PT STATES SHE IS CONCERED ABOUT THE RASH ON HER RIGHT ARM. BED LOCKED AND IN LOWEST POSITION, CALL LIGHT ISA SAUCEDO. WILL CTM
--- NOTE | 2019-11-15 08:49 | OP ---
PATIENT NAME: NORI JAY MEDICAL RECORD: [id number] :[birth year] LOCATION:D.M2 D.2101 ADMISSION DATE:10/27/19 SURGEON: RAMON RODRIGUEZ MD DATE OF OPERATION: 11/12/2019 PREOPERATIVE DIAGNOSES: 1. Respiratory insufficiency. 2. Chronic obstructive pulmonary disease. 3. Bronchitis. 4. Lack of peripheral IV access for IV antibiotics. POSTOPERATIVE DIAGNOSES: 1. Respiratory insufficiency. 2. Chronic obstructive pulmonary disease. 3. Bronchitis. 4. Lack of peripheral IV access for IV antibiotics. PROCEDURE: Insertion of right internal jugular triple lumen central venous catheter. SURGEON: Ramon Rodriguez MD ASPARAGUS BUNCHER: None. BLOOD LOSS: Minimal. ANESTHESIA: Local. COMPLICATIONS: None. The entire procedure was performed with the presence of a female nurse. The risks, possible complications and alternatives to the procedure were explained to the patient. She elects to proceed. The discussion specifically included, but was not limited to, bleeding requiring emergency reoperation, infection, great vessel injury, pneumothorax and . OPERATIVE COURSE: The patient was seen in her room. She was positioned in the Trendelenburg position. The right neck was sterilely prepped and draped. A local anesthetic was used to infiltrate the skin and subcutaneous tissues of the right neck. The right internal jugular vein was accessed under ultrasound in an antegrade fashion. This was difficult due to the fact that the vein kept prolapsing. A guidewire was passed easily. A small skin robert was accomplished. A vessel dilator was used to dilate a subcutaneous tract. A 16-cm triple lumen central venous catheter was inserted to the hub, it was sutured in place times 3. All lumens flushed easily and aspirated dark, nonpulsatile blood. A stat portable chest x-ray revealed adequate placement of central venous line without pneumothorax or radiographic evidence of complication. TRANSINT:[id number] Voice Confirmation ID: [id number] DOCUMENT ID: [id number] OPERATIVE REPORT [id number] NORI JAY ROBERT MD at 0849 CC: [id number] DICTATION DATE: 11/13/19 1036 NEW AUTOS DELIVERY DRIVER: 11/13/19 1050 [place] [address]
[2019-11-15 09:43] VITALS: BP 143/62
--- NOTE | 2019-11-15 11:22 | NUR ---
PHILLIPS INSTERTED USING STERILE TECHNIQUE. PT HAD 2100ML IN BLADDER AT THIS TIME. URINE DARK IN COLOR. WILL CTM
[2019-11-15 12:14] VITALS: BP 143/60
[2019-11-15 12:21] LABS: INR 4.74 (0.85-1.17); PROTIME 43.7 SECONDS (11.6-15.0)
--- NOTE | 2019-11-15 15:46 | MORECARE ---
CASE MANAGEMENT DISCHARGE SUMMARY PATIENT: NORI JAY UNIT: [id number] ADM DATE: 10/27/19 AGE: 79 : 38 SEX: F ROOM/BED: D.2100 AUTHOR: SABI CORTES PHYSICIAN: REFERRING PHYSICIAN: JACOBO ARORA MD DATE OF SERVICE: 11/15/19 Discharge Plan Patient Name: NORI JAY Facility: [facility]:[place] : 1940 Planned Disposition: Nursing Home Acute Care Facility Anticipated Discharge Date: 11/08/19 Discharge Date: Expected LOS: 12 Initial Reviewer: [email or web address] Initial Review Date: 11/06/2019 Generated: 11/15/19 4:46 pm Comments DCP- Discharge Planning Updated by [id number]: Chacho Mackey on 11/15/19 2:[address] Patient Name: NORI JAY Encounter No: [id number] : 1940 Primary Insurance: MEDICARE A & B Anticipated DC Date: 11-08-2019 Planned Disposition: Outreach Rep Acute Care Facility External Planned Provider: [facility] [place] DCP follow-up note: CM CALLED [facility], ; THEY DO NOT HAVE AVAILABLE BEDS AT THIS TIME. CM FAXED UPDATE TO [employer] AT [phone]. CM WAITING AVAILABLE BED AT [facility]. LARRY Singer DCP- Discharge Planning Updated by [email or web address]: Chacho Mackey on 11/14/19 12:[address] Patient Name: NORI JAY Encounter No: [id number] : 1940 Primary Insurance: MEDICARE A & B Anticipated DC Date: 11-08-2019 Planned Disposition: Nursing Home Acute Care Facility External [facility] [place] DCP follow-up note: [facility], ; THEY DO NOT HAVE AVAILABLE BEDS AT THIS TIME AND HAVE POSSIBLE DISCHARGES LATER THIS WEEK. CM [facility] AT [phone]. CM WAITING AVAILABLE BED AT [facility]. LARRY Singer DCP- Discharge Planning Updated by [id number]: Chacho Mackey on 11/12/19 9:[address] Patient Name: NORI JAY Encounter No: [id number] : 1940 Primary Insurance: MEDICARE A & B Anticipated DC Date: 11-08-2019 Planned Disposition: Nursing Home Acute Care Facility External Planned Provider: [facility] DCP follow-up note: CM CALLED [facility], ; THEY DO NOT HAVE AVAILABLE BEDS AT THIS TIME AND HAVE POSSIBLE DISCHARGES LATER THIS WEEK. [facility] ADVISED TO FAX UPDATE ON 11-14-19. CM WAITING AVAILABLE BED AT [facility]. CM TO FAX UPDATE 11-14-19 TO [facility]. LARRY Singer DCP- Discharge Planning Updated by [id number]: Chacho Mackey on 11/07/19 10:[address] Patient Name: NORI JAY Encounter No: [id number] : 1940 Primary Insurance: MEDICARE A & B Anticipated DC Date: 11-08-2019 Planned Disposition: Nursing Home Acute Care Facility External Planned Provider: [facility] DCP follow-up note: CM RECEIVED CALL FROM [facility], THEY PLAN TO ACCEPT PT BUT DO NOT HAVE AVAILABLE BEDS AT THIS TIME. CM SPOKE TO PT IN ROOM, DISCUSSED [facility] FACILITIES OUT[place]IDE OF [place]. PT IS NOT WILLING TO BE PLACED IN [facility] OUT[place]. PT IS WILLING TO WAIT FOR LTACH BED AT [facility]. CM NOTIFIED CARE TEAM MEMBERS AT [employer] TEAM MEETING. CM WAITING AVAILABLE BED AT [facility]. LARRY Singer DCP- Discharge Planning Updated by [id number]: Chacho Mackey on 11/07/19 7:[address] Patient Name: NORI JAY Encounter No: [id number] : 1940 Primary Insurance: MEDICARE A & B Anticipated DC Date: 10-29-2019 Planned Disposition: Nursing Home Acute Care Facility External Planned [facility] DCP follow-up note: CM FAXED REFERRAL UDPATE TO [facility] AT [phone]. CM WAITING ADMISSION DETERMINATION FROM [facility]. Chacho Mackey CASE MANAGEMENT DCP- Discharge Planning Updated by [id number]: Chacho Mackey on 11/06/19 10:[address] Patient Name: NORI JAY Encounter No: [id number] : 1940 Primary Insurance: MEDICARE A & B Anticipated DC Date: 10-29-2019 Planned Disposition: Outreach Rep Acute Care Facility External Planned [facility]: [facility] DCP follow-up note: CM FAXED REFERRAL UDPATE TO [facility] AT [phone]. CM WAITING ADMISSION DETERMINATION FROM [facility]. Chacho Mackey CASE ADA DCP- Discharge Planning Updated by [id number]: Chacho Mackey on 11/05/19 11:[address] Patient Name: NORI JAY Encounter No: [id number] : 1940 Primary Insurance: MEDICARE A & B Anticipated DC Date: 10-29-2019 Planned Disposition: Nursing Home Acute Care Facility External Planned Provider: [facility]CP follow-up note: CM RECEIVED ORDER FOR LTACH REFERRAL. CM MET WITH PT AND STEP DAUGHTER IN ROOM. NORI JAY provided verbal consent to discuss current and ongoing needs with/in the presence of: STEP DAUGHTER. CM DISCUSSED LTACH REFERRAL AND LTACH AVAILABILITIY. PT TEARFUL AND WAS HOPING SHE WOULD BE HOME FOR [place]. CM EXPLAINED TO PT THAT DR. ARORA FEELS PT WILL REQUIRE THREE WEEKS OF HOSPITALIZATION. PT STATES THAT THE DOCTOR IS "FULL OF SHIT". CM EXPLAINED THAT PT HAS BEEN VERY ILL AND THAT IT WOULD TAKE SOME TIME TO RECUPERATE AND GET PT'S OXYGEN NEEDS TO A LEVEL THAT CAN BE PROVIDED AT HOME FOR PT TO ACTUALLY GO HOME. PT REPORTS UNDERSTANDING, PT IN AGREEMENT WITH REFERRAL TO LTACH REFERRAL TO [facility] [place]. IMPORTANT MESSAGE FROM MEDICARE PROVIDED AND EXPLAINED. CM CALLED [facility], , LEFT DETAILED MESSAGE ASKING FOR ADMISSION DETERMINATION. CM FAXED REFERRAL TO [facility] AT [phone]. CM WAITING ADMISSION DETERMINATION FROM [facility]. Chacho Mackey , CASE MANAGEMENT DCP- Discharge Planning Updated by [id number]: Petra Durán on 10/27/19 2:[address] DC PLAN: Return home independently with her significant other. ANTICIPATED DC NEEDS: Denied known dc needs. CM met with patient to complete initial dc planning assessment. CM educated patient on the CM role and verbal consent given by patient to complete assessment. CM verified patient's address, phone number, and emergency contact phone numbers. Patient lives at home independently with her significant other. At discharge patient plans to return home and feels this is a safe discharge. CM discussed availability of home health, rehab services, and medical equipment. Patient denied known discharge needs at this time. Transportation provider at discharge will be Alfonzo. CM will continue to follow and will assist as needed with dc plans/needs. Petra Durán RN, [facility] DCPIA - Discharge Planning Initial Assessment Updated by [email or web address]: Chacho Mackey on 11/05/19 4:37 pm * Is the patient Alert and Oriented? Yes * How many steps to enter\\exit or inside your home? None * PCP Dr. Bethea * Pharmacy [facility] [address] [place] [phone] * Preadmission Environment Home with Family * ADLs Independent * Equipment Cane Nebulizer Oxygen * Other Equipment Home oxygen with portability. Chris is DME provider. * List name and contact numbers for known caregivers / representatives who currently or will assist patient after discharge: Alfonzo Beltran - herber other - [phone] WIL JAY, SON, HILARIOStew JAY, SON, * Verbal permission to speak to the caregivers and representatives has been obtained from the patient. Yes * Community resources currently utilized None * Additional services required to return to the preadmission environment? No * Can the patient safely return to the preadmission environment? Yes * Has this patient been hospitalized within the prior 30 days at any hospital? No Coverage Notice Reviewer: [id number] C Mackey Notice Issued Date-Time: 11/05/2019 11:35 Notice Type: IM Discharge Notice Notice Delivered To: Patient Relationship to Patient: Ampoule Filler And Sealer Name: Delivery Method: HAND - Hand Delivered Monalisa Days: Prior Verbal Notification: Recipient Understood Notice: Yes Recipient Signature: Yes Med Rec Note Co-signed by Attending: Coverage Notice Comment: Reviewer: [id number] C Mackey Notice Issued Date-Time: 11/06/2019 12:55 Notice Type: Patient Choice Letter Notice Delivered To: Patient Relationship to Patient: Ampoule Filler And Sealer Name: Delivery Method: HAND - Hand Delivered Monalisa Days: Prior Verbal Notification: Recipient Understood Notice: Yes Recipient Signature: Yes Med Rec Note Co-signed by Attending: Coverage Notice Comment: TAL Carrasco DP export: 11/14/19 12:59 Patient Name: NORI JAY Page [id number] at 1546 All edits/amendments must be made on the electronic document DICTATION DATE: 11/15/19 154 CANVAS SHRINKER: RUPAL 11/15/19 1545 RPT#: [id number] DC DATE: STATUS: ADM [facility] [address] [place] [address] END OF REPORT
[2019-11-15 16:17] VITALS: BP 143/72
--- NOTE | 2019-11-15 16:49 | NUR ---
OT NOTE: PT COMPLETED BED MOB WITH MOD A. PT COMPLETED BED TO CHAIR TRANSFER WITH MOD A. PT COMPLETED HAIR GROOMING WITH MIN A. PT EXHIBITED FUNCTIONAL UE AROM TO COMPLETE GROOMING TASKS. FAMILY PRESENT. FAMILY CONCERNED WITH BLOOD FROM RUE ON SHEET WONDERING IF FROM A BLOOD CLOT. NURSING IN ROOM AND ANSWERED FAMILY CONCERNS. [phone] THANK YOU, JOVITA NGUYỄN
--- NOTE | 2019-11-15 17:18 | NUR ---
UPON PUTTING PT BACK TO BED FROM CHAIR DR. ARORA ENTERED THE ROOM AND STATED HE WOULD COME BACK WHEN WE WERE DONE. 30 MINS GO BY AND FAMILY WAS WONDERING WHEN HE WOULD BE BACK. CALLED ON CELL PHONE, LEFT A MESSAGE TO CALL ME BACK. 30 MORE MINS GO BY AND STILL NO CALL BACK, SO I CALLED AGAIN AND SPOKE WITH HIM, HE STATED HE WAS ALREADY GONE FOR THE DAY. THIS WAS AT 1620. WILL CALL HALLIE AT 1730 TO SEE PT JOHN.
--- NOTE | 2019-11-15 18:05 | NUR ---
I have reviewed this patient and I concur with the Shift Assessment completed by the Licensed Practical Nurse today this shift.
--- NOTE | 2019-11-15 19:00 | NUR ---
PT SITTING UP IN VISITING WITH FAMILY. SHE ASKS IF SHE HAS ANY MIRALAX ORDERED. SHE DOES NOT. OFFERED TO CALL SENIOR COMMISSARY AGENT AND SHE DECLINED STATING SHE WILL ASK THE [employer] FOR IT TOMORROW MORNING WHEN THEY ROUND. REQUESTING XANAX WITH NIGHTTIME MEDICATIONS. DENIES PAIN OR NEEDS. BED LOW. CALL LIGHT IN REACH.
[2019-11-15 20:00] VITALS: BP 137/54
[2019-11-16 04:00] VITALS: BP 137/62
[2019-11-16 05:03] LABS: BASOPHILS 0 % (0-2); EOSINOPHILS 0 % (0-7); HEMOGLOBIN 9.6 g/dL (12-16); IMMATURE GRANULOCYTES 0.4 % (0-5); LYMPHOCYTES 2.2 % (15-50); MCH 27.6 pg (26.0-34.0); MCV 86.2 fL (80.0-100.0); MEAN PLATELET VOLUME 10.4 fL (7.4-10.4); MONOCYTES 3.6 % (2-11); NEUTROPHILS 93.8 % (40-80); PLATELET COUNT 132 10x3/uL (130-400); RBC 3.48 10x6/uL (4.00-5.40); RDW 16.4 % (11.5-14.5); WBC 10.5 10x3/uL (4.8-10.8)
[2019-11-16 05:32] LABS: CALC OSMOLALITY 295 mosm/kg (275-300); CALCIUM 8.6 mg/dL (8.5-10.1); CARBON DIOXIDE 29.7 mmol/L (21.0-32.0); CHLORIDE - SERUM 109 mmol/L (98-107); CREATININE - SERUM 0.7 mg/dL (0.6-1.3); GLUCOSE 120 mg/dL (74-106); POTASSIUM - SERUM 3.7 mmol/L (3.5-5.1); SODIUM 144 mmol/L (136-145); UREA NITROGEN 36 mg/dL (7-18); eGFR NON AFRICAN AMERICAN 85 mL/min (90-120)
[2019-11-16 06:01] LABS: PROTIME 63.8 SECONDS (11.6-15.0)
[2019-11-16 06:02] LABS: INR 7.64 (0.85-1.17)
--- NOTE | 2019-11-16 07:08 | NUR ---
MARITZA HENSON INFORMED OF CRITICAL LABS: PT 63.8 AND INR OF 7.64. ORDERS GIVEN TO HOLD COUMADIN AND REPEAT INR. WILL PUT ORDERS IN.
[2019-11-16 08:26] VITALS: BP 138/56
[2019-11-16 08:51] LABS: INR 7.78 (0.85-1.17); PROTIME 64.7 SECONDS (11.6-15.0)
--- NOTE | 2019-11-16 10:53 | NUR ---
ADMINISTERING ONE UNIT OF FFP NOW.
[2019-11-16 12:03] VITALS: BP 140/70
[2019-11-16 16:16] VITALS: BP 135/64
[2019-11-16 17:32] LABS: INR 1.75 (0.85-1.17); PROTIME 19.8 SECONDS (11.6-15.0)
--- NOTE | 2019-11-16 19:08 | NUR ---
RECEIVED UP IN BED WITH EYES OPEN AND FAMILY At BEDSIDE. ALERT AND ORIENTED X4. REMAIN ON BEDREST. DSG TO COCCYX CDI. F/C INTACT WITH CLEAR YELLOW URINE DRAINING TO BEDSIDE DRAINAGE BAG. IJ TO RIGHT SIDE OF NECK. TELEMETRY IN PLACE. RIGHT ARM ELEVATED D/T WEEPING EDEMA. DENIES ANY NEEDS AT THIS TIME.
[2019-11-16 20:00] VITALS: BP 172/74
--- NOTE | 2019-11-16 21:00 | NUR ---
C/O CHEST PAINS. WHEN ASSESSED STATED " I FEEL BASILIA SICK AT MY STOMACH". SYSTOLIC SLIGHTLY ELEVATED. MONITORS TECH REPORTS [address] [facility] GIVEN AND EKG COMPLETED. XANAX GIVEN FOR SEVERE ANXIETY. PT ALSO STATES " I FEEL LIKE IF I CAN JUST BURP I WILL BE ALRIGHT". WILL RE EVALUATE.
[2019-11-17] VITALS: BP 161/78
[2019-11-17 04:00] VITALS: BP 148/62
[2019-11-17 05:04] LABS: BASOPHILS 0 % (0-2); EOSINOPHILS 0 % (0-7); HEMATOCRIT 31.6 % (36.0-48.0); HEMOGLOBIN 9.8 g/dL (12-16); IMMATURE GRANULOCYTES 0.9 % (0-5); LYMPHOCYTES 5.3 % (15-50); MCV 87.1 fL (80.0-100.0); MEAN PLATELET VOLUME 10.2 fL (7.4-10.4); MONOCYTES 4.8 % (2-11); PLATELET COUNT 121 10x3/uL (130-400); RBC 3.63 10x6/uL (4.00-5.40); RDW 16.3 % (11.5-14.5); WBC 9.8 10x3/uL (4.8-10.8)
[2019-11-17 05:20] LABS: INR 1.34 (0.85-1.17)
[2019-11-17 05:21] LABS: ALBUMIN 2.3 g/dL (3.4-5.0); ALKALINE PHOSPHATASE 59 U/L (46-116); ALT (SGPT) 35 U/L (10-68); BILIRUBIN - TOTAL 0.48 mg/dL (0.2-1.3); CALCIUM 8.5 mg/dL (8.5-10.1); CARBON DIOXIDE 35.6 mmol/L (21.0-32.0); CHLORIDE - SERUM 108 mmol/L (98-107); GLUCOSE 97 mg/dL (74-106); PROTEIN - SERUM 5.5 g/dL (6.4-8.2); SODIUM 147 mmol/L (136-145)
[2019-11-17 05:23] LABS: CALC OSMOLALITY 295 mosm/kg (275-300); CREATININE - SERUM 0.5 mg/dL (0.6-1.3); POTASSIUM - SERUM 2.9 mmol/L (3.5-5.1); UREA NITROGEN 25 mg/dL (7-18); eGFR NON AFRICAN AMERICAN > 90 mL/min (90-120)
--- NOTE | 2019-11-17 07:30 | NUR ---
A/A/OX4. RESTING QUIETLY POSITIONED ON BACK AND VOICES NOT COMPLAINTS OR NEEDS AT PRESENT TIME. ASSESSMENT COMPLETED AND WILL CONTINUE POC. CALL LIGHT IN REACH AND BED IN LOW POSITION. FAMILY MEMBER AT BEDSIDE. PT REMAINS DNR STATUS. RESP EVEN AND UNLABORED WITH O2 ON VIA NC A 5 L/M.
[2019-11-17 08:19] VITALS: BP 155/72
--- NOTE | 2019-11-17 09:34 | NUR ---
PT C/O BURPING AND THINKING IT SMELLS LIKE BOWELS. GARRISON NOTIFIED AND ORDER RECEIVED FOR CT ABD AND PELVIS.
--- NOTE | 2019-11-17 13:55 | NUR ---
I have reviewed this patient and I concur with the Shift Assessment completed by the Licensed Practical Nurse today this shift.
--- NOTE | 2019-11-17 15:04 | NUR ---
GLYCERIN SUPPOSITORY GIVEN AND WILL GET PT UP ON BSC IN [place] 45 MINUTES TO SEE IF IT IS ANY HELP. HAS SMALL AMOUNT SOFT STOOL PRESENT WHEN SUPPOSITORY INSERTED.
--- NOTE | 2019-11-17 16:20 | NUR ---
UP TO BSC COMMODE AND UNABLE TO PASS ANY STOOL. ASST BACK TO BED AND PLACED ON LEFT SIDE AND SS ENEMA ADMINISTERED WITH GOOD RETURN OF DARK BROWN STOOL UNTIL LAST 300 CC AND IT WAS RETURNED WITH JUST A SLIGHT LIGHT TAVARES COLOR TO THE WATER. PT STATES SHE FEELS MUCH BETTER NOW. PT CLEANED AND LINENS CHANGED.
[2019-11-17 16:44] VITALS: BP 140/70
--- NOTE | 2019-11-17 17:13 | NUR ---
PRIOR TO SS ENEMA BEING GIVEN, REMOVED LARGE AMT LIGHT BROWN SOFT STOOL DIGITALLY. PT TOLERATED WELL WITH HEART RATE AND SPO2 LEVELS STAYING STEADY. SS ENEMA GIVEN AFTER IMPACTION REMOVED.
[2019-11-17 20:00] VITALS: BP 134/64
--- NOTE | 2019-11-17 20:30 | NUR ---
PT IS RESTING IN BED WITH EYES OPEN. ALERT AND ORIENTED X 3. DENIES ACUTE PAIN OR DISCOMFORT AT THIS TIME. PT STATES SHE FEELS 100 PERCENT BETTER AFTER HAVING A LARGE BOWEL MOVEMENT TODAY. PHILLIPS CATH IS PATENT AND DRAINING TO A GRAVITY BAG. RIGHT IJ IV NOTED. TELEMETRY UNIT IS ON AND INTACT. SR'S ARE UP X 3 IN BED. CALL LIGHT AND BEDSIDE TABLE ARE WITHIN EASY REACH. FAMILY MEMBER IS AT BEDSIDE.
--- NOTE | 2019-11-17 21:23 | NUR ---
PT IS RESTING QUIETLY IN BED WITH EYES CLOSED. RESPS ARE EVEN AND UNLABORED. NO ACUTE DISTRESS NOTED.
--- NOTE | 2019-11-17 23:54 | NUR ---
PT IS RESTING QUIETLY IN BED WITH EYES CLOSED. RESPS ARE EVEN AND UNLABORED. NO ACUTE DISTRESS NOTED.
--- NOTE | 2019-11-18 03:28 | NUR ---
PT RESTING IN BED WITH EYES CLOSED. RESPS ARE EVEN AND UNLABORED. NO ACUTE DISTRESS NOTED.
[2019-11-18 04:00] VITALS: BP 145/62
[2019-11-18 04:18] LABS: BASOPHILS 0.1 % (0-2); EOSINOPHILS 0.1 % (0-7); HEMATOCRIT 30.2 % (36.0-48.0); HEMOGLOBIN 9.4 g/dL (12-16); IMMATURE GRANULOCYTES 0.9 % (0-5); LYMPHOCYTES 7.1 % (15-50); MCH 27.7 pg (26.0-34.0); MCHC 31.1 g/dL (31.0-37.0); MEAN PLATELET VOLUME 10.7 fL (7.4-10.4); MONOCYTES 5.1 % (2-11); NEUTROPHILS 86.7 % (40-80); PLATELET COUNT 106 10x3/uL (130-400); RBC 3.39 10x6/uL (4.00-5.40); RDW 16.6 % (11.5-14.5)
[2019-11-18 04:32] LABS: MCV 89.1 fL (80.0-100.0); WBC 6.9 10x3/uL (4.8-10.8)
[2019-11-18 04:37] LABS: INR 1.3 (0.85-1.17); PROTIME 15.7 SECONDS (11.6-15.0)
[2019-11-18 04:44] LABS: ALBUMIN 2.1 g/dL (3.4-5.0); ALKALINE PHOSPHATASE 57 U/L (46-116); ALT (SGPT) 31 U/L (10-68); BILIRUBIN - TOTAL 0.51 mg/dL (0.2-1.3); CALC OSMOLALITY 293 mosm/kg (275-300); CALCIUM 8.5 mg/dL (8.5-10.1); CARBON DIOXIDE 35.7 mmol/L (21.0-32.0); CHLORIDE - SERUM 109 mmol/L (98-107); CREATININE - SERUM 0.6 mg/dL (0.6-1.3); GLUCOSE 71 mg/dL (74-106); POTASSIUM - SERUM 3.6 mmol/L (3.5-5.1); SODIUM 147 mmol/L (136-145); UREA NITROGEN 25 mg/dL (7-18); eGFR NON AFRICAN AMERICAN > 90 mL/min (90-120)
[2019-11-18 08:41] VITALS: BP 134/58
--- NOTE | 2019-11-18 09:03 | MORECARE ---
CASE MANAGEMENT DISCHARGE SUMMARY PATIENT: NORI JAY UNIT: [id number] ADM DATE: 10/27/19 AGE: 79 : 38 SEX: F ROOM/BED: D.2103 AUTHOR: SABI CORTES PHYSICIAN: REFERRING PHYSICIAN: JACOBO ARORA MD DATE OF SERVICE: 11/18/19 Discharge Plan Patient Name: NORI JAY Facility: [facility]:[place] : 1940 Planned Disposition: Senior Living Acute Care Facility Anticipated Discharge Date: 11/08/19 Discharge Date: Expected LOS: 12 Initial Reviewer: [id number] Initial Review Date: 11/06/2019 Generated: 11/18/19 10:03 am Comments DCP- Discharge Planning Updated by [id number]: Chacho Mackey on 11/15/19 2:[address] Patient Name: NORI JAY Encounter No: [id number] : 1940 Primary Insurance: MEDICARE A & B Anticipated DC Date: 11-08-2019 Planned Disposition: Senior Living Acute Care Facility External [facility] [place] DCP follow-up note: [facility], ; THEY DO NOT HAVE AVAILABLE BEDS AT THIS TIME. [facility] AT [phone]. CM WAITING AVAILABLE BED AT [facility]. LARRY Singer DCP- Discharge Planning Updated by [id number]: Chacho Mackey on 11/14/19 12:[address] Patient Name: NORI JAY Encounter No: [id number] : 1940 Primary Insurance: MEDICARE A & B Anticipated DC Date: 11-08-2019 Planned Disposition: Distributing Clerk Acute Care Facility External Planned Provider: [facility] [place] DCP follow-up note: [facility], ; THEY DO NOT HAVE AVAILABLE BEDS AT THIS TIME AND HAVE POSSIBLE DISCHARGES LATER THIS WEEK. [facility] AT [phone]. CM WAITING AVAILABLE BED AT [facility]. LARRY Singer DCP- Discharge Planning Updated by [id number]: Chacho Mackey on 11/12/19 9:[address] Patient Name: NORI JAY Encounter No: [id number] : 1940 Primary Insurance: MEDICARE A & B Anticipated DC Date: 11-08-2019 Planned Disposition: Senior Living Acute Care Facility External Planned Provider: [facility] DCP follow-up note: CM CALLED [facility], ; THEY DO NOT HAVE AVAILABLE BEDS AT THIS TIME AND HAVE POSSIBLE DISCHARGES LATER THIS WEEK. [facility] ADVISED TO FAX UPDATE ON 11-14-19. CM WAITING AVAILABLE BED AT [facility] FOR [facility]PER[facility]. CM TO FAX UPDATE 11-14-19 TO [facility]. LARRY Singer DCP- Discharge Planning Updated by [id number]: Chacho Mackey on 11/07/19 10:[address] Patient Name: NORI JAY Encounter No: [id number] : 1940 Primary Insurance: MEDICARE A & B Anticipated DC Date: 11-08-2019 Planned Disposition: Senior Living Acute Care Facility External Planned Provider: [facility] DCP follow-up note: CM RECEIVED CALL FROM [facility], THEY PLAN TO ACCEPT PT BUT DO NOT HAVE AVAILABLE BEDS AT THIS TIME. CM SPOKE TO PT IN ROOM, DISCUSSED [facility] FACILITIES OUT[place]IDE OF [place]. PT IS NOT WILLING TO BE PLACED IN [facility] [place]IDE [place]. PT IS WILLING TO WAIT FOR LTACH BED AT [facility]. CM NOTIFIED CARE TEAM MEMBERS AT [employer] TEAM MEETING. CM WAITING AVAILABLE BED AT [facility] FOR [facility]. LARRY Singer DCP- Discharge Planning Updated by [id number]: Chacho Mackey on 11/07/19 7:[address] Patient Name: NORI JAY Encounter No: [id number] : 1940 Primary Insurance: MEDICARE A & B Anticipated DC Date: 10-29-2019 Planned Disposition: Distributing Clerk Acute Care Facility External [facility] [place] [facility] follow-up note: CM FAXED REFERRAL UDPATE TO [facility] AT [phone]. CM WAITING ADMISSION DETERMINATION FROM [facility]. Chacho Mackey CASE MANAGEMENT DCP- Discharge Planning Updated by [id number]: Chacho Mackey on 11/06/19 10:[address] Patient Name: NORI JAY Encounter No: [id number] : 1940 Primary Insurance: MEDICARE A & B Anticipated DC Date: 10-29-2019 Planned Disposition: Senior Living Acute Care Facility External Planned Provider: [facility] [place] DCP follow-up note: CM FAXED REFERRAL UDPATE TO [facility] AT [phone]. CM WAITING ADMISSION DET[facility]MINATION [facility]. Chacho Mackey CASE ADA DCP- Discharge Planning Updated by [id number]: Chacho Mackey on 11/05/19 11:[address] Patient Name: NORI JAY Encounter No: [id number] : 1940 Primary Insurance: MEDICARE A & B Anticipated DC Date: 10-29-2019 Planned Disposition: Senior Living Acute Care Facility External Planned Provider: [facility] [place] [facility] follow-up note: CM RECEIVED ORDER FOR LTACH REFERRAL. CM MET WITH PT AND STEP DAUGHTER IN ROOM. NORI JAY provided verbal consent to discuss current and ongoing needs with/in the presence of: STEP DAUGHTER. CM DISCUSSED LTACH REFERRAL AND LTACH AVAILABILITIY. PT TEARFUL AND WAS HOPING SHE WOULD BE HOME FOR [place]. CM EXPLAINED TO PT THAT DR. ARORA FEELS PT WILL REQUIRE THREE WEEKS OF HOSPITALIZATION. PT STATES THAT THE DOCTOR IS "FULL OF SHIT". CM EXPLAINED THAT PT HAS BEEN VERY ILL AND THAT IT WOULD TAKE SOME TIME TO RECUPERATE AND GET PT'S OXYGEN NEEDS TO A LEVEL THAT CAN BE PROVIDED AT HOME FOR PT TO ACTUALLY GO HOME. PT REPORTS UNDERSTANDING, PT IN AGREEMENT WITH REFERRAL TO LTACH REFERRAL TO [facility] [place]. IMPORTANT MESSAGE FROM MEDICARE PROVIDED AND EXPLAINED. CM [facility]ED [facility], , LEFT DETAILED MESSAGE ASKING FOR ADMISSION DETERMINATION. CM FAXED REFERRAL TO [facility] AT [phone]. CM WAITING ADMISSION DETERMINATION FROM [facility]. Chacho Mackey , CASE MANAGEMENT DCP- Discharge Planning Updated by [id number]: Petra Durán on 10/27/19 2:[address] DC PLAN: Return home independently with her significant other. ANTICIPATED DC NEEDS: Denied known dc needs. CM met with patient to complete initial dc planning assessment. CM educated patient on the CM role and verbal consent given by patient to complete assessment. CM verified patient's address, phone number, and emergency contact phone numbers. Patient lives at home independently with her significant other. At discharge patient plans to return home and feels this is a safe discharge. CM discussed availability of home health, rehab services, and medical equipment. Patient denied known discharge needs at this time. Transportation provider at discharge will be Alfonzo. CM will continue to follow and will assist as needed with dc plans/needs. Petra Durán RN, [facility] DCPIA - Discharge Planning Initial Assessment Updated by [id number]: Chacho Mackey on 11/05/19 4:37 pm * Is the patient Alert and Oriented? Yes * How many steps to enter\\exit or inside your home? None * PCP Dr. Bethea * Pharmacy [facility] [address] [place] [phone] * Preadmission Environment Home with Family * ADLs Independent * Equipment Cane Nebulizer Oxygen * Other Equipment Home oxygen with portability. Chris is DME provider. * List name and contact numbers for known caregivers / representatives who currently or will assist patient after discharge: Alfonzo Beltran - herber other - [phone] WIL JAY, SON, HILARIOStew JAY, SON, * Verbal permission to speak to the caregivers and representatives has been obtained from the patient. Yes * Community resources currently utilized None * Additional services required to return to the preadmission environment? No * Can the patient safely return to the preadmission environment? Yes * Has this patient been hospitalized within the prior 30 days at any hospital? No External Providers External Provider: [facility] Next Contact Date: 11/05/2019 Service Request Date: Service Type: Resolution: Reviewer: Comments: Coverage Notice Reviewer: [id number] Mackey Notice Issued Date-Time: 11/05/2019 11:35 Notice Type: IM Discharge Notice Notice Delivered To: Patient Relationship to Patient: Bank Note Designer Name: Delivery Method: HAND - Hand Delivered Monalisa Days: Prior Verbal Notification: Recipient Understood Notice: Yes Recipient Signature: Yes Med Rec Note Co-signed by Attending: Coverage Notice Comment: Reviewer: SANDOVAL Mackey Notice Issued Date-Time: 11/06/2019 12:55 Notice Type: Patient Choice Letter Notice Delivered To: Patient Relationship to Patient: Bank Note Designer Name: Delivery Method: HAND - Hand Delivered Monalisa Days: Prior Verbal Notification: Recipient Understood Notice: Yes Recipient Signature: Yes Med Rec Note Co-signed by Attending: Coverage Notice Comment: [facility] Last DP export: 11/15/19 2:46 Patient Name: NORI JAY Page 53280 at 0903 All edits/amendments must be made on the electronic document DICTATION DATE: 11/18/19902 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
--- NOTE | 2019-11-18 09:10 | MORECARE ---
CASE MANAGEMENT DISCHARGE SUMMARY PATIENT: NORI JAY UNIT: [id number] ADM DATE: 10/27/19 AGE: 79 : 38 SEX: F ROOM/BED: D.2109 AUTHOR: SABI CORTES PHYSICIAN: REFERRING PHYSICIAN: JACOBO ARORA MD DATE OF SERVICE: 11/18/19 Discharge Plan Patient Name: NORI JAY Facility: [facility]:[place] : 1940 Planned Disposition: Custodial Acute Care Facility Anticipated Discharge Date: 11/08/19 Discharge Date: Expected LOS: 12 Initial Reviewer: [id number] Initial Review Date: 11/06/2019 Generated: 11/18/19 10:10 am Comments DCP- Discharge Planning Updated by [id number]: Chacho Mackey on 11/18/19 8:[address] Patient Name: NORI JAY Encounter No: [id number] : 1940 Primary Insurance: MEDICARE A & B Anticipated DC Date: 11-08-2019 Planned Disposition: Custodial Acute Care Facility External [facility] NOTE: CM FAXED UPDATE TO [facility] AT [phone]. CM WAITING AVAILABLE BED AT [facility] FOR EXPERIMENTAL PLASTICS FABRICATOR ACUTE CARE. LARRY Singer DCP- Discharge Planning Updated by [id number]: Chacho Mackey on 11/15/19 2:[address] Patient Name: NORI JAY Encounter No: [id number] : 1940 Primary Insurance: MEDICARE A & B Anticipated DC Date: 11-08-2019 Planned Disposition: Custodial Acute Care Facility External Planned Provider: [facility] [place] DCP follow-up note: CM CALLED [facility] [place], ; THEY DO NOT HAVE AVAILABLE BEDS AT THIS TIME. CM FAXED UPDATE TO [facility] AT [phone]. CM WAITING AVAILABLE BED AT [facility] FOR LONG-TERM ACUTE CARE. LARRY Singer MANAGEMENT DCP- Discharge Planning Updated by [email or web address]: Chacho Mackey on 11/14/19 12:[address] Patient Name: NORI JAY Encounter No: [id number] : 1940 Primary Insurance: MEDICARE A & B Anticipated DC Date: 11-08-2019 Planned Disposition: Community Health Counselor Acute Care Facility External Planned Provider: [facility] [place] DCP follow-up note: CM CALLED DANGELO ARAGON [facility], ; THEY DO NOT HAVE AVAILABLE BEDS AT THIS TIME AND HAVE POSSIBLE DISCHARGES LATER THIS WEEK. CM FAXED UPDATE TO [facility] AT [phone]. CM WAITING AVAILABLE BED AT [facility] FOR EXPERIMENTAL PLASTICS FABRICATOR ACUTE CARE. Chacho Mackey CASE MANAGEMENT DCP- Discharge Planning Updated by [id number]: Chacho Mackey on 11/12/19 9:[address] Patient Name: NORI JAY Encounter No: [id number] : 1940 Primary Insurance: MEDICARE A & B Anticipated DC Date: 11-08-2019 Planned Disposition: Community Health Counselor Acute Care Facility External Planned Provider: [facility] [place] DCP follow-up note: CM CALLED DANGELO ARAGON [facility], ; THEY DO NOT HAVE AVAILABLE BEDS AT THIS TIME AND HAVE POSSIBLE DISCHARGES LATER THIS WEEK. RANDY ADVISED TO FAX UPDATE ON 11-14-19. CM WAITING AVAILABLE BED AT [facility] FOR EXPERIMENTAL PLASTICS FABRICATOR ACUTE CARE. CM TO FAX UPDATE 11-14-19 TO [facility]. Chacho Mackey CASE MANAGEMENT DCP- Discharge Planning Updated by [id number]: Chacho Mackey on 11/07/19 10:[address] Patient Name: NORI JAY Encounter No: [id number] : 1940 Primary Insurance: MEDICARE A & B Anticipated DC Date: 11-08-2019 Planned Disposition: Community Health Counselor Acute Care Facility External Planned Provider: [facility] [place] DCP follow-up note: CM RECEIVED CALL FROM DANGELO RUTHAGNES [facility], THEY PLAN TO ACCEPT PT BUT DO NOT HAVE AVAILABLE BEDS AT THIS TIME. CM SPOKE TO PT IN ROOM, DISCUSSED EXPERIMENTAL PLASTICS FABRICATOR ACUTE CARE FACILITIES OUTSIDE OF [place]. PT IS NOT WILLING TO BE PLACED IN LONG-TERM ACUTE CARE OUTSIDE OF [place]. PT IS WILLING TO WAIT FOR LTACH BED AT [facility]. CM NOTIFIED CARE TEAM MEMBERS AT [facility] TEAM MEETING. CM WAITING AVAILABLE BED AT [facility] FOR EXPERIMENTAL PLASTICS FABRICATOR ACUTE CARE. Chacho Mackey CASE MANAGEMENT DCP- Discharge Planning Updated by [email or web address]: Chacho Mackey on 11/07/19 7:[address] Patient Name: NORI JAY Encounter No: [id number] : 1940 Primary Insurance: MEDICARE A & B Anticipated DC Date: 10-29-2019 Planned Disposition: Custodial Acute Care Facility External Planned Provider: [facility] [place] DCP follow-up note: CM FAXED REFERRAL UDPATE TO [facility] AT [phone]. CM WAITING ADMISSION DETERMINATION FROM [facility]. Chacho Mackey CASE ADA DCP- Discharge Planning Updated by [id number]: Chacho Mackey on 11/06/19 10:[address] Patient Name: NORI JAY Encounter No: [id number] : 1940 Primary Insurance: MEDICARE A & B Anticipated DC Date: 10-29-2019 Planned Disposition: Custodial Acute Care Facility External [facility] [place] [facility]CP follow-up note: CM FAXED REFERRAL UDPATE TO [facility] AT [phone]. CM WAITING ADMISSION DETERMINATION FROM [facility]. Chacho aMckey CASE MANAGEMENT DCP- Discharge Planning Updated by [id number]: Chacho Mackey on 11/05/19 11:[address] Patient Name: NORI JAY Encounter No: [id number] : 1940 Primary Insurance: MEDICARE A & B Anticipated DC Date: 10-29-2019 Planned Disposition: Community Health Counselor Acute Care Facility External Planned Provider: [facility] [place] DCP follow-up note: CM RECEIVED ORDER FOR LTACH REFERRAL. CM MET WITH PT AND STEP DAUGHTER IN ROOM. NORI JAY provided verbal consent to discuss current and ongoing needs with/in the presence of: STEP DAUGHTER. CM DISCUSSED LTACH REFERRAL AND LTACH AVAILABILITIY. PT TEARFUL AND WAS HOPING SHE WOULD BE HOME FOR [place]. CM EXPLAINED TO PT THAT DR. ARORA FEELS PT WILL REQUIRE THREE WEEKS OF HOSPITALIZATION. PT STATES THAT THE DOCTOR IS "FULL OF SHIT". CM EXPLAINED THAT PT HAS BEEN VERY ILL AND THAT IT WOULD TAKE SOME TIME TO RECUPERATE AND GET PT'S OXYGEN NEEDS TO A LEVEL THAT CAN BE PROVIDED AT HOME FOR PT TO ACTUALLY GO HOME. PT REPORTS UNDERSTANDING, PT IN AGREEMENT WITH REFERRAL TO LTACH [facility] [place]. IMPORTANT MESSAGE FROM MEDICARE PROVIDED AND EXPLAINED. [facility], , LEFT DETAILED MESSAGE ASKING FOR ADMISSION DETERMINATION. CM FAXED REFERRAL TO [facility] AT [phone]. CM WAITING ADMISSION DETERMINATION FROM [facility]. Chacho Mackey , CASE MANAGEMENT DCP- Discharge Planning Updated by [id number]: Petra Durán on 10/27/19 2:[address] DC PLAN: Return home independently with her significant other. ANTICIPATED DC NEEDS: Denied known dc needs. CM met with patient to complete initial dc planning assessment. CM educated patient on the CM role and verbal consent given by patient to complete assessment. CM verified patient's address, phone number, and emergency contact phone numbers. Patient lives at home independently with her significant other. At discharge patient plans to return home and feels this is a safe discharge. CM discussed availability of home health, rehab services, and medical equipment. Patient denied known discharge needs at this time. Transportation provider at discharge will be Alfonzo. CM will continue to follow and will assist as needed with dc plans/needs. Petra Durán RN, [facility] DCPIA - Discharge Planning Initial Assessment Updated by [id number]: Chacho Mackey on 11/05/19 4:37 pm * Is the patient Alert and Oriented? Yes * How many steps to enter\\exit or inside your home? None * PCP Dr. Bethea * Pharmacy [facility] [address] [place] [address] [phone] * Preadmission Environment Home with Family * ADLs Independent * Equipment Cane Nebulizer Oxygen * Other Equipment Home oxygen with portability. Chris is DME provider. * List name and contact numbers for known caregivers / representatives who currently or will assist patient after discharge: Alfonzo Ramaslin - sig [facility] - [phone] WIL JAY, SON, HILARIO JAY, SON, * Verbal permission to speak to the caregivers and representatives has been obtained from the patient. Yes * Community resources currently utilized None * Additional services required to return to the preadmission environment? No * Can the patient safely return to the preadmission environment? Yes * Has this patient been hospitalized within the prior 30 days at any hospital? No Coverage Notice Reviewer: [id number] C Mackey Notice Issued Date-Time: 11/05/2019 11:35 Notice Type: IM Discharge Notice Notice Delivered To: Patient Relationship to Patient: Line Maintenance Name: Delivery Method: HAND - Hand Delivered Monalisa Days: Prior Verbal Notification: Recipient Understood Notice: Yes Recipient Signature: Yes Med Rec Note Co-signed by Attending: Coverage Notice Comment: Reviewer: SANDOVAL Mackey Notice Issued Date-Time: 11/06/2019 12:55 Notice Type: Patient Choice Letter Notice Delivered To: Patient Relationship to Patient: Line Maintenance Name: Delivery Method: HAND - Hand Delivered Monalisa Days: Prior Verbal Notification: Recipient Understood Notice: Yes Recipient Signature: Yes Med Rec Note Co-signed by Attending: Coverage Notice Comment: TAL Carrasco DP export: 11/18/19 8:03 Patient Name: NORI JAY Page [phone] at 0910 All edits/amendments must be made on the electronic document DICTATION DATE: 11/18/19909 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
--- NOTE | 2019-11-18 12:02 | NUR ---
OT NOTE: PT REQUIRED INCREASED ASSIST WITH MOBILITY TODAY. BED MOB WITH MOD ASSIST X 2 TO GET TO EOB. SITTING BALANCE AND TOLERANCE ON EOB X APPORX 5 MIN. REQUIRED MAX ASSIST X 2 FOR SIT TO STAND X 4 ATTEMPTS. ON FINAL 2 ATTEMPTS, PT REQUIRED MANUAL ASSIST WITH KNEE EXTENSION. TRANSFER TO CHAIR WITH MAX ASSIST X 2.. PT BEARING WT THROUGH LES VERY LITTLE. STOOD WITH PT AGAIN WITH MAX ASSIST X 2 WHILE PERINEAL CARE WAS PROVIDED. PT RESISTANT TO USE PINK EGG CRATE CUSHION, BUT WHEN EXPLAINED THAT WE WOULD TURN IT OVER TO WHERE FLAT SIDE WAS FACING UP, SHE WAS AGREEABLE. EXTENSIVE ASSIST TO POSITION PT COMFORTABLY ON CUSHION. PROVIDED WASH CLOTH AND PT WAS ABLE TO WASH FACE, HANDS, AND UPPER ARMS...MAX ASSIST WITH BACK, STOMACH, AND LE. MIN ASSIST TO ANA CLEAN GOWN. SET UP TO BRUSH HAIR. EDUCATED ON UE/LE EXS TO BE PERFORMED WHILE IN CHAIR. MIRIAM STEPHENS, OTR/L [phone]
[2019-11-18 13:18] VITALS: BP 119/58
--- NOTE | 2019-11-18 14:24 | NUR ---
OT NOTE: PT COMMPLETED BED MOB TASKS WITH MOD A. PT COMPLETED SIT TO STAND WITH MOD X2. PT COMPLETED BED TO CHAIR TRANSFER WITH MAX A. PT COMPLETED FACE WASH AND HAIR GROOMING WITH SET UP IN CHAIR. PT COMPLETED BUE AROM AXS FOR INCREASED FUNCTIONAL INDEPENDENCE. PT REQUIRED INCREASED PHYSICAL ASSIST THIS AM. FAMILY PRESENT. [phone] THANK YOU,JOVITA NGUYỄN
--- NOTE | 2019-11-18 15:42 | NUR ---
EXCORIATION NOTED ON SACRAL AREA / BUTTOCKS. SKIN PEELING. F/C HAS BEEN PLACED WHICH IS HELPING TO DECREASE MOISTURE TO THE AREA. MEPILEX SACRAL DRESSING IS BEING USED FOR PROTECTION AND COMFORT. CALMOSEPTINE CREAM IS BEING APPLIED TO PERINEAL AREA REDNESS. PT'S GRAND DAUGHTER IS WITH HER AND HELPS KEEP HER TURNED/REPOSITIONED. WEDGES WERE PROVIDED FOR A MORE COMFORTABLE REPOSITIONING. WOUND CARE CONTINUES TO MONITOR.
[2019-11-18 18:10] VITALS: BP 153/72
--- NOTE | 2019-11-18 19:33 | NUR ---
EVENING ROUNDS COMPLETE, PT LAYING IN BED, FAMILY AT BEDSIDE. NO SIGNS OF DISTRESS. PT DENIES ANY PAIN OR NEEDS AT THIS TIME. CL IN REACH, BED IN LOWEST POSITION.
[2019-11-18 20:00] VITALS: BP 135/75
--- NOTE | 2019-11-18 23:55 | NUR ---
SUB COMPLAINTS OF MOUTH PAIN UNABLE TO TOLERATE BIPAP AT THIS TIME REFUSES
[2019-11-19] VITALS: BP 148/72
--- NOTE | 2019-11-19 02:50 | NUR ---
PAGED [address] VENDOR CARDIOLOGY FOR PT BEING IN UNCONTROLLED A-FIB. DR ARANDA RETURNED PAGE AND STATED TO DO EXACTLY WHAT WAS DONE LAST TIME PT WENT INTO [facility]. RENEWED ORDER FOR ONE TIME CARDIZEM 10MG BOLUS AND RENEWED ORDER FOR CARDIZEM DRIP 125MG @ 10 ML/HR.
--- NOTE | 2019-11-19 03:15 | NUR ---
PT TOLLERATED CARDIZEM BOLUS WELL, HR TO 120'S STILL IN [facility] AT THIS TIME. CARDIZEM DRIP STARTED AT 10ML/HR THROUGH PT RIGHT IJ. CL IN REACH, BED IN LOWEST POSITION.
--- NOTE | 2019-11-19 03:45 | NUR ---
PT REMAINS IN [facility] AT THIS TIME, HR OF 125.
[2019-11-19 04:00] VITALS: BP 131/89
[2019-11-19 05:40] LABS: BASOPHILS 0 % (0-2); EOSINOPHILS 0.9 % (0-7); HEMATOCRIT 31.2 % (36.0-48.0); HEMOGLOBIN 9.6 g/dL (12-16); IMMATURE GRANULOCYTES 0.8 % (0-5); LYMPHOCYTES 9.8 % (15-50); MCH 27.3 pg (26.0-34.0); MCHC 30.8 g/dL (31.0-37.0); MCV 88.6 fL (80.0-100.0); MEAN PLATELET VOLUME 10.5 fL (7.4-10.4); MONOCYTES 4.3 % (2-11); NEUTROPHILS 84.2 % (40-80); PLATELET COUNT 103 10x3/uL (130-400); RBC 3.52 10x6/uL (4.00-5.40); RDW 16.7 % (11.5-14.5); WBC 6.4 10x3/uL (4.8-10.8)
[2019-11-19 06:23] LABS: INR 1.17 (0.85-1.17); PROTIME 14.3 SECONDS (11.6-15.0)
[2019-11-19 06:53] LABS: ALBUMIN 2.1 g/dL (3.4-5.0); ALKALINE PHOSPHATASE 57 U/L (46-116); ALT (SGPT) 36 U/L (10-68); BILIRUBIN - TOTAL 0.55 mg/dL (0.2-1.3); CALC OSMOLALITY 289 mosm/kg (275-300); CALCIUM 8.4 mg/dL (8.5-10.1); CARBON DIOXIDE 33.4 mmol/L (21.0-32.0); CHLORIDE - SERUM 107 mmol/L (98-107); CREATININE - SERUM 0.5 mg/dL (0.6-1.3); POTASSIUM - SERUM 3.3 mmol/L (3.5-5.1); PROTEIN - SERUM 5.3 g/dL (6.4-8.2); SODIUM 145 mmol/L (136-145); UREA NITROGEN 21 mg/dL (7-18); eGFR NON AFRICAN AMERICAN > 90 mL/min (90-120)
[2019-11-19 06:56] LABS: GLUCOSE 68 mg/dL (74-106)
[2019-11-19 07:36] VITALS: BP 130/85
--- NOTE | 2019-11-19 07:55 | MORECARE ---
CASE MANAGEMENT DISCHARGE SUMMARY PATIENT: NORI JAY UNIT: [id number] ADM DATE: 10/27/19 AGE: 79 : 38 SEX: F ROOM/BED: D.2103 AUTHOR: SABI CORTES PHYSICIAN: REFERRING PHYSICIAN: JACOBO ARORA MD DATE OF SERVICE: 11/19/19 Discharge Plan Patient Name: NORI JAY Facility: [facility]:[place] : 1940 Planned Disposition: Inpatient Rehab Anticipated Discharge Date: 11/08/19 Discharge Date: Expected LOS: 12 Initial Reviewer: [id number] Initial Review Date: 11/06/2019 Generated: 11/19/19 8:55 am Comments DCP- Discharge Planning Updated by [id number]: Chacho Mackey on 11/18/19 8:[address] Patient Name: NORI JAY Encounter No: [id number] : 1940 Primary Insurance: MEDICARE A & B Anticipated DC Date: 11-08-2019 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 CM WAITING AVAILABLE BED AT [facility] FOR HOUSEHOLD CHORES ACUTE CARE. LARRY Singer DCP- Discharge Planning Updated by [id number]: Chacho Mackey on 11/15/19 2:[address] Patient Name: NORI JAY Encounter No: [id number] : 1940 Primary Insurance: MEDICARE A & B Anticipated DC Date: 11-08-2019 Planned Disposition: Care Home Acute Care Facility External [facility] DCP follow-up note: CM CALLED [facility] [place], ; THEY DO NOT HAVE AVAILABLE BEDS AT THIS TIME. [facility] AT [phone]. CM WAITING AVAILABLE BED AT [facility] FOR CORRECTION ACUTE CARE. LARRY Singer MANAGEMENT DCP- Discharge Planning Updated by [id number]: Chacho Mackey on 11/14/19 12:[address] Patient Name: NORI JAY Encounter No: [id number] : 1940 Primary Insurance: MEDICARE A & B Anticipated DC Date: 11-08-2019 Planned Disposition: Care Home Acute Care Facility External Planned Provider: [facility] [place] DCP follow-up note: CM CALLED DANG[facility]O [facility]AG[facility], ; THEY DO NOT HAVE AVAILABLE BEDS AT THIS TIME AND HAVE POSSIBLE DISCHARGES LATER THIS WEEK. CM FAXED UPDATE TO [facility] AT [phone]. CM WAITING AVAILABLE BED AT [facility] FOR HOUSEHOLD CHORES ACUTE CARE. Chacho Mackey CASE MANAGEMENT DCP- Discharge Planning Updated by [id number]: Chacho Mackey on 11/12/19 9:[address] Patient Name: NORI JAY Encounter No: [id number] : 1940 Primary Insurance: MEDICARE A & B Anticipated DC Date: 11-08-2019 Planned Disposition: Care Home Acute Care Facility External Planned Provider: [facility] [place] DCP follow-up note: CM CALLED DANGELO ARAGON [facility], ; THEY DO NOT HAVE AVAILABLE BEDS AT THIS TIME AND HAVE POSSIBLE DISCHARGES LATER THIS WEEK. RANDY ADVISED TO FAX UPDATE ON 11-14-19. CM WAITING AVAILABLE BED AT [facility] FOR HOUSEHOLD CHORES ACUTE CARE. CM TO FAX UPDATE 11-14-[address] [facility]. 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 CM SPOKE TO PT IN ROOM, DISCUSSED CORRECTION ACUTE CARE FACILITIES OUTSIDE OF [place]. PT IS NOT WILLING TO BE PLACED IN CORRECTION ACUTE CARE OUTSIDE OF [place]. PT IS WILLING TO WAIT FOR LTACH BED AT [facility]. CM NOTIFIED CARE TEAM MEMBERS AT [facility] TEAM MEETING. CM WAITING AVAILABLE BED AT [facility] FOR HOUSEHOLD CHORES ACUTE CARE. Chacho Mackey CASE MANAGEMENT DCP- Discharge Planning Updated by [id number]: Chacho Mackey on 11/07/19 7:[address] Patient Name: NORI JAY Encounter No: [id number] : 1940 Primary Insurance: MEDICARE A & B Anticipated DC Date: 10-29-2019 Planned Disposition: Care Home Acute Care Facility External Planned Provider: [facility] [place] DCP follow-up note: CM FAXED REFERRAL UDPATE TO [facility] AT [phone]. CM WAITING ADMISSION DETERMINATION FROM [facility]. 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 CM WAITING ADMISSION DETERMINATION FROM [facility]. 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 CM MET WITH PT AND STEP DAUGHTER IN ROOM. NORI JAY provided verbal consent to discuss current and ongoing needs with/in the presence of: STEP DAUGHTER. CM DISCUSSED LTACH REFERRAL AND LTACH AVAILABILITIY. PT TEARFUL AND WAS HOPING SHE WOULD BE HOME FOR [place]. CM EXPLAINED TO PT THAT DR. ARORA FEELS PT WILL REQUIRE THREE WEEKS OF HOSPITALIZATION. PT STATES THAT THE DOCTOR IS "FULL OF SHIT". CM EXPLAINED THAT PT HAS BEEN VERY ILL AND THAT IT WOULD TAKE SOME TIME TO RECUPERATE AND GET PT'S OXYGEN NEEDS TO A LEVEL THAT CAN BE PROVIDED AT HOME FOR PT TO ACTUALLY GO HOME. PT REPORTS UNDERSTANDING, PT IN AGREEMENT WITH REFERRAL TO [facility] [place]. IMPORTANT MESSAGE FROM MEDICARE PROVIDED AND EXPLAINED. CM CALLED RANDY OF [facility], , LEFT DETAILED MESSAGE ASKING FOR ADMISSION DETERMINATION. CM FAXED REFERRAL TO [facility] AT [phone]. CM WAITING ADMISSION DETERMINATION FROM [facility]. Chacho Mackey , CASE MANAGEMENT DCP- Discharge Planning Updated by [id number]: Petra Durán on 10/27/19 2:[address] DC PLAN: Return home independently with her significant other. ANTICIPATED DC NEEDS: Denied known dc needs. CM met with patient to complete initial dc planning assessment. CM educated patient on the CM role and verbal consent given by patient to complete assessment. CM verified patient's address, phone number, and emergency contact phone numbers. Patient lives at home independently with her significant other. At discharge patient plans to return home and feels this is a safe discharge. CM discussed availability of home health, rehab services, and medical equipment. Patient denied known discharge needs at this time. Transportation provider at discharge will be Alfonzo. CM will continue to follow and will assist as needed with dc plans/needs. Petra Durán RN, [facility] DCPIA - Discharge Planning Initial Assessment Updated by [email or web address]: Chacho Mackey on 11/05/19 4:37 pm * Is the patient Alert and Oriented? Yes * How many steps to enter\\exit or inside your home? None * PCP Dr. Bethea * Pharmacy [facility] [address] [place] [phone] * Preadmission Environment Home with Family * ADLs Independent * Equipment Cane Nebulizer Oxygen * Other Equipment Home oxygen with portability. Chris is DME provider. * List name and contact numbers for known caregivers / representatives who currently or will assist patient after discharge: Alfonzo Ramaslin - sig [facility] - [phone] WIL JAY, SON, HILARIO JAY, SON, * Verbal permission to speak to the caregivers and representatives has been obtained from the patient. Yes * Community resources currently utilized None * Additional services required to return to the preadmission environment? No * Can the patient safely return to the preadmission environment? Yes * Has this patient been hospitalized within the prior 30 days at any hospital? 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 Name: Delivery Method: HAND - Hand Delivered Monalisa Days: Prior Verbal Notification: Recipient Understood Notice: Yes Recipient Signature: Yes Med Rec Note Co-signed by Attending: Coverage Notice Comment: Reviewer: SANDOVAL Mackey Notice Issued Date-Time: 11/06/2019 12:55 Notice Type: Patient Choice Letter Notice Delivered To: Patient Relationship to Patient: Metal Riveting Machine Operator Name: Delivery Method: HAND - Hand Delivered Monalisa Days: Prior Verbal Notification: Recipient Understood Notice: Yes Recipient Signature: Yes Med Rec Note Co-signed by Attending: Coverage Notice Comment: TAL Carrasco DP export: 11/18/19 8:10 Patient Name: NORI JAY Page [phone] at 0755 All edits/amendments must be made on the electronic document DICTATION DATE: 11/19/19 075 PIPELINE CONSTRUCTION INSPECTOR: RUPAL 11/19/19 0755 RPT#: [id number] DC DATE: STATUS: ADM IN [facility] [address] [place] [address] END OF REPORT
--- NOTE | 2019-11-19 10:02 | NUR ---
Nutrition Follow-up: Not eating well. Noted 0% yesterday per chart. Noted CT A/P showed distended colon with gas and stool. Diet: Cardiac, Boost TID PO intake: 0-50% Wt: 151# (11/19); 152# (11/14); 145.5# (10/28) Last BM: 11/17 per chart Labs noted: K+ 3.3, Glu 68, Ca 8.4, Alb 2.1, Na 145 Meds noted: Miralax, Prednisone, Nystatin -Rec appetite stimulant; may consider nutrition support 2/2 ongoing poor PO intake. -RD following.
--- NOTE | 2019-11-19 11:15 | NUR ---
ALERT AND ORIENTED X4. ASSIST REPOSITION IN BED. SINUS RYTHM 78 WITH PACs ON TELEMETRY. DC CARDIZEM DRIP PER ORDERED. DENIES ANY NEEDS AT THIS TIME. CONTINUE PLAN OF CARE AND SAFETY PRECAUTIONS.
[2019-11-19 11:34] VITALS: BP 131/57
--- NOTE | 2019-11-19 13:11 | NUR ---
Rehab Prescreening Consult recieved and the chart has been reviewed. She meets ARU criteria and is agreeable to participate in the required therapy. Earlier today she was in [facility] at 140 and a cardiology consult has been ordered. She will be accepted when she is medically stable for discharge to rehab. Discussed with the CM Ezekiel Mackey. Marielle Crawford RN Clinical Liaison, Rehab
[2019-11-19] MEDS ORDERED: Xopenex 0.63 MG INH INH (14:18)
[2019-11-19] MEDS ORDERED: Nystatin Oral Susp [ PO (14:18)
[2019-11-19] MEDS ORDERED: BROVANA15 MCG/2 M INH (14:18)
[2019-11-19] MEDS ORDERED: COUMADIN3 MG PO (14:20)
[2019-11-19] MEDS ORDERED: MULTAQ400 MG PO (14:20)
[2019-11-19] MEDS ORDERED: NORVASC10 MG PO (14:20)
[2019-11-19] MEDS ORDERED: CATAPRES0.1 MG PO (14:21)
[2019-11-19] MEDS ORDERED: SINGULAIR10 MG PO (14:22)
[2019-11-19] MEDS ORDERED: PULMICORT0.5 MG/21 UPD (14:22)
[2019-11-19] MEDS ORDERED: MUCINEX DM ER1 EAC1 PO (14:22)
[2019-11-19] MEDS ORDERED: TESSALON PERLE100 MG PO (14:22)
[2019-11-19] MEDS ORDERED: XANAX0.25 MG PO (14:23)
[2019-11-19] MEDS ORDERED: DALIRESP250 MCG PO (14:23)
[2019-11-19] MEDS ORDERED: FLORAJEN3 CAPS460 MG PO (14:23)
[2019-11-19] MEDS ORDERED: PROTONIX40 MG PO (14:24)
[2019-11-19] MEDS ORDERED: CALMOSEPTINE OI71 GM TOPICAL (14:24)
[2019-11-19] MEDS ORDERED: MIRALAX17 GM PO (14:24)
[2019-11-19] MEDS ORDERED: NYSTATIN1 PWD TOPICAL (14:24)
[2019-11-19 15:11] VITALS: BP 147/69
--- NOTE | 2019-11-19 17:20 | MORECARE ---
CASE MANAGEMENT DISCHARGE SUMMARY PATIENT: NORI JAY UNIT: [id number] ADM DATE: 10/27/19 AGE: 79 : 38 SEX: F ROOM/BED: D.2101 AUTHOR: SEBASTIANDOC PHYSICIAN: REFERRING PHYSICIAN: JACOBO ARORA MD DATE OF SERVICE: 11/19/19 Discharge Plan Patient Name: NORI JAY Facility: [facility]:[place] : 1940 Planned Disposition: Inpatient Rehab Anticipated Discharge Date: 11/19/19 Discharge Date: Expected LOS: 23 Initial Reviewer: [id number] Initial Review Date: 11/06/2019 Generated: 11/19/19 6:19 pm DCP- Discharge Planning Updated by [id number]: Chacho Mackey on 11/18/19 8:[address] Patient Name: NORI JAY Encounter No: [id number] : 1940 Primary Insurance: MEDICARE A & B Anticipated DC Date: 11-08-2019 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 CM WAITING AVAILABLE BED AT [facility]. 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 [facility] AT [phone]. CM WAITING AVAILABLE BED AT [facility]. Chacho Mackey CASE MANAGEMENT DCP- Discharge Planning Updated by [id number]: Chacho Mackey on 11/14/19 12:[address] Patient Name: NORI JAY Encounter No: [id number] : 1940 Primary Insurance: MEDICARE A & B Anticipated DC Date: 11-08-2019 Planned Disposition: Mcc Acute Care Facility External [facility] DCP follow-up note: CM CALLED [facility], ; THEY DO NOT HAVE AVAILABLE BEDS AT THIS TIME AND HAVE POSSIBLE DISCHARGES LATER THIS WEEK. CM FAXED UPDATE TO [facility] AT [phone]. CM WAITING AVAILABLE BED AT [facility]. 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 RANDY ADVISED TO FAX UPDATE ON 11-14-19. CM WAITING AVAILABLE BED AT [facility]. CM TO FAX UPDATE 11-14-19 TO [facility]. Chacho Mackey CASE MANAGEMENT DCP- Discharge Planning Updated by [id number]: Chacho Mackey on 11/07/19 10:[address] Patient Name: NORI JAY Encounter No: [id number] : 1940 Primary Insurance: MEDICARE A & B Anticipated DC Date: 11-08-2019 Planned Disposition: Mcc Acute Care Facility External Planned Provider: [facility] DCP follow-up note: CM RECEIVED CALL FROM [facility], THEY PLAN TO ACCEPT PT BUT DO NOT HAVE AVAILABLE BEDS AT THIS TIME. CM SPOKE TO PT IN ROOM, DISCUSSED FOOD MIXER ACUTE CARE FACILITIES OUTSIDE OF [place]. PT IS NOT WILLING TO BE PLACED IN SKILLED NURSING ACUTE CARE OUTSIDE OF [place]. PT IS WILLING TO WAIT FOR LTACH BED AT [facility]. CM NOTIFIED CARE TEAM MEMBERS AT [facility] DISCIPLINARY TEAM MEETING. CM WAITING AVAILABLE BED AT [facility]. 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 CM WAITING ADMISSION DETERMINATION FROM [facility]. 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 CM WAITING ADMISSION DETERMINATION FROM [facility]. Chacho Mackey CASE MANAGEMENT DCP- Discharge Planning Updated by [email or web address]: Chacho Mackey on 11/05/19 11:[address] Patient Name: NORI JAY Encounter No: [id number] : 1940 Primary Insurance: MEDICARE A & B Anticipated DC Date: 10-29-2019 Planned Disposition: Mcc Acute Care Facility External Planned Provider: [facility] [place] DCP follow-up note: CM RECEIVED ORDER FOR LTACH REFERRAL. CM MET WITH PT AND STEP DAUGHTER IN ROOM. NORI JAY provided verbal consent to discuss current and ongoing needs with/in the presence of: STEP DAUGHTER. CM DISCUSSED LTACH REFERRAL AND LTACH AVAILABILITIY. PT TEARFUL AND WAS HOPING SHE WOULD BE HOME FOR [place]. CM EXPLAINED TO PT THAT DR. ARORA FEELS PT WILL REQUIRE THREE WEEKS OF HOSPITALIZATION. PT STATES THAT THE DOCTOR IS "FULL OF SHIT". CM EXPLAINED THAT PT HAS BEEN VERY ILL AND THAT IT WOULD TAKE SOME TIME TO RECUPERATE AND GET PT'S OXYGEN NEEDS TO A LEVEL THAT CAN BE PROVIDED AT HOME FOR PT TO ACTUALLY GO HOME. PT REPORTS UNDERSTANDING, PT IN AGREEMENT WITH REFERRAL TO LT[facility] [place] IMPORTANT MESSAGE FROM MEDICARE PROVIDED AND EXPLAINED. CM CALLED [facility]ANDY OF [facility], , LEFT DETAILED MESSAGE ASKING FOR ADMISSION DETERMINATION. CM FAXED REFERRAL TO [facility] AT [phone]. CM WAITING ADMISSION DETERMINATION FROM [facility]. Chacho Mackey , CASE MANAGEMENT DCP- Discharge Planning Updated by [id number]: Petra Durán on 10/27/19 2:[address] DC PLAN: Return home independently with her significant other. ANTICIPATED DC NEEDS: Denied known dc needs. CM met with patient to complete initial dc planning assessment. CM educated patient on the CM role and verbal consent given by patient to complete assessment. CM verified patient's address, phone number, and emergency contact phone numbers. Patient lives at home independently with her significant other. At discharge patient plans to return home and feels this is a safe discharge. CM discussed availability of home health, rehab services, and medical equipment. Patient denied known discharge needs at this time. Transportation provider at discharge will be Alfonzo. CM will continue to follow and will assist as needed with dc plans/needs. Petra Durán RN, [facility] DCPIA - Discharge Planning Initial Assessment Updated by [email or web address]: Chacho Mackey on 11/05/19 4:37 pm * Is the patient Alert and Oriented? Yes * How many steps to enter\\exit or inside your home? None * PCP Dr. Bethea * Pharmacy [facility] [address] [place] [id number] * Preadmission Environment Home with Family * ADLs Independent * Equipment Cane Nebulizer Oxygen * Other Equipment Home oxygen with portability. Chris is DME provider. * List name and contact numbers for known caregivers / representatives who currently or will assist patient after discharge: Alfonzo Beltran - [facility] [place] other - [phone] WIL JAY, SON, HILARIO JAY, SON, * Verbal permission to speak to the caregivers and representatives has been obtained from the patient. Yes * Community resources currently utilized None * Additional services required to return to the preadmission environment? No * Can the patient safely return to the preadmission environment? Yes * Has this patient been hospitalized within the prior 30 days at any hospital? 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 Name: Delivery Method: HAND - Hand Delivered Monalisa Days: Prior Verbal Notification: Recipient Understood Notice: Yes Recipient Signature: Yes Med Rec Note Co-signed by Attending: Coverage Notice Comment: Reviewer: [id number] Mackey Notice Issued Date-Time: 11/06/2019 12:55 Notice Type: Patient Choice Letter Notice Delivered To: Patient Relationship to Patient: Timber Packer Name: Delivery Method: HAND - Hand Delivered Monalisa Days: Prior Verbal Notification: Recipient Understood Notice: Yes Recipient Signature: Yes Med Rec Note Co-signed by Attending: Coverage Notice Comment: [facility] Reviewer: [id number] Jovani Vizcarra Notice Issued Date-Time: 11/19/2019 17:15 Notice Type: Patient Choice Letter Notice Delivered To: Family Member Relationship to Patient: Timber Packer Name: NIECE Delivery Method: HAND - Hand Delivered Monalisa Days: Prior Verbal Notification: Recipient Understood Notice: Yes Recipient Signature: Yes Med Rec Note Co-signed by Attending: Coverage Notice Comment: [facility] Reviewer: [id number] Jovani Mackey Notice Issued Date-Time: 11/19/2019 10:05 Notice Type: IM Discharge Notice Notice Delivered To: Family Member Relationship to Patient: Niece Timber Packer Name: ZACHARY LOGAN Delivery Method: HAND - Hand Delivered Monalisa Days: Prior Verbal Notification: Recipient Understood Notice: Yes Recipient Signature: Yes Med Rec Note Co-signed by Attending: Coverage Notice Comment: Last DP export: 11/19/19 6:55 Patient Name: NORI JAY Page 39078 at 1720 All edits/amendments must be made on the electronic document DICTATION DATE: 11/19/191718 INTE[employer]ATED MARKETING INTERN: RUPAL 11/19/191718 RPT#: [id number] DC DATE: STATUS: ADM IN [facility] [address] [place] [address] END OF REPORT
--- NOTE | 2019-11-19 17:28 | MORECARE ---
CASE MANAGEMENT DISCHARGE SUMMARY PATIENT: NORI JAY UNIT: [id number] ADM DATE: 10/27/19 AGE: 79 : 38 SEX: F ROOM/BED: D.2577 AUTHOR: SABI CORTES PHYSICIAN: REFERRING PHYSICIAN: JACOBO ARORA MD DATE OF SERVICE: 11/19/19 Discharge Plan Patient Name: NORI JAY Facility: [facility]:[place] : 1940 Planned Disposition: Inpatient Rehab Anticipated Discharge Date: 11/19/19 Discharge Date: Expected LOS: 23 Initial Reviewer: [id number] Initial Review Date: 11/06/2019 Generated: 11/19/19 6:28 pm Comments DCP- Discharge Planning Updated by [email or web address]: Chacho Mackey on 11/19/19 4:[address] Patient Name: NORI JAY Encounter No: [id number] : 1940 Primary Insurance: MEDICARE A & B Anticipated DC Date: 11-19-2019 Planned Disposition: Inpatient Rehab External Planned Provider: [facility] DCP follow-up note: CM SPOKE TO [facility] [place], THEY ARE NOT GOING TO ACCEPT PT SHE NO LONGER QUALIFIES FOR LTACH. CM MET WITH PT AND SPOKE TO HER SON VIA PHONE. ALL IN AGREEMENT FOR REHAB AND WILL ACCEPT REHAB AT [place]. CHOICE SIGNED BY ZACHARY STALEY IN ROOM AT PT'S REQUEST. CM SPOKE TO ROULA OF INPATIENT REHAB, THEY PLAN TO ACCEPT PT [facility]. PT NOTIFIED, IN AGREEMENT WITH DISCHARGE TO INPATIENT REHAB. IMPORTANT MESSAGE FROM MEDICARE PROVIDED AND EXPLAINED. STERILIZATION SPECIALIST NURSE NOTIFIED. MARITZA NUNEZ NOTIFIED. [facility] INPATIENT REHAB TO CONTACT MED 2 NURSE WITH ROOM NUMBER WHEN READY TO ACCEPT PT AND NURSE REPORT. LARRY Singer DCP- Discharge Planning Updated by [id number]: Chacho Mackey on 11/18/19 8:[address] Patient Name: NORI JAY Encounter No: [id number] : 1940 Primary Insurance: MEDICARE A & B Anticipated DC Date: 11-08-2019 Planned Disposition: Snf Acute Care Facility External Planned Provider: [facility] [place] DISCHARGE PLANNING NOTE: CM FAXED UPDATE TO [facility] AT [phone]. CM WAITING AVAILABLE BED AT [facility]. LARRY Singer MANAGEMENT DCP- Discharge Planning Updated by [id number]: Chacho Mackey on 11/15/19 2:[address] Patient Name: NORI JAY Encounter No: [id number] : 1940 Primary Insurance: MEDICARE A & B Anticipated DC Date: 11-08-2019 Planned Disposition: Steam Fitter Supervisor Maintenance Acute Care Facility External Planned Provider: [facility] [place] DCP follow-up note: CM CALLED [facility], ; THEY DO NOT HAVE AVAILABLE BEDS AT THIS TIME. [facility] AT [phone]. CM WAITING AVAILABLE BED AT [facility]. Chacho Mackey CASE MANAGEMENT DCP- Discharge Planning Updated by [id number]: Chacho Mackey on 11/14/19 12:[address] Patient Name: NORI JAY Encounter No: [id number] : 6 Primary Insurance: MEDICARE A & B Anticipated DC Date: 11-08-2019 Planned Disposition: Snf Acute Care Facility External Planned Provider: [facility] [place] DCP follow-up note: CM CALLED [facility], ; THEY DO NOT HAVE AVAILABLE BEDS AT THIS TIME AND HAVE POSSIBLE DISCHARGES LATER THIS WEEK. CM [facility] AT [phone]. CM WAITING AVAILABLE BED AT [facility]. Chacho Mackey CASE MANAGEMENT DCP- Discharge Planning Updated by [email or web address]: Chacho Mackey on 11/12/19 9:[address] Patient Name: NORI JAY Encounter No: [id number] : 1940 Primary Insurance: MEDICARE A & B Anticipated DC Date: 11-08-2019 Planned Disposition: Snf Acute Care Facility External Planned Provider: [facility] DCP follow-up note: CM CALLED RANDY OF [facility], ; THEY DO NOT HAVE AVAILABLE BEDS AT THIS TIME AND HAVE POSSIBLE DISCHARGES LATER THIS WEEK. RANDY ADVISED TO FAX UPDATE ON 11-14-19. CM WAITING AVAILABLE BED AT [facility]. CM TO FAX UPDATE 11-14-[address] [facility]. LARRY Singer DCP- Discharge Planning Updated by [id number]: Chacho Mackey on 11/07/19 10:[address] Patient Name: NORI JAY Encounter No: [id number] : 1940 Primary Insurance: MEDICARE A & B Anticipated DC Date: 11-08-2019 Planned Disposition: Snf Acute Care Facility External Planned Provider: [facility] DCP follow-up note: CM RECEIVED CALL FROM [facility] OF [facility], THEY PLAN TO ACCEPT PT BUT DO NOT HAVE AVAILABLE BEDS AT THIS TIME. CM SPOKE TO PT IN ROOM, DISCUSSED ALF ACUTE CARE FACILITIES OUTSIDE OF [place]. PT IS NOT WILLING TO BE PLACED IN PILE OPERATOR ACUTE CARE OUTSIDE OF [place]. PT IS WILLING TO WAIT FOR LTACH BED AT [facility]. CM NOTIFIED CARE TEAM MEMBERS AT [facility] DISCIPLINARY TEAM MEETING. CM WAITING AVAILABLE BED AT [facility]. LARRY Singer DCP- Discharge Planning Updated by [id number]: Chacho Mackey on 11/07/19 7:[address] Patient Name: NORI JAY Encounter No: [id number] : 1940 Primary Insurance: MEDICARE A & B Anticipated DC Date: 10-29-2019 Planned Disposition: Steam Fitter Supervisor Maintenance Acute Care Facility External Planned Provider: [facility] DCP follow-up note: CM FAXED REFERRAL UDPATE TO [facility] AT [phone]. CM WAITING ADMISSION DETERMINATION FROM [facility]. LARRY Singer DCP- Discharge Planning Updated by [id number]: Chacho Mackey on 11/06/19 10:[address] Patient Name: NORI JAY Encounter No: [id number] : 1940 Primary Insurance: MEDICARE A & B Anticipated DC Date: 10-29-2019 Planned Disposition: Steam Fitter Supervisor Maintenance Acute Care Facility External Planned Provider: [facility] [place] DCP follow-up note: CM FAXED REFERRAL UDPATE TO [facility] AT [phone]. CM WAITING ADMISSION DETERMINATION FROM [facility]. Chacho Mackey CASE MANAGEMENT DCP- Discharge Planning Updated by [email or web address]: Chacho Mackey on 11/05/19 11:[address] Patient Name: NORI JAY Encounter No: [id number] : 1940 Primary Insurance: MEDICARE A & B Anticipated DC Date: 10-29-2019 Planned Disposition: Steam Fitter Supervisor Maintenance Acute Care Facility External Planned Provider: [facility] [place] DCP follow-up note: CM RECEIVED ORDER FOR LTACH REFERRAL. CM MET WITH PT AND STEP DAUGHTER IN ROOM. NORI JAY provided verbal consent to discuss current and ongoing needs with/in the presence of: STEP DAUGHTER. CM DISCUSSED LTACH REFERRAL AND LTACH AVAILABILITIY. PT TEARFUL AND WAS HOPING SHE WOULD BE HOME FOR [place]. CM EXPLAINED TO PT THAT DR. ARORA FEELS PT WILL REQUIRE THREE WEEKS OF HOSPITALIZATION. PT STATES THAT THE DOCTOR IS "FULL OF SHIT". CM EXPLAINED THAT PT HAS BEEN VERY ILL AND THAT IT WOULD TAKE SOME TIME TO RECUPERATE AND GET PT'S OXYGEN NEEDS TO A LEVEL THAT CAN BE PROVIDED AT HOME FOR PT TO ACTUALLY GO HOME. PT REPORTS UNDERSTANDING, PT IN AGREEMENT WITH REFERRAL TO LTACH [facility]AL TO [facility] [place]. IMPORTANT MESSAGE FROM MEDICARE PROVIDED AND EXPLAINED. [facility] , LEFT DETAILED MESSAGE ASKING FOR ADMISSION DETERMINATION. CM FAXED REFERRAL TO [facility] AT [phone]. CM WAITING ADMISSION DETERMINATION FROM [facility]. Chacho Mackey , CASE MANAGEMENT DCP- Discharge Planning Updated by [id number]: Petra Durán on 10/27/19 2:[address] DC PLAN: Return home independently with her significant other. ANTICIPATED DC NEEDS: Denied known dc needs. CM met with patient to complete initial dc planning assessment. CM educated patient on the CM role and verbal consent given by patient to complete assessment. CM verified patient's address, phone number, and emergency contact phone numbers. Patient lives at home independently with her significant other. At discharge patient plans to return home and feels this is a safe discharge. CM discussed availability of home health, rehab services, and medical equipment. Patient denied known discharge needs at this time. Transportation provider at discharge will be Alfonzo. CM will continue to follow and will assist as needed with dc plans/needs. Petra Durán RN, [facility] DCPIA - Discharge Planning Initial Assessment Updated by SANDOVAL: Chacho Mackey on 11/05/19 4:37 pm * Is the patient Alert and Oriented? Yes * How many steps to enter\\exit or inside your home? None * PCP Dr. Bethea * Pharmacy [facility] [address] [place] [phone] * Preadmission Environment Home with Family * ADLs Independent * Equipment Cane Nebulizer Oxygen * Other Equipment Home oxygen with portability. Chris is DME provider. * List name and contact numbers for known caregivers / representatives who currently or will assist patient after discharge: Alfonzo Beltran - [facility] - [phone] WIL JAY, SON, HILARIO JAY, SON, * Verbal permission to speak to the caregivers and representatives has been obtained from the patient. Yes * Community resources currently utilized None * Additional services required to return to the preadmission environment? No * Can the patient safely return to the preadmission environment? Yes * Has this patient been hospitalized within the prior 30 days at any hospital? No Coverage Notice Reviewer: [id number] Jovani Mackey Notice Issued Date-Time: 11/05/2019 11:35 Notice Type: IM Discharge Notice Notice Delivered To: Patient Relationship to Patient: Propagation Manager Name: Delivery Method: HAND - Hand Delivered Monalisa Days: Prior Verbal Notification: Recipient Understood Notice: Yes Recipient Signature: Yes Med Rec Note Co-signed by Attending: Coverage Notice Comment: Reviewer: [id number] C Mackey Notice Issued Date-Time: 11/06/2019 12:55 Notice Type: Patient Choice Letter Notice Delivered To: Patient Relationship to Patient: Propagation Manager Name: Delivery Method: HAND - Hand Delivered Monalisa Days: Prior Verbal Notification: Recipient Understood Notice: Yes Recipient Signature: Yes Med Rec Note Co-signed by Attending: Coverage Notice Comment: [facility] Reviewer: [id number] Jovani Vizcarra Notice Issued Date-Time: 11/19/2019 17:15 Notice Type: Patient Choice Letter Notice Delivered To: Family Member Relationship to Patient: Propagation Manager Name: NIECE Delivery Method: HAND - Hand Delivered Monalisa Days: Prior Verbal Notification: Recipient Understood Notice: Yes Recipient Signature: Yes Med Rec Note Co-signed by Attending: Coverage Notice Comment: [facility] Reviewer: [id number] Jovani Mackey Notice Issued Date-Time: 11/19/2019 10:05 Notice Type: IM Discharge Notice Notice Delivered To: Family Member Relationship to Patient: Niece Propagation Manager Name: ZACHARY LOGAN Delivery Method: HAND - Hand Delivered Monalisa Days: Prior Verbal Notification: Recipient Understood Notice: Yes Recipient Signature: Yes Med Rec Note Co-signed by Attending: Coverage Notice Comment: Last DP export: 11/19/19 4:20 Patient Name: NORI JAY Page 62455 at 1728 All edits/amendments must be made on the electronic document DICTATION DATE: 11/19/191727 BEAUTY PARLOR CLEANER: RUPAL 11/19/191727 RPT#: [id number] DC DATE: STATUS: ADM IN [facility] [address] [place] [address] END OF REPORT
--- NOTE | 2019-11-19 17:52 | NUR ---
ALERT AND ORIENTED X4. RESTING IN BED. DISCHARGE INSTRUCTIONS GIVEN VERBALLY AND WRITTEN. DISCHARGE PAPERS SIGNED ON CHART. RT IJ SL LEFT. PHILLIPS DRAINING BY GRAVITY SECURED TO INNER THIGH. SINUS RYTHM WITH PACs ON TELEMETRY. REPORT CALLED TO [facility] IN REHAB. TAKEN TO ROOM 1112A VIA BED. REMAINS FREE FROM INJURY.
--- NOTE | 2019-11-20 10:02 | EC ---
PATIENT:NORI JAY DATE OF SERVICE: 10/27/19 SEX: F MEDICAL RECORD: [id number] DATE OF : 38 LOCATION:D.M2 D.210 AGE OF PATIENT: 79 ADMISSION DATE: 10/27/19 REFERRING PHYSICIAN: INTERPRETING PHYSICIAN: BANDAR ARANDA MD ECHOCARDIOGRAM REPORT ECHO CHARGES 4 ECHO COMPLETE Date: 11/19/19 CLINICAL DIAGNOSIS: AFIB ECHOCARDIOGRAPHIC MEASUREMENTS (adult normal given) AC root (d.<3.7cm) 1.7 cm LV Septum d (<1.2 cm> 1.1 cm Valve Excursion 1.2 cm LV Septum (systole) 1.2 cm Left Atria (s.<4.0cm> 3.4 cm LVPW d(<1.2cm) 1.0 cm RV (d.<2.3cm) 2.5 cm LVPW (sytole) 1.3 cm LV diastole(<5.6CM) 4.4 cm MV E-F(>70mm/sec) cm LV systole 3.7 cm LVOT Diameter 1.7 cm MV exc.(>10mm) cm Est.ejection fraction (50-75%) % DOPPLER: LVIT cm/sec A 106 cm/sec E 59 cm/sec LA cm/sec RVSP 41.0 mmHg LVOT 120 cm/sec AOP1/2T m/s Asc. Ao 211 cm/sec RVOT 93 cm/sec RA cm/sec PA 102 cm/sec AV Gradient Peak 17.8 mmHg AV Mean 9.8 mmHg AV Area 1.4 cm MV Gradient Peak 10.3 mmHg MV Mean 3.4 mmHg MV Area cm COMMENTS: Cartography Professor: Jonnathan JAMES Electroencephalograph Technologist: 3 Dr. Zepeda TAPE# PACS Pericardial Effusion N DATE OF SERVICE: Adequate 2D, color flow imaging, spectral Doppler, and M-mode. No LVH. LV internal dimension is normal. LV appears to be mildly globally hypo with EF mildly reduced at 40% to 45%. Aortic valve calcified with minimal restriction of leaflet motion. Peak gradient 17 mm, regular rhythm, very mild range. Left atrium is normal at 3.4 cm. Mitral valve shows no prolapse. Trace MR. Right-sided chambers grossly normal. Mild TR. ECHOCARDIOGRAM REPORT [id number] NORI JAY TRANSINT:[id number] Voice Confirmation ID: [id number] DOCUMENT ID: [id number] BANDAR ARANDA MD at 1002 CC: [id number] DICTATION DATE: 11/19/19 1329 DRAFTER MECHANICAL: 11/19/192202 DIS IN 11/19/19 [place] [id number] [place] [id number]
--- NOTE | 2019-11-20 10:02 | CN ---
PATIENT NAME:NORI JAY MEDICAL RECORD: [id number] : 36 LOCATION:D. D.2101 ADMIT DATE: 10/27/19 ACCOUNT: [id number] CONSULTING PHYSICIAN: BANDAR ARANDA MD REFERRING PHYSICIAN: JACOBO ARORA MD DATE OF CONSULTATION: 11/19/2019 HISTORY OF PRESENT ILLNESS: This is an 79-year-old female with a history of obstructive pulmonary disease, DVT, chronic respiratory failure, on home O2, admitted with respiratory failure. She has had somewhat a protracted course, has been in ICU, she is actually improving. She is noted to have intermittent atrial fibrillation at this point. The atrial fibrillation is symptomatic with no palpitations, fluttering. She is on Coumadin for her DVT. We are asked to see her concerning her cardiovascular status. PAST MEDICAL HISTORY: 1. History of obstructive pulmonary disease. 2. Chronic respiratory failure, O2 dependent. 3. Hypertension. 4. Dyslipidemia. 5. Hypothyroidism, on replacement. MEDICATIONS: At home typically include albuterol 1 puff q.4, Coumadin per scale, Norvasc 2.5 every day, lisinopril 10 b.i.d., Crestor 5 every day, Neurontin 100 b.i.d., Synthroid 50 mcg every day. SOCIAL HISTORY: Lives at home, good family support, does have difficulty taking care of her ADLs. REVIEW OF SYSTEMS: The patient reports easy bruising but reports no swollen glands. The patient reports no fever, no night sweats, no significant weight gain, no significant weight loss. No significant exercise tolerance. The patient reports no dry eyes, no irritation, no vision change. Patient reports no difficulty hearing and no ear pain. Patient reports no frequent nose bleeds or nose and sinus problems. Patient reports on arm pain on exertion. No shortness of breath while lying down. No history of heart murmur. Patient reports no cough, no wheezing or coughing up blood. Patient reports no abdominal pain, no vomiting. Normal appetite. No diarrhea and not vomiting blood. No nausea and no constipation. Patient reports no incontinence. No difficulty urinating. No hematuria. No increased frequency. Patient reports no muscle aches. No weakness, no arthralgias, no back pain. No swelling of the extremities. Patient reports no abnormal mole, no jaundice, no rashes. Reports no loss of consciousness. No weakness and no numbness. No seizures, dizziness, or headaches. The patient reports no depression, no sleep disturbance, feeling safe in a relationship and no alcohol abuse. Patient reports on fatigue. Reports no runny nose or sinus pressure. No itching, no hives, and no frequent sneezing. PHYSICAL EXAMINATION: GENERAL: Chronically ill-appearing, in no acute distress. VITAL SIGNS: Blood pressure 130/85, pulse currently 105. Occasional extrasystole. HEENT: Normocephalic, atraumatic. NECK: No bruits noted. HEART: Regular, occasional extrasystole, II/ systolic ejection murmur. CONSULT REPORT [id number] NORI JAY LUNGS: Prolonged respiratory phase, few expiratory wheezes. ABDOMEN: Soft, nontender. EXTREMITIES: Pulse 2+. No edema. IMPRESSION: Paroxysmal atrial fibrillation, on Coumadin, so CVA prophylaxis is not an issue at this point. We will add Multaq for arrhythmia control. Further recommendations based on above. TRANSINT:[id number] Voice Confirmation ID: [id number] DOCUMENT ID: [id number] BANDAR ARANDA MD at 1002 CC: [id number] DICTATION DATE: 11/19/19 0856 AUTO JOB ESTIMATOR: 11/19/19 1149 DIS IN 11/19/19 [facility] [address] [place] [address]
== END 2019-11-19 17:54 | DRG 189 ==
LOC: D.ER 11:43 → D.ICU 13:48 → D.M2 13:48 → D.SDCHOLD 11-05 10:23 → D.M2 11-11 11:10
PROVIDERS: Emergency Medicine; Internal Medicine Pulmonary Disease; ADMIT Internal Medicine Nephrology; ATTEND Internal Medicine Nephrology
PROC: 5A09557 Assistance with Respiratory Ventilation, Greater than 96 Consecutive Hours, Continuous Positive Airway Pressure (ICD-10-PCS; principal; 2019-10-27)
PROC: 05HM33Z Insertion of Infusion Device into Right Internal Jugular Vein, Percutaneous Approach (ICD-10-PCS; 2019-11-12)
PROC: 05HY33Z Insertion of Infusion Device into Upper Vein, Percutaneous Approach (ICD-10-PCS; 2019-11-12)
DX: J96.22 Acute and chronic respiratory failure with hypercapnia (principal); J44.1 Chronic obstructive pulmonary disease with (acute) exacerbation; E87.1 Hypo-osmolality and hyponatremia; I82.409 Acute embolism and thrombosis of unspecified deep veins of unspecified lower extremity; K56.7 Ileus, unspecified; G72.81 Critical illness myopathy; J44.0 Chronic obstructive pulmonary disease with (acute) lower respiratory infection; J96.21 Acute and chronic respiratory failure with hypoxia; G62.9 Polyneuropathy, unspecified; D50.9 Iron deficiency anemia, unspecified; M35.3 Polymyalgia rheumatica; E03.9 Hypothyroidism, unspecified; I10 Essential (primary) hypertension; Z66 Do not resuscitate; J20.9 Acute bronchitis, unspecified; R53.81 Other malaise; Z79.01 Long term (current) use of anticoagulants; K56.41 Fecal impaction; R60.1 Generalized edema; K80.20 Calculus of gallbladder without cholecystitis without obstruction; R33.9 Retention of urine, unspecified

== ENCOUNTER 2019-11-19 17:21 | Inpatient (IN) | payer MEDICARE ==
[~2019-11-19] VITALS: Ht 157.5 cm; Wt 59.0 kg
--- NOTE | ~2019-11-19 | RHP ---
PATIENT: NORI JAY MEDICAL RECORD: [id number] ACCOUNT: [id number] LOCATION:[facility]1112 : 38 ADMISSION DATE: 11/19/19 REHABILITATION HISTORY AND PHYSICAL EXAMINATION POST ADMISSION PHYSICIAN EXAMINATION POST-ADMISSION PHYSICAL EXAMINATION AND HISTORY AND PHYSICAL DATE OF ADMISSION: 11/19/2019. ADMITTING DIAGNOSIS: Critical illness myopathy. HISTORY OF PRESENT ILLNESS: The patient is an 79-year-old female patient who has a past medical history of COPD, chronic hypoxic respiratory failure, asthma, neuropathy, hypothyroidism, hypertension, history of tobacco use, polymyalgia rheumatica and DVT, on chronic Coumadin, who presented with worsening dyspnea on exertion, bronchitic cough with productive phlegm, was seen in the ED on 10/27/2019, with increased shortness of breath and associated chest tightness with use of accessory muscles. The patient was seen at the walk-in clinic on 10/26/2019, given IV antibiotics, steroids and sent home on antibiotics. She was admitted to ICU with acute hypoxic respiratory failure, COPD exacerbation and placed on BiPAP. Cardiology was consulted. She was found to be in paroxysmal atrial fib. She is already on Coumadin for previous DVT, been seen in follow up by pulmonary, treated with and responded well. She has required BiPAP and Vapotherm during her stay, increased O2 usage, been seen and followed by both speech therapy and physical therapy throughout her stay. She is currently on telemetry monitoring closely for uncontrolled AFib. She is requiring additional supplemental O2, updraft nebulizer. She is on electrolyte protocol proximal muscle weakness, deconditioning, debility, gait disturbance, impaired mobility and high fall risk and self-care deficits. These are her barriers to her discharge home. Lives at home with her significant other, was independent with mobility using a single point cane if needed, was independent with her ADLs, currently set up for max assist with ADLs, mod to max assist for mobility. She and her family planning for return home at her prior level of functioning or better. COMORBIDITIES: Include [id number] hypoxic respiratory failure, neuropathy, polymyalgia rheumatica, hypothyroidism, hypertension, microcytic anemia, hyponatremia, respiratory distress, CO2 retention, got a history of atelectasis, cholelithiasis, chronic respiratory failure, O2 dependence and hypothyroidism. PAST MEDICAL HISTORY: Significant for neuropathy, vertigo at times, cataracts. She had a history of dysphagia, history of hypertension, angina, history of DVT in the past, history of known coronary artery disease, COPD, and musculoskeletal pain. PAST SURGICAL HISTORY: Includes cataracts and tonsillectomy and adenoidectomy. ALLERGIES: SULFA, NEOSPORIN, CODEINE, TETANUS, ALLOPURINOL, LIPITOR, BIAXIN, COLCHICINE, METHOTREXATE, AND QUININE. CURRENT MEDICATIONS: Include Synthroid 50 mcg daily. She is on warfarin 3 mg daily. She is on Floranex 460 mg daily. She is on Crestor 5 mg 3 times weekly. She is on Daliresp 250 mcg daily. She is on calcium 500 mg daily, amlodipine HISTORY AND PHYSICAL [id number] PIERRE,NORI R 10 mg daily, Multaq 400 mg b.i.d. with meals, ipratropium bromide 0.5 mg q.i.d. She is on Brovana updrafts 15 mcg b.i.d., budesonide 0.5 mg b.i.d., Protonix 40 mg daily, polyethylene glycol 17 grams in 8 ounces of water daily, Nystatin 5 cc before meals and at bedtime, Singulair 10 mg at bedtime, Zestril 20 mg b.i.d., Mucinex 1 tab b.i.d., clonidine 0.1 mg t.i.d. p.r.n., Tessalon Perles 100 mg t.i.d., Xanax 0.5 mg t.i.d. p.r.n. She is on Nitrostat powder as needed, nitroglycerin sublingual as needed, and Calmoseptine p.r.n. HABITS: No alcohol or tobacco use. FAMILY HISTORY: Noncontributory. SOCIAL HISTORY: The patient hopes to return back home and get back to her prior level of functioning. REVIEW OF SYSTEMS: GENERAL: Does complain of some weakness and fatigue. HEENT: Denies cold, cough, or congestion. CARDIOVASCULAR: Denies any chest pain. PHYSICAL EXAMINATION: VITAL SIGNS: Stable, afebrile. GENERAL: An elderly female in no acute distress, alert upon exam. HEENT: Normocephalic and atraumatic. Mucosa moist. NECK: Supple. No lymphadenopathy. LUNGS: Clear in [place], although decreased breath sounds in the bases. HEART: Irregular rate and rhythm. ABDOMEN: Soft, benign, and nondistended. Positive bowel sounds times 4. EXTREMITIES: No clubbing, cyanosis or edema. NEUROLOGIC: She is slow to mentate, but mainly intact. LABORATORY DATA: Admit blood counts; her white count was 5.2, H&H 9.6 and 30.5 and platelet count is 98. Her sodium is 146, potassium 3.7, BUN and creatinine of 22 and 0.4 and blood sugar is noted to be 60. ASSESSMENT: This is an 79-year-old female patient admitted to rehab with a working diagnosis of critical illness myopathy. The patient has potential to make improvement. We instituted the following multidisciplinary therapies including but not limited to physical, occupational, respiratory, speech, nutritional services, prosthetics and orthotics. Given her complex medical condition and risk for more complications, rehabilitation services cannot be provided at a low level of care such as skilled nurse facility. PLAN: 1. Admit to [facility] for intensive inpatient therapy to include the following disciplines: A. Physical therapy to improve gait, all transfer skills and bed mobility to a modified independent level. B. Occupational therapy to improve activities of daily living. C. Case management to assist with discharge planning and placement options. D. Nutrition to assist with nutritional needs. E. Rehabilitation nursing to assist in monitoring the patient's underlying medical conditions and to assist with any type of bowel or bladder management. 2. The patient's current medication and medical care will be continued. 3. The patient will be placed on standard fall precautions. HISTORY AND PHYSICAL [id number] NORI JAY 4. The patient estimated length of stay is approximately 7-10 days. 5. We will discuss this patient during care team staff meeting this week. TRANSINT:[id number] Voice Confirmation ID: [id number] DOCUMENT ID: [id number] 11/25/2019 Edited for aaron HUYNH. LINO notes whether there has been none or any medical/functional change since admission: - No change since preadmission screen. LINO attests patient continues to be appropriate for IRF: - Continues to be appropriate. AMAURY CALDERÓN MD CC: [id number] DICTATION DATE: 11/20/191756 BROTHEL KEEPER: 11/20/192156 DIS IN 11/22/19 [facility] [address] [facility] [place] [address]
[~2019-11-19 17:21] MED LIST changes: +BROVANA15 MCG/2 M INH; +CALMOSEPTINE OI71 GM TOPICAL; +CATAPRES0.1 MG PO; +COUMADIN3 MG PO; +DALIRESP250 MCG PO; +FLORAJEN3 CAPS460 MG PO; +MIRALAX17 GM PO; +MUCINEX DM ER1 EAC1 PO; +MULTAQ400 MG PO; +NORVASC10 MG PO; +NORVASC2.5 MG PO; +NYSTATIN1 PWD TOPICAL; +Nystatin Oral Susp [ PO; +PROTONIX40 MG PO; +PULMICORT0.5 MG/21 UPD; +SINGULAIR10 MG PO; +TESSALON PERLE100 MG PO; +XANAX0.25 MG PO; +Xopenex 0.63 MG INH INH
--- NOTE | 2019-11-19 18:03 | NUR ---
ADMIT TO ROOM 1112A. AIR MATTRESS. ALERT AND ORIENTED. 4L O2 NC. CL IN REACH.
--- NOTE | 2019-11-19 19:07 | NUR ---
GREETED PATIENT AND INTRODUCED MYSELF HER NURSE. PATIENT IS LAYING IN BED IN SUPINE POSITION. HOB AT 35 DEGREES. O2 AT 4L VIA NC. RESPIRATIONS EVEN. NO S/S OF DISTRESS. CALL LIGHT IN REACH. FAMILY MEMBER AT BEDSIDE.
[2019-11-19 21:13] VITALS: BP 125/67
[2019-11-19 22:22] VITALS: BP 125/67; BMI 23.8
--- NOTE | 2019-11-20 00:45 | NUR ---
PT. AWAKE AND RESTING QUIETLY. O2 AT 4L IN USE VIA NC. RESPIRATIONS EVEN. NO S/S OF DISTRESS. FAMILY MEMBER AT BEDSIDE. CALL LIGHT IN REACH
[2019-11-20 04:34] LABS: APPEARANCE HAZY (CLEAR); BILIRUBIN NEGATIVE (NEGATIVE); COLOR YELLOW (YELLOW); GLUCOSE NEGATIVE (NEGATIVE); KETONE NEGATIVE (NEGATIVE); NITRITE NEGATIVE (NEGATIVE); PROTEIN 2+ mg/dL (NEGATIVE); UROBILINOGEN NORMAL (NORMAL)
[2019-11-20 04:36] LABS: BACTERIA FEW /hpf (NEGATIVE); EPITHELIAL CELLS 0-5 /hpf (0-5)
[2019-11-20 06:14] LABS: BASOPHILS 0 % (0-2); EOSINOPHILS 0.8 % (0-7); HEMATOCRIT 30.5 % (36.0-48.0); HEMOGLOBIN 9.6 g/dL (12-16); IMMATURE GRANULOCYTES 0.8 % (0-5); LYMPHOCYTES 9.9 % (15-50); MCH 27.8 pg (26.0-34.0); MCHC 31.5 g/dL (31.0-37.0); MCV 88.4 fL (80.0-100.0); MEAN PLATELET VOLUME 10.2 fL (7.4-10.4); MONOCYTES 4.4 % (2-11); NEUTROPHILS 84.1 % (40-80); PLATELET COUNT 98 10x3/uL (130-400); RBC 3.45 10x6/uL (4.00-5.40); RDW 16.9 % (11.5-14.5); WBC 5.2 10x3/uL (4.8-10.8)
[2019-11-20 06:19] LABS: CALC OSMOLALITY 291 mosm/kg (275-300); CALCIUM 8.5 mg/dL (8.5-10.1); CARBON DIOXIDE 33.4 mmol/L (21.0-32.0); CHLORIDE - SERUM 107 mmol/L (98-107); CREATININE - SERUM 0.4 mg/dL (0.6-1.3); POTASSIUM - SERUM 3.7 mmol/L (3.5-5.1); SODIUM 146 mmol/L (136-145); UREA NITROGEN 22 mg/dL (7-18); eGFR NON AFRICAN AMERICAN > 90 mL/min (90-120)
--- NOTE | 2019-11-20 06:20 | NUR ---
PT. AWAKE AND LAYING IN BED WATCHING TV. O2 AT 4L IN USE VIA NC. RESPIRATIONS EVEN. NO S/S OF DISTRESS. FAMILY MEMBER AT BEDSIDE. CALL LIGHT IN REACH.
[2019-11-20 06:25] LABS: GLUCOSE 60 mg/dL (74-106)
[2019-11-20 08:00] VITALS: BP 156/83
[2019-11-20 08:50] LABS: PLATELET ESTIMATE DECREASED
[2019-11-20 08:52] LABS: ANISOCYTOSIS 1+; CRENATED CELLS OCC
--- NOTE | 2019-11-20 10:08 | NUR ---
GRAND DAUGHTER REMAINS IN ROOM WITH PATIENT. PATIENT IS ON A FIRST STEP MATTRESS. CALL LIGHT WITHIN REACH. VOICES NO NEEDS AT THIS TIME. WILL CONTINUE WITH PLAN OF CARE
--- NOTE | 2019-11-20 15:57 | NUR ---
PATIENTS GRAND DAUGHTER REMAINS IN ROOM. PATIENT VOICES NO NEEDS AT THIS TIME.
--- NOTE | 2019-11-20 19:13 | NUR ---
GREETED PATIENT AND CLEANED PT. OF INCONTINENT BM. COMPLETE BED CHANGE. REPOSITIONED FOR COMFORT. CALL LIGHT IN REACH. FAMILY MEMBER AT BEDSIDE.
[2019-11-20 19:45] VITALS: BP 130/69
--- NOTE | 2019-11-20 22:09 | NUR ---
PT. RESTING QUIETLY WITH NC AT 4L IN USE. RESPIRATIONS EVEN. NO S/S OF DISTRESS. FAMILY MEMBER AT BEDSIDE. CALL LIGHT IN REACH.
--- NOTE | 2019-11-21 00:36 | NUR ---
PT. RESTING QUIETLY WITH EYES CLOSED. BIPAP IN USE. RESPIRATIONS EVEN. NO S/S OF DISTRESS. FAMILY MEMBER AT BEDSIDE. CALL LIGHT IN REACH.
[2019-11-21 06:36] LABS: INR 1.35 (0.85-1.17); PROTIME 16.1 SECONDS (11.6-15.0)
[2019-11-21 08:00] VITALS: BP 110/37; BP 150/64
--- NOTE | 2019-11-21 09:44 | NUR ---
SPOKE WITH PATIENT FAMILY AND THEY ARE REQUESTING FOR PATIENT TO BE DISCHARGED TODAY. A REFERRAL TO [facility] HAS BEEN FAXED. WILL CONTINUE TO FOLLOW WITH PATIENT.
--- NOTE | 2019-11-21 10:07 | NUR ---
LAYING IN BED ON SIDE. HAS BEEN UP WITH THERAPY THIS AM. BUTTOCKS COVERED WTIH CALMOSEPTINE, MEPILEX DSG WILL NOT STAY STUCK TO BUTTOCKS AREA AND KEEPS GETTING COVERED WITH STOOL DUE TO PT DIARRHEA. HER SKIN IS TENDER WHERE PREVIOUS MEPILEX HAS BEEN PULLED OFF. F/C PATENT WITH CLOUDY URINE. AIR MATTRESS ON BED. SHE USES BIPAP NEEDED AND OXYGEN 2LNC ALSO. GRAND WATKINS STAYS IN ROOM WITH PT AND ASST IN HER CARE.
--- NOTE | 2019-11-21 11:55 | NUR ---
LAYING ON SIDE IN BED IN ROOM. WEARING OXYGEN AND NOT BIPAP AT PRESENT. CALL LIGHT IN REACH
[2019-11-21 13:48] VITALS: Ht 157.5 cm; Wt 59.0 kg
--- NOTE | 2019-11-21 17:21 | NUR ---
LAYING ON SIDE IN ROOM. GRAND DTR WITH HER. F/C PATENT WITH CLOUDY URINE.. STILL WEARING OXYGEN NC. BIPAP USED NEEDED.
--- NOTE | 2019-11-21 19:48 | NUR ---
AWAKE AND ALERT. RESTING IN BED. REQUEST BI-PAP REMOVED. BIPAP PLACED ON STANDBY AND O2/3L PLACED ON PER NASAL CANNULA. ASK FOR TEA AND TEA PROVIDED. RESTING IN BED WITH HOB ELEVATED. FAMILY IN ROOM.
[2019-11-21 20:24] VITALS: BP 115/63
--- NOTE | 2019-11-22 00:05 | NUR ---
SLEEPING IN BED WITH BIPAP ON. NO DISTRESS NOTED. GRANDAUGHTER AT BEDIDE.
--- NOTE | 2019-11-22 05:32 | NUR ---
TURNED AND REPOSITIONED. HAS REMOVED BIPAP AND HAS O2/3L ON PER NASAL CANNULA. FOELY PATENT. ИВАН AT BEDSIDE.
[2019-11-22 05:47] LABS: BASOPHILS 0 % (0-2); EOSINOPHILS 3.7 % (0-7); HEMATOCRIT 30.6 % (36.0-48.0); HEMOGLOBIN 9.4 g/dL (12-16); IMMATURE GRANULOCYTES 1.7 % (0-5); LYMPHOCYTES 10.3 % (15-50); MCH 27.2 pg (26.0-34.0); MCHC 30.7 g/dL (31.0-37.0); MCV 88.4 fL (80.0-100.0); MEAN PLATELET VOLUME 9.7 fL (7.4-10.4); NEUTROPHILS 78.3 % (40-80); PLATELET COUNT 84 10x3/uL (130-400); RBC 3.46 10x6/uL (4.00-5.40); RDW 16.9 % (11.5-14.5)
[2019-11-22 06:23] LABS: CALC OSMOLALITY 291 mosm/kg (275-300); CARBON DIOXIDE 30.5 mmol/L (21.0-32.0); CHLORIDE - SERUM 106 mmol/L (98-107); GLUCOSE 75 mg/dL (74-106); POTASSIUM - SERUM 3.3 mmol/L (3.5-5.1); SODIUM 145 mmol/L (136-145); UREA NITROGEN 25 mg/dL (7-18)
[2019-11-22 06:24] LABS: CREATININE - SERUM 0.6 mg/dL (0.6-1.3); eGFR NON AFRICAN AMERICAN > 90 mL/min (90-120)
[2019-11-22 06:37] LABS: WBC 3.5 10x3/uL (4.8-10.8)
[2019-11-22 07:21] VITALS: BP 133/64
[2019-11-22 07:55] LABS: PLATELET ESTIMATE DECREASED
--- NOTE | 2019-11-22 08:54 | NUR ---
PT AM MEDS ADMINSITERED. PT GROIN CLEANED D/T BLADDER SPASM PHILLIPS LEAK AND NYSTATIN APPLIED. ZENIA APPLIED TO EXCORIATED BOTTOM. PT GOWN CHANGED. PT TURNED TO RIGHT SIDE WITH WEDGE IN PLACE. WCTM.
[2019-11-22] MEDS ORDERED: PACERONE200 MG PO (10:21)
--- NOTE | 2019-11-22 10:57 | NUR ---
PATIENT DISCHARGING TO [facility] VIA AMBULANCE. FAMILY AT BEDSIDE. NO HOME HEALTH OR DME NEEDED AT THIS TIME. AN APPOINTMENT WITH DR. GIBSON WILL BE MADE AT TIME OF DSICHARGE FROM THE FACILITY. PATIENT CHOICE FORM SIGNED, NO COMPARE DATA REVIEWED FAMILY IS EMPOLYED AT FACILITY. [facility] FORM SIGNED, COPY GIVEN TO FAMILY. DISCHARGE INSTRUCTIONS FAXED TO PCP, SNF AND REVIEWED WITH FAMILY.
--- NOTE | 2019-11-22 14:45 | NUR ---
PT. DISCAHRGING TO [facility] VIA AMBULANCE. DISCHARGE INSTRUCTIONS REVIEWED WITH PT AND FAMILY, STATES UNDERSTANDING. PT TRANSPORTED VIA [facility]ER.
== END 2019-11-22 14:45 | DRG 91 ==
LOC: D.REHAB 17:21
PROVIDERS: ADMIT Emergency Medicine; ATTEND Emergency Medicine
DX: G72.81 Critical illness myopathy (principal); J96.21 Acute and chronic respiratory failure with hypoxia; E87.1 Hypo-osmolality and hyponatremia; E87.2 Acidosis; J44.1 Chronic obstructive pulmonary disease with (acute) exacerbation; J90 Pleural effusion, not elsewhere classified; G62.9 Polyneuropathy, unspecified; M35.3 Polymyalgia rheumatica; E03.9 Hypothyroidism, unspecified; I10 Essential (primary) hypertension; D50.9 Iron deficiency anemia, unspecified; E87.6 Hypokalemia; R53.81 Other malaise; R13.12 Dysphagia, oropharyngeal phase; Z79.01 Long term (current) use of anticoagulants; Z86.718 Personal history of other venous thrombosis and embolism; R33.9 Retention of urine, unspecified; R47.1 Dysarthria and anarthria; Z99.81 Dependence on supplemental oxygen; K56.41 Fecal impaction